=== PATIENT | male | born 1985 | race Caucasian/White ===

== ENCOUNTER → 2020-07-02 09:50 | Outpatient (REF) | payer OTHER, SELFPAY ==
--- NOTE | 2020-07-02 09:30 | CA_ITS ---
Acquisition Time: 2020-07-02 10:08:18 Total Exercise Time: 00:09:31 Test Indications: cp Medications: see chart Protocol: CECILIA Max HR: 181 BPM 98% of Pred: 184 BPM Max BP: 144/060 mmHG Max Work Load: 10.9 METS Exercise stress test using Cecilia protocol total of 9 min 31 sec, METs 10.9. Pt tolerated well, denies any anginal sx. EKG without any arrhythmias, no ischemic changes in peak exercise and in recovery. . Normotensive response to exercise. Test reviewed with Dr. Duran. Referred By: Zafar Georges Overread By: Teo Thorne
[2020-07-02 11:34] LABS: MANUAL DIFF FLAG NO
[2020-07-02 11:53] LABS: Basophils Percent Auto 0.3 % (0-2); Eosinophils Absolute Auto 0.1 X10*3/uL (0.0-0.4); Eosinophils Percent Auto 1.3 % (0-4); Hematocrit 43.5 % (42-52); Hemoglobin 14.7 g/dl (14.0-18.0); Imm Gran Abs Auto 0.13 X10*3/uL (0.00-0.03); Imm Gran Pct Auto 1.3 % (0.0-0.4); Lymphocytes Absolute Auto 2.3 X10*3/uL (1.2-4.9); Lymphocytes Percent Auto 22.7 % (20-40); Mean Corpuscular HGB Conc 33.8 g/dl (31.0-36.0); Mean Corpuscular Hemoglobin 28.6 pg (27.0-33.0); Mean Corpuscular Volume 84.6 fL (80-98); Mean Platelet Volume 10.5 fL (9.4-12.4); Monocytes Absolute Auto 0.7 X10*3/uL (0.1-1.2); Monocytes Percent Auto 6.7 % (2-11); Neutrophils Absolute Auto 6.8 X10*3/uL (2.0-8.3); Neutrophils Percent Auto 67.7 % (45-73); Platelet Count 274 X10*3/uL (160-400); Red Blood Count 5.14 X10*6/uL (4.60-5.80); Red Cell Distribution Width 12.5 % (11.0-16.0); White Blood Count 10.1 X10*3/uL (4.8-10.8)
[2020-07-02 12:11] LABS: Alanine Aminotransferase 27 U/L (0-40); Albumin Level 4.7 g/dL (3.5-5.0); Alkaline Phosphatase 90 U/L (39-117); Amylase 59 U/L (28-100); Anion Gap 13 (12-20); Aspartate Amino Transferase 12 U/L (5-37); Bilirubin Total 0.6 mg/dL (0.0-1.0); Blood Urea Nitrogen 18 mg/dL (9-16); Calcium 9.2 mg/dL (8.4-10.2); Carbon Dioxide 27 mmol/L (22-29); Chloride 104 mmol/L (96-108); Cholesterol 176 mg/dL; Estimated Glomerular Filt Rate > 60; Glucose Fasting 204 mg/dL (60-99); HDL Cholesterol 41 mg/dL; LDL Cholesterol Calculated 115 mg/dl; Lipase 11 U/L (8-78); Potassium 4.6 mmol/l (3.3-5.1); Sodium 139 mmol/L (135-145); Total Protein 7.2 g/dL (6.5-8.0); Triglycerides 103 mg/dL
[2020-07-02 12:14] LABS: Thyroid Stimulating Hormone 1.64 mIU/mL (0.32-4.0)
[2020-07-02 12:29] LABS: Creatinine Urine 277.79 mg/dL; Microalbum/Creatinine Ratio Ur 18.7 ug/mg cr
[2020-07-02 14:00] LABS: Vitamin B12 658 pg/mL (200-900)
[2020-07-02 14:05] LABS: T4 Thyroxine 7.1 ug/dL (4.5-12.0)
== END ==
LOC: HO.CARD 09:50
PROVIDERS: PCP Internal Medicine; Visit Provider Internal Medicine
DX: R07.9 Chest pain, unspecified (principal); E11.65 Type 2 diabetes mellitus with hyperglycemia; I10 Essential (primary) hypertension; E78.5 Hyperlipidemia, unspecified; E66.9 Obesity, unspecified; E78.00 Pure hypercholesterolemia, unspecified; K85.90 Acute pancreatitis without necrosis or infection, unspecified
CPT/HCPCS: 36415; 80053; 80061; 82043; 82150; 82607; 82746; 83690; 84436; 84443; 85025; 93017

== ENCOUNTER → 2020-08-07 10:20 | Outpatient (BNVA) | payer OTHER, SELFPAY | PROVIDERS: PCP Internal Medicine; Referring Provider Internal Medicine; Visit Provider Nurse Practitioner Gerontology | DX: Z76.89 Persons encountering health services in other specified circumstances (principal) ==

== ENCOUNTER 2020-10-09 15:00 | Outpatient (RCR) | payer OTHER, SELFPAY ==
--- NOTE | 2020-08-21 16:28 | MHC.PT.EP ---
[facility] [place] Office [place] Office [place] Office [address] Robert Lawson [address] [phone] F: [phone] F: [phone] F: [phone] F: [phone] Physical Therapy Plan of Care Date of Evaluation: 08/21/20 Date of Surgery: NA Diagnosis: dorsalgia Assessment: 35 y/o male referred to PT with dorsalgia. 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 He often stands with his 15# camera in thoracic extension leaning backwards. Reports pain and difficulty with prolonged standing, prolonged sitting, 1/2 kneeling. Examination shows significantly decreased lumbar AROM, significantly decreased HS length, increased tenderness to palpate mid thoracic and low back paraspinals, SI dysfunction and impaired postural awarenesss. Recommend PT 2x/week for 4 weeks (he can only come 1x/week) to address impairments, implement HEP, and optimize functional mobility. Frequency and Duration: The patient will be seen 1x/week for 5 weeks Short Term Goals: 3 weeks: 1 I with HEP 2. I with use of lumbar roll while sitting 3. Improve lumbar AROM flexion to 75% [employer] Goals: 5 weeks: 1. I with HEP and self management of sx 2. Pt will be able to sit >2 hours with pain < 3/10 and use oflumbar roll 3. Pt will be able to perform photo shoot for 3 hours with pain < 3/10 Treatment Plan: Modalities to reduce pain, spasms and effusion. Manual therapy to restore motion and function. Therapeutic exercise to improve strength and flexibility. Neuromuscular re-education for posture and balance. Therapeutic activities to return to functional activities of daily living. Please sign and return to therapist. Thank you for your referral.
--- NOTE | 2020-11-08 11:10 | MHC.PT.DC ---
[facility] [place] Office [place] Office [place] Office [address] Robert Lawson [address] [phone] F: [phone] F: [phone] F: [phone] F: [phone] Physical Therapy Discharge Report Diagnosis: dorsalgia Date of Surgery: NA Date of Evaluation: 08/21/20 Date of Discharge: 11/08/20 Treatments to Date: 5 Cancellations to Date: 0 No Shows to Date: 0 Discharge Status: Independent with HEP Discharge Summary: Pt did not f/u with further visits at this time. At time of last attended session, he was I with HEP and demonstrating improved posture. Electronically signed by: Wilma Gaffney PT Please sign and return to therapist. Thank you for your referral.
== END 2020-11-08 11:11 | disposition other institution (70) ==
LOC: HO.PT 15:00
PROVIDERS: Visit Provider Internal Medicine
DX: M54.9 Dorsalgia, unspecified (principal)
CPT/HCPCS: 97110; 97161

== ENCOUNTER 2020-10-29 12:53 | Outpatient (REF) | payer OTHER, SELFPAY ==
--- NOTE | ~2020-10-29 | XR_ITS ---
EXAMINATION: XR CERVICAL SPINE CLINICAL INFORMATION: Neck pain. COMPARISON: None TECHNIQUE: 3 views of the cervical spine were obtained. FINDINGS: There is normal cervical lordosis. The vertebral heights, alignment and disc heights are normal. There is mild ventral spondylosis at C4-C5, C5-C6 and C6-C7 disc levels. No visible acute fracture, dislocation or lytic process seen. The prevertebral soft tissues are normal. XR/XR cervical spine 2V IMPRESSION: Mild ventral spondylosis C4-C5 to C6-C7 disc levels. No visible acute fracture, dislocation or lytic process seen.
[2020-10-29 14:11] LABS: MANUAL DIFF FLAG NO
[2020-10-29 14:14] LABS: Basophils Percent Auto 0.2 % (0-2); Eosinophils Absolute Auto 0.2 X10*3/uL (0.0-0.4); Eosinophils Percent Auto 1.5 % (0-4); Hematocrit 40.6 % (42-52); Hemoglobin 14.1 g/dl (14.0-18.0); Imm Gran Abs Auto 0.11 X10*3/uL (0.00-0.03); Imm Gran Pct Auto 1.1 % (0.0-0.4); Lymphocytes Absolute Auto 2.1 X10*3/uL (1.2-4.9); Lymphocytes Percent Auto 20.7 % (20-40); Mean Corpuscular HGB Conc 34.7 g/dl (31.0-36.0); Mean Corpuscular Hemoglobin 29.3 pg (27.0-33.0); Mean Corpuscular Volume 84.4 fL (80-98); Mean Platelet Volume 10.7 fL (9.4-12.4); Monocytes Absolute Auto 0.6 X10*3/uL (0.1-1.2); Monocytes Percent Auto 5.6 % (2-11); Neutrophils Absolute Auto 7.1 X10*3/uL (2.0-8.3); Neutrophils Percent Auto 70.9 % (45-73); Platelet Count 235 X10*3/uL (160-400); Red Blood Count 4.81 X10*6/uL (4.60-5.80); Red Cell Distribution Width 12.5 % (11.0-16.0)
[2020-10-29 14:27] LABS: Estimated Average Glucose 137 mg/dL; Hemoglobin A1c % 6.4 %
[2020-10-29 14:42] LABS: Alanine Aminotransferase 20 U/L (0-40); Albumin Level 4.3 g/dL (3.5-5.0); Alkaline Phosphatase 82 U/L (39-117); Anion Gap 12 (12-20); Aspartate Amino Transferase 15 U/L (5-37); Bilirubin Total 0.6 mg/dL (0.0-1.0); Blood Urea Nitrogen 13 mg/dL (9-16); Carbon Dioxide 28 mmol/L (22-29); Chloride 104 mmol/L (96-108); Estimated Glomerular Filt Rate > 60; Glucose Random 127 mg/dL (60-115); Sodium 140 mmol/L (135-145); Total Protein 6.8 g/dL (6.5-8.0)
[2020-10-29 15:02] LABS: Thyroid Stimulating Hormone 1.28 uIU/mL (0.32-4.0)
== END 2020-10-29 12:54 | disposition home or self-care (01) ==
LOC: HO.LAB 12:53
PROVIDERS: PCP Internal Medicine; Visit Provider Internal Medicine
DX: M54.2 Cervicalgia (principal); R42 Dizziness and giddiness; E11.65 Type 2 diabetes mellitus with hyperglycemia
CPT/HCPCS: 36415; 72040; 80053; 83036; 84443; 85025

== ENCOUNTER 2020-12-25 16:00 | Outpatient (RCR) | payer OTHER, SELFPAY ==
[2020-11-13 14:10] VITALS: BP 130/73; PULSE 104
--- NOTE | 2020-11-13 14:58 | MHC.PT.EP ---
[facility] [place] Office [place] Office [place] Office [address] Robert Lawson [address] [phone] F: [phone] F: [phone] F: [phone] F: [phone] Physical Therapy Plan of Care Date of Evaluation: 11/13/20 Date of Surgery: NA Diagnosis: Dizziness and giddiness Assessment: 35 year old male referred for dizziness and giddiness . Pt reports of having sudden onset of dizziness and neck pain about 3 weeks back. Denies any trauma or fall. Pt presented with intact smooth pursuit, saccades, visual tracking, static and dynamic balance and VOR. He was negative for nystagmus and vertigo in B mak pikes and B roll test. He only experiences dizziness everytime he moved from supine to sit and does sudden neck movements. 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 Pt's symptoms suggestive of cervicogenic dizziness. He does not appear to have symptoms of vestibular hypofunction. Pt would benefit from return to therapy to cervical assessment Frequency and Duration: The patient will be seen 1/ week for 1 week Short Term Goals: 1. Pt will return to therapy for detailed cervical assessment in 1 week. Detention Goals: Treatment Plan: Modalities to reduce pain, spasms and effusion. Manual therapy to restore motion and function. Therapeutic exercise to improve strength and flexibility. Neuromuscular re-education for posture and balance. Therapeutic activities to return to functional activities of daily living. Electronically signed by: Emily Rader DPT Please sign and return to therapist. Thank you for your referral.
--- NOTE | 2020-11-20 16:55 | MHC.PT.RE ---
[facility] [place] Office [place] Office [place] Office [address] Robert Lawson [address] [phone] F: [phone] F: [phone] F: [phone] F: [phone] Physical Therapy Re-evaluation Diagnosis: Cervicalgia Date of Surgery: NA Date of Evaluation: 11/20/20 Treatments to Date: 2 Cancellations to Date: 0 No Shows to Date: 0 Subjective: Refer to evaluation Pain Score: 3 Pain Location: Sub-occipital release Objective Measures: Cervical ROM: Flexion: 45 degrees, 4- RSB: 30 degrees, 4- LSB:30 degrees, 4- RROT: 45 degrees, 4- LROT: 55 degrees, 4- Extension:40 degrees, 4- (Pain in SO Muscles) C1-C2 Rotation: Moderate Restriction B Shoulder ROM WNL Shoulder MMT: Flexion: 4+ B Abduction: 4+ B Extension: 5- B IR: 4+ B ER: 4 B Assessment: Jean-Pierre is a 35-year-old male presenting to physical therapy after experiencing dizziness, headaches, and pain in the back of his neck and head. He displays deficits in global cervical ROM, cervical muscle strength, B shoulder strength, impaired posture and tightness in his sub-occipital musculature and cervical extensors. 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 Jean-Pierre was introduced to cervical ROM and postural strengthening exercises today. He tolerated all exercises without any aggravation of his pain. Pt was educated on the importance of maintaining proper posture when working from home and provided with home exercises to reduce his pain and improve his posture. He also displayed tightness and muscle guarding in his suboccipital musculature, which is where he experiences the majority of his pain. Future therapy sessions should continue to focus on improving pt posture and reducing tightness in his suboccipital musculature. 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 2.) Pt will independently check and assess seated posture every 30 minutes while working within 3 weeks. Half-Way Goals: 1.) Pt will demonstrate active cervical rotation WNL within 6 weeks to allow him to safely check blind spots while driving within 6 weeks. 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 Frequency and Duration: The patient will be seen 2 visits per week for 6 weeks. Treatment Plan: Therapeutic Exercise Dynamic Therapeutic Activities Neuromuscular Re-ed Manual Therapies Joint Mobilization Taping Home Exercise Program Patient Education Hot or Cold Pack Evaluate cervical spine Reviewed/ Agreed with Student Documentation: Yes Therapist: Emily Rader PT DPKori Electronically signed by: Emily Rader PT, DPT Please sign and return to therapist. Thank you for your referral.
--- NOTE | 2021-01-01 11:33 | MHC.PT.DC ---
[facility] [place] Office [place] Office [place] Office [address] Robert Lawson [address] [phone] F: [phone] F: [phone] F: [phone] F: [phone] Physical Therapy Discharge Report Diagnosis: Cervicalgia Date of Surgery: NA Date of Evaluation: 11/20/20 Date of Discharge: 01/01/21 Treatments to Date: 6 Cancellations to Date: 0 No Shows to Date: 0 Discharge Status: Improved Function Independent with HEP Discharge Summary: Jean-Pierre has completed 6 visits of outpatient physical therapy. During this time he has made improvements in cervical ROM and posture. He continues to demonstrate compensatory patterns when performing scapular strengthening exercises and reaching overhead as well as tightness in his BL upper trap. Jean-Pierre continues to report pain in his neck and in the back of his head which has been persistent and has not been resolving. Jean-Pierre requested that today be his last day of therapy due to lack of progress and his ability to perform his HEP independently. He was educated on proper performance of his HEP as well as STM techniques he can utilize at home to loosen his upper trap musculature. He has met 50% of his physical therapy is now being discharged from physical therapy per his request. Jean-Pierre reports he has a follow-up appointment with him physician at the end of this month to address his neck pain and intermittent episodes of dizziness. Electronically signed by: Emily Rader, PT, DPT Please sign and return to therapist. Thank you for your referral.
== END 2021-01-13 09:41 | disposition other institution (70) ==
LOC: HO.PT 16:00
PROVIDERS: PCP Internal Medicine; Visit Provider Internal Medicine
DX: R42 Dizziness and giddiness (principal)
CPT/HCPCS: 95992; 97012; 97110; 97112; 97140; 97161; 97164

== ENCOUNTER → 2021-01-20 13:25 | Outpatient (BNVA) | payer OTHER, SELFPAY | PROVIDERS: PCP Internal Medicine; Visit Provider Nurse Practitioner Gerontology | DX: E11.9 Type 2 diabetes mellitus without complications (principal); E55.9 Vitamin D deficiency, unspecified; E66.01 Morbid (severe) obesity due to excess calories; Z68.36 Body mass index [BMI] 36.0-36.9, adult; Z79.84 Long term (current) use of oral hypoglycemic drugs; Z71.3 Dietary counseling and surveillance | CPT/HCPCS: 82947; 99212 ==

== ENCOUNTER → 2021-02-03 14:05 | Outpatient (REF) | payer OTHER, SELFPAY | LOC: HO.SL 14:05 | PROVIDERS: PCP Internal Medicine; Visit Provider Internal Medicine | DX: Z13.89 Encounter for screening for other disorder (principal) ==

== ENCOUNTER 2021-03-10 11:50 | Emergency (ER) | payer OTHER, SELFPAY ==
--- NOTE | 2021-03-10 | ECG_ITS ---
Test Reason : CHEST PAIN Blood Pressure : / mmHG Vent. Rate : 083 BPM Atrial Rate : 083 BPM P-R Int : 132 ms QRS Dur : 086 ms QT Int : 338 ms P-R-T Axes : 013 000 -05 degrees QTc Int : 397 ms Normal sinus rhythm Minimal voltage criteria for LVH, may be normal variant Nonspecific T wave abnormality Abnormal ECG When compared with ECG of 08-JUN-2020 04:51, No significant change was found Referred By: Generic ED Physician Electronically Signed By:Jayjay Valdez
--- NOTE | ~2021-03-10 | XR_ITS ---
EXAMINATION: XR CHEST CLINICAL INFORMATION: Cough and chest pain. COMPARISON: None TECHNIQUE: 2 views of the chest were obtained. FINDINGS: The lungs are well-expanded and clear of acute process. The heart size and pulmonary vascularity is normal. No gross bony abnormality seen. XR/XR chest 2V IMPRESSION: Unremarkable chest exam.
[2021-03-10 12:02] VITALS: BP 136/70; PULSE 89; RESP 16; TEMP 36.6; O2SAT 98; BMI 36.3
--- NOTE | 2021-03-10 12:30 | ED_ITS ---
HPI - Chest Pain General Chief Complaint: Chest Pain Stated Complaint: elevated heart rate Time Seen by Provider: 03/10/21 12:19 Source: patient Mode of arrival: ambulatory Limitations: no limitations History of Present Illness HPI narrative: Patient presents to the ED elevated heart rate ( 140s) and intermittent chest pain for 1 year. Patient has been evaluated by his PCP for this. Patient had a normal stress test last year. Patient states his thyroid level were normal. Patient states blood count was normal. Patient denies any family history of anyone having a heart attack less than 40 of 50. Patient den ies any drug use. Patient denies any alcohol abuse. Patient denies taking any new any G drinks or caffeine abuse. Patient denies any coughing, fever, chills, swelling of lower extremity, chest pain or shortness of breath on exertion, calf pain, recent surgery, or recent trauma. Patient states having similar episodes yesterday goint into today so came to the ED for evaluation. Patient's PCP aw are if he has being having this problem for 1 year. Patient presently not in any distress Related Data Home Medications Medication Instructions Recorded Confirmed Bacillus coagulans 250 million cell PO 07/09/20 01/20/21 cell chewable tablet aspirin 81 mg tablet,delayed 81 mg PO DAILY 07/09/20 01/20/21 release milk thistle 150 mg capsule 150 mg PO BID 07/09/20 01/20/21 melatonin 5 mg capsule 5 mg PO cap 08/07/20 01/20/21 turmeric 400 mg capsule 400 mg PO cap 08/07/20 01/20/21 apple cider vinegar 600 mg capsule 600 mg PO cap 01/20/21 01/20/21 Previous Rx's Medication Instructions Recorded flash glucose scanning reader #1 ea 07/02/20 ibuprofen 800 mg tablet 800 mg PO Q8H PRN 15 Days #30 tab 08/22/20 simvastatin 5 mg tablet 5 mg PO BEDTIME #30 tab 10/28/20 flash glucose sensor 1 ea TOPICAL DIRECTED #2 kit 12/26/20 doxycycline hyclate 100 mg tablet 100 mg PO BID 14 Days #28 tab 01/10/21 empagliflozin 10 mg tablet 10 mg PO DAILY #30 tab 01/16/21 lisinopril 2.5 mg tablet 2.5 mg PO DAILY 90 Days #90 tab 01/27/21 metformin 500 mg/5 mL oral solution 1,000 mg PO BID 30 Days #600 ml 03/03/21 metformin 500 mg tablet 1,000 mg PO BID 90 Days #360 tab 03/06/21 Allergies Allergy/AdvReac Type Severity Reaction Status Date / Time apple [APPLE] Allergy Severe THROAT Verified 01/20/21 13:59 CLOSING AND HIVES animal dander [ANIMAL DANDER] Allergy Intermediate PUFFY EYES Unverified 01/20/21 13:59 SNEEZING COUGHING bees Allergy Unknown Unknown Uncoded 01/20/21 13:59 Review of Systems Review of Systems: Yes all other systems are reviewed and are negative Constitutional: Constitutional: Reports as per HPI and Reports no additional constitutional complaints Eyes: Eyes: Reports as per HPI and Reports no additional eye complaints ENT: Reports system reviewed and no additional complaints, except as documented and Reports as per HPI Cardiovascular: Cardiovascular: Reports as per HPI, Reports no additional ca rdiovascular complaints and Reports chest pain (For 1 year) Comments: Elevated heart rate for 1 year Respiratory: Respiratory: Reports as per HPI and Reports no additional respiratory complaints Gastrointestinal: Gastrointestinal: Reports as per HPI and Reports no additional gastrointestinal complaints Musculoskeletal: Musculoskeletal: Reports no additional musculoskeletal complaints and Reports as per HPI Neurologic: Reports system reviewed and no additional complaints, except as documented and Reports as per HPI Psychiatric: Psychiatric: Reports no additional psychiatric complaints and Reports as per HPI [facility] Past Medical History Medical History (Updated 03/10/21 @ 15:13 by RADHA Younger) Bilateral hand pain Diabetes mellitus type 2, controlled, without complications Fatty liver Hypercholesterolemia Obesity Obesity due to excess calories Pancreatitis Type 2 diabetes mellitus with hyperglycemia Vitamin D deficiency Surgical History No pertinent past surgical history Family History Family History Father Alive and well Mother Alive and well Maternal Grandfather Diabetes Maternal Grandmother Diabetes Social History Social History Household Members: Significant Other Household Members Other:: roomates Alcohol intake: never Advance Directives: Yes Advance Directives Information Provided: No Advance Directives on File: No Physical Exam Vital Signs: Vital Signs: Last Vital Signs Temp 97.9 F 03/10/21 12:02 Pulse 80 03/10/21 18:04 Resp 16 03/10/21 18:04 BP 119/65 03/10/21 18:04 Pulse Ox 97 03/10/21 18:04 Body Mass Index 36.3 Const: General: cooperative, healthy appearing, comfortable, no acute distress, well developed, alert, awake and Physically active Orientation/consciousness: patient oriented x3 HENMT: Head: Yes normal to inspection, Yes No palpable skull fracture present, Yes normocephalic and Yes atraumatic Eyes: General: appearance normal, both eyes and all related structures Neck: Neck: Yes normal visual inspection, Yes full ROM, Yes no lymphadenopathy, Yes no meningeal signs, Yes trachea midline, Yes supple and No tender Chest: Chest palpation & inspection: normal inspection of the chest and normal palpation of entire chest wall Resp: Effort & Inspection: normal respiratory effort and able to speak in complete sentences Auscultation: clear to auscultation bilaterally Cardio: Jugular venous distension: no JVD Heart sounds: S1 normal heart sound present and S2 normal heart sound present GI: Inspection: Yes normal to inspection and No abdominal wall ecchymosis Palpation (GI): Soft to palpation, not firm, nontender, no guarding and not rigid : General: No CVA tenderness and Yes no CVA tenderness Back/Spine/Pelvis: Back: no CVA tenderness, No CVA tenderness and No back tenderness Skin: General skin exam: no rashes or lesions noted and elasticity normal Neuro: General: patient oriented x3, no meningeal signs and CN's II-XI intact bilaterally Cranial nerves: Yes CN's II-XII intact bilaterally Extrem: Other: Lower extremities negative for swelling, pitting edema, or calf tenderness Psych: Appearance: grossly normal, well kempt and not disheveled Course Course Course Narrative: I reviewed patient's lab results on this patient 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 Will evaluate patient make sure there is no cardiac e vent in the ED. symptoms may be due to anxiety, but with medical workup Reevaluation(s) Reevaluation #1: patient not in any distress. Patient's EKG negative for STEMI and negative for any new changes. Patient's troponins after having atypical chest pain since yesterday came back negative. Patient's D-dimer is negative. Patient's PERC score is 0. Chest x-ray normal. COVID swab negative. Patient presently comfortable in bed not in any distress. Ab not suspect [place] or PE or any pulmonary / cardiology indication. symptoms most likely due to anxiety due to patient having the symptoms 1 year and has had multiple normal workup by Cardiology and PCP. thryoid levels are normal. Patient informed to follow-up with PCP. Patient asymptomatic and did not have any chest pain at discharge. patient was in self to comfortably watching movies Time: 15:08 MDM - Chest Pain MDM Narrative Medical decision making narrative: atypical chest pain. Anxiety Lab Data Result diagrams: 03/10/21 13:04 03/10/21 13:04 Labs: Lab Results 03/10/21 03/10/21 03/10/21 Range/Units 13:04 13:04 13:04 WBC 11.1 H (4.8-10.8) X10*3/uL RBC 5.18 (4.60-5.80) X10*6/uL Hgb 14.9 (14.0-18.0) g/dl Hct 43.4 (42-52) % MCV 83.8 (80-98) fL MCH 28.8 (27.0-33.0) pg MCHC 34.3 (31.0-36.0) g/dl RDW 12.9 (11.0-16.0) % Plt Count 260 (160-400) X10*3/uL MPV 10.2 (9.4-12.4) fL Immature Gran % (Auto) 1.3 H (0.0-0.4) % Neut % (Auto) 73.8 H (45-73) % Lymph % (Auto) 17.9 L (20-40) % [place] % (Auto) 5.8 (2-11) % Eos % (Auto) 0.8 (0-4) % Baso % (Auto) 0.4 (0-2) % Lymph # (Auto) 2.0 (1.2-4.9) X10*3/uL [place] # (Auto) 0.7 (0.1-1.2) X10*3/uL Eos # (Auto) 0.1 (0.0-0.4) X10*3/uL Baso # (Auto) 0.0 (0.0-0.2) X10*3/uL Abs Immat Gran (auto) 0.15 H (0.00-0.03) X10*3/uL Absolute Neuts (auto) 8.2 (2.0-8.3) X10*3/uL Absolute Nucleated RBC 0.000 (0.0-0.012) X10*3/uL Nucleated RBC % (auto) 0.0 (0.0-0.2) /100WBC PT 12.5 (10.8-13.0) SEC INR 1.1 (0.9-1.1) APTT 32.1 (24.1-38.0) SEC D-Dimer < 200 NG/ML Sodium 140 (135-145) mmol/L Potassium 4.3 (3.3-5.1) mmol/L Chloride 107 (96-108) mmol/L Carbon Dioxide 23 (22-29) mmol/L Anion Gap 14 (12-20) BUN 15 (9-16) mg/dL Creatinine 0.87 (0.5-1.4) mg/dL Estim Creat Clear Calc 130.0 Estimated GFR > 60 Random Glucose 186 H D (60-115) mg/dL Calcium 9.4 (8.4-10.2) mg/dL Total Bilirubin 0.6 (0.0-1.0) mg/dL AST 14 (5-37) U/L ALT 26 (0-40) U/L Alkaline Phosphatase 79 (39-117) U/L Troponin I High Sens (<3.5-35.0) ng/L Total Protein 6.7 (6.5-8.0) g/dL Albumin 4.3 (3.5-5.0) g/dL TSH 0.68 (0.32-4.0) uIU/mL COVID-19 (JUANY) (Negative) COVID-19 Clin Com 03/10/21 03/10/21 03/10/21 Range/Units 13:04 13:04 16:53 WBC (4.8-10.8) X10*3/uL RBC (4.60-5.80) X10*6/uL Hgb (14.0-18.0) g/dl Hct (42-52) % MCV (80-98) fL MCH (27.0-33.0) pg MCHC (31.0-36.0) g/dl RDW (11.0-16.0) % Plt Count (160-400) X10*3/uL MPV (9.4-12.4) fL Immature Gran % (Auto) (0.0-0.4) % Neut % (Auto) (45-73) % Lymph % (Auto) (20-40) % [place] % (Auto) (2-11) % Eos % (Auto) (0-4) % Baso % (Auto) (0-2) % Lymph # (Auto) (1.2-4.9) X10*3/uL [place] # (Auto) (0.1-1.2) X10*3/uL Eos # (Auto) (0.0-0.4) X10*3/uL Baso # (Auto) (0.0-0.2) X10*3/uL Abs Immat Gran (auto) (0.00-0.03) X10*3/uL Absolute Neuts (auto) (2.0-8.3) X10*3/uL Absolute Nucleated RBC (0.0-0.012) X10*3/uL Nucleated RBC % (auto) (0.0-0.2) /100WBC PT (10.8-13.0) SEC INR (0.9-1.1) APTT (24.1-38.0) SEC D-Dimer NG/ML Sodium (135-145) mmol/L Potassium (3.3-5.1) mmol/L Chloride (96-108) mmol/L Carbon Dioxide (22-29) mmol/L Anion Gap (12-20) BUN (9-16) mg/dL Creatinine (0.5-1.4) mg/dL Estim Creat Clear Calc Estimated GFR Random Glucose (60-115) mg/dL Calcium (8.4-10.2) mg/dL Total Bilirubin (0.0-1.0) mg/dL AST (5-37) U/L ALT (0-40) U/L Alkaline Phosphatase (39-117) U/L Troponin I High Sens < 3.5 < 3.5 (<3.5-35.0) ng/L Total Protein (6.5-8.0) g/dL Albumin (3.5-5.0) g/dL TSH (0.32-4.0) uIU/mL COVID-19 (JUANY) Negative (Negative) COVID-19 Clin Com See Note Discharge Plan Discharge Clinical Impression: Atypical chest pain Patient Disposition: Home, Self-Care Instructions: Chest Pain (ED) Additional Instructions: return to the ED for worsening chest pain, shortness of breath, swelling of lower extremity, calf pain, coughing up blood, fever, chills, dizziness, or any other concerning symptoms. 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 Prescriptions: No Action (DME) FreeStyle Kobi 14 Day Guffey Misc See Rx Instructions .ROUTE .MEDSUPPLY Qty: 1 RF: 0 simvastatin 5 mg tablet 5 mg PO BEDTIME Qty: 30 RF: 5 flash glucose sensor [FreeStyle Kobi 14 Day Sensor] Kit 1 ea topical DIRECTED Qty: 2 RF: 5 lisinopril 2.5 mg tablet 2.5 mg PO DAILY 90 Days Qty: 90 RF: 3 metformin 500 mg/5 mL solution 1,000 mg PO BID 30 Days Qty: 600 RF: 5 metformin 500 mg tablet 1,000 mg PO BID 90 Days Qty: 360 RF: 3 doxycycline hyclate 100 mg tablet 100 mg PO BID 14 Days Qty: 28 RF: 0 aspirin [Adult Aspirin Regimen] 81 mg tablet,delayed release (DR/EC) 81 mg PO DAILY RF: 0 Digestive Advantage Prob Gummy 250 million cell tablet,chewable PO RF: 0 milk thistle 150 mg capsule 150 mg PO BID RF: 0 melatonin 5 mg capsule 5 mg PO RF: 0 turmeric 400 mg capsule 400 mg PO RF: 0 apple cider vinegar 600 mg capsule 600 mg PO RF: 0 ibuprofen 800 mg tablet 800 mg PO Q8H PRN (Reason: pain) 15 Days Qty: 30 RF: 0 Jardiance 10 mg tablet 10 mg PO DAILY Qty: 30 RF: 4 Referrals: Po,Zafar Sinha MD [Primary Care Provider] - 2 days ( atypical chest pain for 1 year. D-dimer negative. Troponins negative. EKG negative for STEMI. COVID swab negative. Chest x-ray normal. Thyroid levels) Interventions: ED Discharge Assessment Last Done: 03/10/21 18:14 Discharge Date/Time: 03/10/21 18:16 Print Language: Anguill[place]
[2021-03-10 13:10] LABS: MANUAL DIFF FLAG NO
[2021-03-10 13:12] LABS: Basophils Percent Auto 0.4 % (0-2); Eosinophils Absolute Auto 0.1 X10*3/uL (0.0-0.4); Eosinophils Percent Auto 0.8 % (0-4); Hematocrit 43.4 % (42-52); Hemoglobin 14.9 g/dl (14.0-18.0); Imm Gran Abs Auto 0.15 X10*3/uL (0.00-0.03); Imm Gran Pct Auto 1.3 % (0.0-0.4); Lymphocytes Percent Auto 17.9 % (20-40); Mean Corpuscular HGB Conc 34.3 g/dl (31.0-36.0); Mean Corpuscular Hemoglobin 28.8 pg (27.0-33.0); Mean Corpuscular Volume 83.8 fL (80-98); Mean Platelet Volume 10.2 fL (9.4-12.4); Monocytes Absolute Auto 0.7 X10*3/uL (0.1-1.2); Monocytes Percent Auto 5.8 % (2-11); Neutrophils Absolute Auto 8.2 X10*3/uL (2.0-8.3); Neutrophils Percent Auto 73.8 % (45-73); Platelet Count 260 X10*3/uL (160-400); Red Blood Count 5.18 X10*6/uL (4.60-5.80); Red Cell Distribution Width 12.9 % (11.0-16.0); White Blood Count 11.1 X10*3/uL (4.8-10.8)
[2021-03-10 13:18] LABS: INTERNATIONAL NORM RATIO 1.1 (0.9-1.1); Prothrombin Time 12.5 SEC (10.8-13.0)
[2021-03-10 13:21] LABS: D Dimer < 200 NG/ML; Partial Thromboplastin Time 32.1 SEC (24.1-38.0)
[2021-03-10 13:26] LABS: COVID-19 Test Negative (Negative)
[2021-03-10 13:42] LABS: Alanine Aminotransferase 26 U/L (0-40); Albumin Level 4.3 g/dL (3.5-5.0); Alkaline Phosphatase 79 U/L (39-117); Anion Gap 14 (12-20); Aspartate Amino Transferase 14 U/L (5-37); Bilirubin Total 0.6 mg/dL (0.0-1.0); Blood Urea Nitrogen 15 mg/dL (9-16); Calcium 9.4 mg/dL (8.4-10.2); Carbon Dioxide 23 mmol/L (22-29); Chloride 107 mmol/L (96-108); Estimated Glomerular Filt Rate > 60; Glucose Random 186 mg/dL (60-115); Potassium 4.3 mmol/L (3.3-5.1); Sodium 140 mmol/L (135-145); Total Protein 6.7 g/dL (6.5-8.0)
[2021-03-10 13:48] LABS: Troponin-I High Sensitivity < 3.5 ng/L (<3.5-35.0)
[2021-03-10 14:02] LABS: TSH reflex Free T4 0.68 uIU/mL (0.32-4.0)
[2021-03-10 16:35] VITALS: BP 114/62; PULSE 80; RESP 16; O2SAT 98
[2021-03-10 17:40] LABS: Troponin-I High Sensitivity < 3.5 ng/L (<3.5-35.0)
[2021-03-10 18:04] VITALS: BP 119/65; PULSE 80; RESP 16; O2SAT 97
== END 2021-03-10 18:16 | disposition home or self-care (01) ==
PROVIDERS: Physician Assistant; Emergency Provider Emergency Medicine; PCP Internal Medicine
DX: R07.89 Other chest pain (principal); E11.9 Type 2 diabetes mellitus without complications; Z79.84 Long term (current) use of oral hypoglycemic drugs; Z20.822 Contact with and (suspected) exposure to COVID-19
CPT/HCPCS: 36415; 71046; 80053; 84443; 84484; 85025; 85379; 85610; 85730; 87635; 93005; 99283; 99285

== ENCOUNTER → 2021-06-23 14:42 | Outpatient (BNVA) | payer OTHER, SELFPAY | PROVIDERS: PCP Internal Medicine; Referring Provider Internal Medicine; Visit Provider Internal Medicine Cardiovascular Disease | DX: R07.89 Other chest pain (principal); R00.2 Palpitations | CPT/HCPCS: 93005; 99202 ==

== ENCOUNTER → 2021-07-28 13:33 | Outpatient (BNVA) | payer OTHER, SELFPAY | PROVIDERS: PCP Internal Medicine; Visit Provider Nurse Practitioner Gerontology | DX: E55.9 Vitamin D deficiency, unspecified (principal); E11.9 Type 2 diabetes mellitus without complications; L60.0 Ingrowing nail | CPT/HCPCS: 82947; 83036; 99212 ==

== ENCOUNTER 2021-08-13 11:44 | Outpatient (REF) | payer OTHER, SELFPAY ==
[2021-08-13 12:04] LABS: MANUAL DIFF FLAG NO
[2021-08-13 12:27] LABS: Basophils Absolute Auto 0.1 X10*3/uL (0.0-0.2); Basophils Percent Auto 0.6 % (0-2); Eosinophils Absolute Auto 0.5 X10*3/uL (0.0-0.4); Eosinophils Percent Auto 4.8 % (0-4); Hematocrit 45.8 % (42.0-52.0); Hemoglobin 15.8 g/dl (14.0-18.0); Imm Gran Abs Auto 0.12 X10*3/uL (0.00-0.03); Imm Gran Pct Auto 1.3 % (0.0-0.4); Lymphocytes Absolute Auto 2.1 X10*3/uL (1.2-4.9); Mean Corpuscular HGB Conc 34.5 g/dl (31.0-36.0); Mean Corpuscular Hemoglobin 29.1 pg (27.0-33.0); Mean Corpuscular Volume 84.3 fL (80.0-98.0); Mean Platelet Volume 10.4 fL (9.4-12.4); Monocytes Absolute Auto 0.7 X10*3/uL (0.1-1.2); Monocytes Percent Auto 6.8 % (2-11); Neutrophils Absolute Auto 6.2 x10*3/uL (2.0-8.3); Neutrophils Percent Auto 64.5 % (45-73); Platelet Count 236 X10*3/uL (160-400); Red Blood Count 5.43 X10*6/uL (4.60-5.80); Red Cell Distribution Width 12.6 % (11.0-16.0); White Blood Count 9.6 X10*3/uL (4.8-10.8)
[2021-08-13 12:41] LABS: Alanine Aminotransferase 37 U/L (0-40); Albumin Level 4.5 g/dL (3.5-5.0); Alkaline Phosphatase 81 U/L (39-117); Anion Gap 11 (12-20); Aspartate Amino Transferase 18 U/L (5-37); Bilirubin Total 0.5 mg/dL (0.0-1.0); Blood Urea Nitrogen 19 mg/dL (9-16); Calcium 9.3 mg/dL (8.4-10.2); Carbon Dioxide 24 mmol/L (22-29); Chloride 109 mmol/L (96-108); Cholesterol 165 mg/dL; Estimated Glomerular Filt Rate > 60; Glucose Fasting 152 mg/dL (60-99); HDL Cholesterol 45 mg/dL; LDL Cholesterol Calculated 100 mg/dl; Potassium 4.4 mmol/L (3.3-5.1); Sodium 140 mmol/L (135-145); Total Protein 7.1 g/dL (6.5-8.0); Triglycerides 101 mg/dL
[2021-08-13 12:58] LABS: Creatinine Urine 75.17 mg/dL; Microalbumin Urine < 5.0 mg/L
[2021-08-13 13:03] LABS: Vitamin D 25-OH Total 41.5 ng/mL (>30)
[2021-08-13 13:06] LABS: Thyroid Stimulating Hormone 1.72 uIU/mL (0.32-4.0); Vitamin D 25-OH Total 38.5 ng/mL (>30)
[2021-08-13 13:15] LABS: Folate 16.1 ng/mL (> or = 4.0); Vitamin B12 445 pg/mL (200-900)
[2021-08-15 16:05] LABS: LDL Cholesterol Direct 109 mg/dL (<100)
== END 2021-08-13 11:45 | disposition home or self-care (01) ==
LOC: HO.LAB 11:44
PROVIDERS: Internal Medicine Cardiovascular Disease; Absent Provider Internal Medicine; PCP Internal Medicine; Visit Provider Nurse Practitioner Gerontology
DX: E11.9 Type 2 diabetes mellitus without complications (principal); E78.00 Pure hypercholesterolemia, unspecified; E55.9 Vitamin D deficiency, unspecified
CPT/HCPCS: 36415; 80053; 80061; 82043; 82306; 82607; 82746; 83721; 84439; 84443; 85025

== ENCOUNTER → 2021-08-21 13:56 | Outpatient (REF) | payer OTHER, SELFPAY ==
--- NOTE | 2021-08-21 14:03 | CA_ITS ---
Transthoracic Echocardiogram Patient (Last, First, Middle): Jean-Pierre Hong, Gender: Male Date of : 1985 Age: 36 Procedure Date: 08/21/2021 Procedure Type: Transthoracic Echocardiogram Location: OP Height: 167.64 cm Weight: 97.07 kg BSA: 2.06 m2 Heart Rate: bpm BP: 124 / 74 mmHg Orchid Worker: EMELINA Bernard MD: Jayjay Valdez MD Symptoms: R00.2 - Palpitations Study Quality: Fair/Contrast Conclusions: - Normal left ventricular size, thickness, systolic function, and wall motion. The visually estimated ejection fraction is between 60-65%. - Normal right ventricular cavity size and systolic function. Findings Procedure Information Contrast agent, definity, is being given per protocol without apparent complications. Left Ventricle Normal left ventricular size, thickness, systolic function, and wall motion. The visually estimated ejection fraction is between 60-65%. Diastolic function is normal for age. Right Ventricle Normal right ventricular cavity size and systolic function. Atria Both atria are normal in size. Aortic Valve Normal aortic valve structure and function. There is no aortic valve stenosis. There is no aortic valve regurgitation. Mitral Valve Normal mitral valve structure and function. There is mild mitral annular calcification. There is no mitral valve regurgitation. There is no mitral valve stenosis. Pulmonic Valve Normal pulmonic valve structure and function. There is trace pulmonic valve regurgitation. Tricuspid Valve Normal tricuspid valve structure and function. There is no tricuspid valve regurgitation. Tricuspid regurgitation envelope is inadequate for calculation of right ventricular systolic pressure. Normal right atrial pressure. Great Vessels All visible segments of the aorta are normal in size. The visualized portions of the pulmonary artery and branches are normal. Venous The inferior vena cava is normal in size and collapses greater than 50% with inspiration. Pericardium/Pleural There is no evidence of pericardial effusion. Prior Study Comparison No prior study available for comparison. Measurements 2D Linear Measurements IVSd: 0.78 0.6-0.9/0.6-1.0 cm LVIDd: 4.95 3.9-5.3/4.2-5.9 cm LVIDd Index: 2.40 2.4-3.2/2.2-3.1 cm/m2 LVIDs: 3.17 2.0-3.6 cm LVPWd: 0.80 0.7-1.1 cm Ao Root: 3.00 2.1-3.5 cm LA Diam: 3.50 2.7-3.8/3.0-4.0 cm LAIDs Index: 1.70 1.5-2.3 cm/m2 LV Mass: 164.24 67-162/88-224 g LV Mass Index: 79.73 43-95/49-115 g/m2 LVOT Diam: 2.00 3.0+(-)1.3 cm 2D Systolic Function EF 4C: 65.20 >55% EF 2C: 68.80 >55% EF BiP: 65.90 >55% Mitral Valve MV Pk E: 1.06 MV PK A: 0.65 MV Decel Time: 232.00 E/A: 1.60 E'Lateral: 16.80 E'Medial: 9.68 E/E' Med: 11.00 E/E' Lat: 6.30 PHT: 68.00 MVA PHT: 3.24 Decel Benson: 4.56 Aortic Valve AoV Pk Dorian: 1.42 AoV Mn Dorian: 0.94 AoV VTI: 0.27 AoV Pk Grad: 8.00 Aov Mn Grad: 4.00 WAYNE Cont.VTI: 2.49 LVOT LVOT Pk Dorian: 1.18 LVOT Mn Dorian: 0.78 LVOT VTI: 0.21 LVOT Pk Grad: 6.00 LVOT Mn Grad: 3.00 LVOT Diam: 2.00 LVOT Area: 3.14 Diastolic Function MV Pk E: 1.06 MV Pk A: 0.65 E/A: 1.60 E'Medial: 9.68 E/E' Med: 11.00 E' Laterial: 16.80 E/E' Lat: 6.30 Right Ventricle TAPSE (mm): 2.14 TVS' Dorian: 13.70 Tricuspid Valve RA Press: 8.00 Great Vessels Aorta Ao Root-2D: 3.00 2.0-3.7 cm Ao Asc: 3.00 2.1-3.4 cm Pulmonary Valve PV Pk Dorian: 1.41 Peak PV Grad: 8.00 Updated in Other Vendor System with Status of Final Jayjay Valdez MD electronically signed on 08/22/2021 8:27:25 PM with status of Final
--- NOTE | 2021-08-21 15:26 | HM_ITS ---
TEST PERFORMED: Cardiac event monitoring. ENROLLMENT PERIOD: 08/21/2021, to 09/20/2021; 30 days. REQUESTING PHYSICIAN: Jayjay Valdez M.D. INDICATION: Palpitations. FINDINGS: In the above monitoring period, the underlying rhythm is sinus with rates from 75 to 142 beats per minute. A single premature atrial contraction and 1 ventricular couplet were recorded. There were numerous symptoms documented throughout the recording. Including racing, fluttering, palpitations, chest pain, dizziness at different times and essentially correlate with either sinus rhythm or sinus tachycardia. During the isolated occurrence of PAC and ventricular couplet, he had mentioned dizziness and palpitations. CONCLUSION: Study shows underlying sinus rhythm with isolated premature atrial contraction and ventricular couplet. Varying symptoms throughout the monitoring period correlating with sinus rhythm and sinus tachycardia. Luís Duran MD HS/JUSTINE / [id number] MTDD
== END ==
LOC: HO.CARD 13:56
PROVIDERS: PCP Internal Medicine; Visit Provider Internal Medicine Cardiovascular Disease
DX: R00.2 Palpitations (principal)
CPT/HCPCS: 93270; 93306; Q9957

== ENCOUNTER 2021-09-11 13:58 | Outpatient (REF) | payer OTHER, SELFPAY ==
[2021-09-11 14:57] LABS: Influenza A PCR NEGATIVE (Negative); Influenza B PCR NEGATIVE (Negative); Resp Syncy Virus RNA Qual PCR NEGATIVE (Negative); SARS COV2 PCR INHOUSE POSITIVE (Negative)
== END 2021-09-11 13:59 | disposition home or self-care (01) ==
LOC: HO.LNP 13:58
PROVIDERS: Visit Provider Physician Assistant Medical
DX: Z20.822 Contact with and (suspected) exposure to COVID-19 (principal); J06.9 Acute upper respiratory infection, unspecified
CPT/HCPCS: 0241U

== ENCOUNTER → 2021-10-06 15:00 | Outpatient (BNVA) | payer OTHER, SELFPAY | PROVIDERS: PCP Internal Medicine; Referring Provider Internal Medicine; Visit Provider Nurse Practitioner Family | DX: K21.9 Gastro-esophageal reflux disease without esophagitis (principal); K59.01 Slow transit constipation; R10.13 Epigastric pain | CPT/HCPCS: 99202 ==

== ENCOUNTER 2021-10-06 16:04 | Outpatient (REF) | payer OTHER, SELFPAY ==
[2021-10-06 17:33] LABS: Alanine Aminotransferase 25 U/L (0-40); Albumin Level 4.5 g/dL (3.5-5.0); Alkaline Phosphatase 75 U/L (39-117); Anion Gap 13 (12-20); Aspartate Amino Transferase 16 U/L (5-37); Bilirubin Total 0.6 mg/dL (0.0-1.0); Blood Urea Nitrogen 13 mg/dL (9-16); Calcium 9.8 mg/dL (8.4-10.2); Carbon Dioxide 25 mmol/L (22-29); Chloride 109 mmol/L (96-108); Estimated Glomerular Filt Rate > 60; Glucose Random 133 mg/dL (60-115); Lipase 15 U/L (8-78); Potassium 4.4 mmol/L (3.3-5.1); Sodium 143 mmol/L (135-145); Total Protein 7.2 g/dL (6.5-8.0)
[2021-10-06 17:54] LABS: Vitamin D 25-OH Total 45.9 ng/mL (>30)
[2021-10-11 13:11] LABS: Transglutaminase Ab IgG <1.0 U/mL; Transglutaminase IgA <1.0 U/mL
== END 2021-10-06 16:05 | disposition home or self-care (01) ==
LOC: HO.LAB 16:04
PROVIDERS: Internal Medicine Cardiovascular Disease; Nurse Practitioner Gerontology; PCP Internal Medicine; Visit Provider Nurse Practitioner Family
DX: R10.11 Right upper quadrant pain (principal); R14.0 Abdominal distension (gaseous); R19.7 Diarrhea, unspecified; E11.9 Type 2 diabetes mellitus without complications; E55.9 Vitamin D deficiency, unspecified
CPT/HCPCS: 36415; 80053; 82306; 83690; 86364

== ENCOUNTER 2021-12-01 14:36 | Outpatient (REF) | payer OTHER, SELFPAY ==
[2021-12-01 15:42] LABS: Anion Gap 14 (12-20); Blood Urea Nitrogen 13 mg/dL (9-16); Calcium 9.6 mg/dL (8.4-10.2); Carbon Dioxide 26 mmol/L (22-29); Chloride 107 mmol/L (96-108); Estimated Glomerular Filt Rate > 60; Glucose Random 145 mg/dL (60-115); Potassium 4.6 mmol/L (3.3-5.1); Sodium 142 mmol/L (135-145)
== END 2021-12-01 14:37 | disposition home or self-care (01) ==
LOC: HO.LAB 14:36
PROVIDERS: PCP Internal Medicine; Visit Provider Internal Medicine Cardiovascular Disease
DX: R07.9 Chest pain, unspecified (principal)
CPT/HCPCS: 36415; 80048

== ENCOUNTER 2021-12-16 10:49 | Day surgery (SDC) | payer OTHER, SELFPAY ==
[2021-11-20 11:48] VITALS: BMI 33.9
--- NOTE | 2021-12-15 12:23 | P.CONAN_ITS ---
Documented by User: Leisa Blair NP 12/15/21 12:26 HPI - Anesthesia Eval Consult details Narrative: 36yo M for Upper Endoscopy Cardiac cleared [facility] Active Problems Active Problems: All Active Problems (Updated 12/11/21 @ 11:00 by Zoila Noble RN) Deviated septum (Acute) Back pain (Acute) Neck pain (Acute) Tinea corporis (Acute) Tick bite of abdominal wall (Acute) Hypersomnia (Acute) Atypical chest pain (Acute) Asthma (Acute) Ingrown nail (Acute) Annual physical exam (Acute) Chest pain (Acute) GERD (gastroesophageal reflux disease) (Acute) Hypersomnia (Acute) Viral upper respiratory illness (Acute) Obesity due to excess calories (Acute) Diabetes mellitus type 2, controlled, without complications (Acute) Bilateral hand pain (Acute) Obesity (Acute) Hypercholesterolemia (Acute) Type 2 diabetes mellitus with hyperglycemia (Acute) Past Medical History Medical History Bilateral hand pain Diabetes mellitus type 2, controlled, without complications Dizziness Fatty liver H/O acute pancreatitis Heart palpitations Hypercholesterolemia Obesity Obesity due to excess calories On beta kassie at home Pancreatitis Type 2 diabetes mellitus with hyperglycemia Vitamin D deficiency Family History Family History Father Alive and well Mother Alive and well Maternal Grandfather Diabetes Maternal Grandmother Diabetes Surgical History Surgical History H/O wisdom tooth extraction Social History Social History Household Members: Significant Other Household Members Other:: roomates Housing: House Alcohol intake: never Patient Tobacco Use Status: Never used Tobacco e-Cigarette/Vaping Use: Never Used Second Hand Smoke Exposure: No Advance Directives: No Advance Directives Information Provided: Yes 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) Cognitive needs: No Hearing needs: No Vision needs: No Meds Allergies Allergy/AdvReac Type Severity Reaction Status Date / Time apple [APPLE] Allergy Severe THROAT Verified 12/15/21 13:32 CLOSING AND HIVES animal dander [ANIMAL DANDER] Allergy Intermediate PUFFY EYES Verified 12/15/21 13:32 SNEEZING COUGHING bees Allergy Unknown Unknown Uncoded 12/15/21 13:32 Home Medications Medication Instructions Recorded Confirmed Last Taken Type Bacillus coagulans 250 million cell PO 07/09/20 12/15/21 Unknown History cell chewable tablet (Digestive Advantage Probiotic Gummy) aspirin 81 mg tablet,delayed 81 mg PO DAILY 07/09/20 12/16/21 12/15/21 History release (Adult Aspirin Regimen) melatonin 5 mg capsule 5 mg PO .nightly cap 06/23/21 12/15/21 Unknown History milk thistle 150 mg capsule 300 mg PO DAILY 06/23/21 12/15/21 Unknown History ibuprofen 800 mg tablet 800 mg PO BID PRN tab 08/06/21 12/15/21 Unknown History Exam Exam Date and Time: December 15, 2021 1223 Height,Weight and Vital Signs: Height 5 ft 6 in Weight 95.254 kg Pertinent Lab Results Pertinent Lab Results: Laboratory Tests 08/13/21 12/01/21 12:01 14:57 WBC 9.6 Hgb 15.8 Hct 45.8 Plt Count 236 Sodium 142 Potassium 4.6 Chloride 107 Carbon Dioxide 26 BUN 13 Creatinine 1.04 Narrative Narrative: Coronary CTA 12/02/21 No hemodynamically singificant CAD ECHO 08/2021 Conclusions: - Normal left ventricular size, thickness, systolic function, and wall motion. The visually estimated ejection fraction is between 60-65%.? - Normal right ventricular cavity size and systolic function.? ? EKG 06/2021 NSR 92/min, nonspecific T wave changes inferior and lateral leads, QTc 430 msec. Assessment and Plan Assessment Anesthesia Assessment: Chart Reviewed Documented by User: Kimberly Khan MD 12/16/21 11:15 [facility] Past Medical History Medical History Bilateral hand pain Diabetes mellitus type 2, controlled, without complications Dizziness Fatty liver H/O acute pancreatitis Heart palpitations Hypercholesterolemia Obesity Obesity due to excess calories On beta kassie at home Pancreatitis Type 2 diabetes mellitus with hyperglycemia Vitamin D deficiency Family History Family History Father Alive and well Mother Alive and well Maternal Grandfather Diabetes Maternal Grandmother Diabetes Surgical History Surgical History H/O wisdom tooth extraction History of Problems with Anesthesia: No Social History Social History Household Members: Significant Other Household Members Other:: roomates Housing: House Alcohol intake: never Patient Tobacco Use Status: Never used Tobacco e-Cigarette/Vaping Use: Never Used Second Hand Smoke Exposure: No Advance Directives: No Advance Directives Information Provided: Yes 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) Cognitive needs: No Hearing needs: No Vision needs: No Meds Allergies Allergy/AdvReac Type Severity Reaction Status Date / Time apple [APPLE] Allergy Severe THROAT Verified 12/15/21 13:32 CLOSING AND HIVES animal dander [ANIMAL DANDER] Allergy Intermediate PUFFY EYES Verified 12/15/21 13:32 SNEEZING COUGHING bees Allergy Unknown Unknown Uncoded 12/15/21 13:32 Home Medications Medication Instructions Recorded Confirmed Last Taken Type Bacillus coagulans 250 million cell PO 07/09/20 12/15/21 Unknown History cell chewable tablet (Digestive Advantage Probiotic Gummy) aspirin 81 mg tablet,delayed 81 mg PO DAILY 07/09/20 12/16/21 12/15/21 History release (Adult Aspirin Regimen) melatonin 5 mg capsule 5 mg PO .nightly cap 06/23/21 12/15/21 Unknown History milk thistle 150 mg capsule 300 mg PO DAILY 06/23/21 12/15/21 Unknown History ibuprofen 800 mg tablet 800 mg PO BID PRN tab 08/06/21 12/15/21 Unknown History Exam Airway Mallampati Class: III (Full matt, poor mouth opening) TM Dist: >3cm Neck ROM: Full Loose/Missing/Broken Teeth: No Heart: RRR Lungs: CTA Assessment and Plan Assessment Anesthesia Assessment: Anesthesia Plan Discussed Final Anesthetic Review History of Problems with Anesthesia: No NPO: Yes ASA Class: II Final Preanesthetic Review: Meds/Allgs Chart Reviewed, Consent Obtained/Reviewed and Anes Risks/Benef Reviewed Patient Risk: Low Procedure Risk: Intermediate Anesthetic Plan Anesthetic Plan: MAC: Disposition: Standard PACU
--- NOTE | 2021-12-16 10:56 | P.HPSUR_ITS ---
Pre-Procedural Eval Section A Date of Service: 12/16/21 Section B Chief Complaint: GERD Details of Present Illness: FH of hemochromatosis Relevant Family History (Specify if Yes): Yes Relevant Social History: None Present Medications: see Short Stay Collaborative assessment Medical History: Significant History (Bilateral hand pain Diabetes mellitus type 2, controlled, without complications Dizziness Fatty liver H/O acute pancreatitis Heart palpitations Hypercholesterolemia Obesity Obesity due to excess calories On beta kassie at home Pancreatitis Type 2 diabetes mellitus wi th hyperglycemia Vitamin D defic) History of Previous Operations: Relevant previous surgery/procedure and date(s) (wisdom teeth) Allergies: Allergies Allergy/AdvReac Type Severity Reaction Status Date / Time apple [APPLE] Allergy Severe THROAT Verified 12/15/21 13:32 CLOSING AND HIVES animal dander [ANIMAL DANDER] Allergy Intermediate PUFFY EYES Verified 12/15/21 13:32 SNEEZING COUGHING bees Allergy Unknown Unknown Uncoded 12/15/21 13:32 Review of Systems Sugical H&P ROS: Negative: Constitution, Cardiovascular, Respiratory, Neurological, Psychiatric, Hem-Onc, Allergic/Immunologic, Gastrointestinal, Genitourinary, Musculoskeletal, Integumentary, Endocrine and Eyes/Ears/Nose/Throat Exam Surgical H&P Exam: Normal: HEENT, Normal: Heart, Normal: Lungs, Normal: Extremities, Normal: Abdomen, Normal: Skin and Normal: Neurological Plan Diagnosis/Plan: Unchanged I have reviewed the history and physical and performed a pertinent physical examination on my patient. No changes have occurred unless specified.
[2021-12-16 11:20] VITALS: BP 113/65; PULSE 64; RESP 16; TEMP 36.1; O2SAT 99; BMI 34.5
[2021-12-16] MEDS: Lactated Ringers 1,000 ML 100 ML IVCONT (11:25)
[2021-12-16 11:30] LABS: Glucose, Whole Blood 138 mg/dL (60-115)
--- NOTE | 2021-12-16 11:43 | PM.OP ---
Brief Operative Note Date of Service: 12/16/21 Pre-op diagnosis: non cardiac chest pain Post-op diagnosis: same Procedure: see op note Surgeon: Lexus Espinosa MD Anesthesia: MAC Was an Store Clerk Checker used for this Procedure?: No Estimated blood loss (mL): 0 Condition: stable Disposition: PACU
--- NOTE | 2021-12-16 11:44 | W.PM.OPN ---
Operative Note Operative Note Date of Service: 12/16/21 Narrative: Procedure Description: EGD FLEXIBLE TRANSORAL UPPER GASTROINTESTINAL ENDOSCOPY UPPER ENDOSCOPY Consent: Indications for the procedure and potential complications of bleeding, perforation, reaction to medications and missed diagnosis were discussed with the patient and informed consent was obtained. Instrument: Olympus GIF H 190 J mid size upper endoscope Monitoring: Vital signs and clinical assessment, continuous EKG monitoring, Pulse oximetry, Carbon Dioxide monitoring and blood pressure monitoring were done throughout the procedure. Procedure: The patient was placed in the left lateral decubitis position and pre-procedure medications were administered and a bite block was placed. The endoscope was inserted into the mouth and advanced under direct vision to the third part of duodenum. A careful inspection was made as the upper endoscope was withdrawn including a retroflexed examination of the proximal stomach; Findings and interventions are described below. Findings: Larynx:normal Esophagus: GE junction at 37 cm, diaphragm hiatus at 37 cm, no varices or esophagitis. Bx taken from GEJ, distal and proximal esophagus in separate jars Stomach: Patchy gastric erythema in antrum. Biopsies were obtained. Grade 3 flap valve on retroflexed examination of the cardia. Duodenum: Normal bulb and descending duodenum, bx taken There appeared to be markedly reduced esophageal and gastric motility Intervention: Biopsies as noted above Impression/Findings: patulous LES mild gastritis possible GI dysmotility PLAN: recommend high dose PPI for at least 3 months if sx persist and bx neg then can try TCA ,may need further studies with esophgeal manometry, pH probe or gastric emptying study marcia given DM history
[2021-12-16 11:48] VITALS: BP 112/60; PULSE 73; RESP 20; TEMP 36.4; O2SAT 100
[2021-12-16 12:03] VITALS: BP 111/52; PULSE 76; RESP 16; O2SAT 96
[2021-12-16 12:18] VITALS: BP 108/62; PULSE 72; RESP 16; TEMP 36.4; O2SAT 97
[2021-12-16 12:33] VITALS: BP 113/71; PULSE 68; RESP 14; O2SAT 99
== END 2021-12-16 13:08 ==
LOC: HO.SSS 10:50
PROVIDERS: PCP Internal Medicine; Visit Provider Internal Medicine Gastroenterology
PROC: 0DJ08ZZ Inspection of Upper Intestinal Tract, Via Natural or Artificial Opening Endoscopic (ICD-10-PCS; CPT 43235; principal; 2021-12-16 11:50)
DX: K21.9 Gastro-esophageal reflux disease without esophagitis (principal); K22.4 Dyskinesia of esophagus; K59.9 Functional intestinal disorder, unspecified; K20.80 Other esophagitis without bleeding; K29.60 Other gastritis without bleeding; K76.0 Fatty (change of) liver, not elsewhere classified; K44.9 Diaphragmatic hernia without obstruction or gangrene; K85.90 Acute pancreatitis without necrosis or infection, unspecified; K59.01 Slow transit constipation; E66.09 Other obesity due to excess calories; Z68.33 Body mass index [BMI] 33.0-33.9, adult; E78.00 Pure hypercholesterolemia, unspecified; E55.9 Vitamin D deficiency, unspecified; J45.909 Unspecified asthma, uncomplicated; E11.65 Type 2 diabetes mellitus with hyperglycemia; Z79.84 Long term (current) use of oral hypoglycemic drugs; Z79.899 Other long term (current) drug therapy
CPT/HCPCS: 43239; 82947; 88305; 88342

== ENCOUNTER → 2021-12-29 15:19 | Outpatient (BNVA) | payer OTHER, SELFPAY | PROVIDERS: PCP Internal Medicine; Referring Provider Internal Medicine; Visit Provider Nurse Practitioner Family | DX: K21.00 Gastro-esophageal reflux disease with esophagitis, without bleeding (principal); K58.9 Irritable bowel syndrome, unspecified | CPT/HCPCS: 99212 ==

== ENCOUNTER → 2022-02-05 08:03 | Outpatient (REF) | payer OTHER, SELFPAY ==
--- NOTE | ~2022-02-05 | NM_ITS ---
EXAMINATION: RADIONUCLIDE SOLID FOOD GASTRIC EMPTYING 4-HOUR STUDY CLINICAL INFORMATION: Gastritis, unspecified, without bleeding. COMPARISON: No previous gastric emptying study is available for comparison. TECHNIQUE: A standard meal consisting of 4 oz of Egg Beaters brand equivalent tagged with 1.0 mCi Tc-99m Sulfur Colloid, 8 oz water and 2 slices of toast with jelly was administered orally to the patient. Images were obtained using a dual head gamma camera in the anterior and posterior projections over of the stomach immediately post ingestion and at hourly intervals up to 4 hours post ingestion. The anterior and posterior counts at each time interval were averaged using the geometric mean and expressed as percentage of the immediate post ingestion counts. FINDINGS: There is good visualization of activity in the stomach immediately post ingestion. As the study progresses, there is good clearance of activity from the stomach and visualization of progressively increasing small bowel activity. By the end of the study, there is almost no retention noted in the stomach. Retention in the stomach at each time interval was: 1 hour 62% (normal 37%-90%) 2 hours 22% (normal 30%-60%) 3 hours 10% 4 hours 1% (normal 0%-10%) NM/NM gastric emptying study IMPRESSION: Normal 4-hour solid food gastric emptying study.
== END ==
LOC: HO.NUCMED 08:03
PROVIDERS: PCP Internal Medicine; Visit Provider Nurse Practitioner Family
DX: K29.70 Gastritis, unspecified, without bleeding (principal)
CPT/HCPCS: 78264; A9541

== ENCOUNTER → 2022-06-24 13:39 | Outpatient (BNVA) | payer OTHER, SELFPAY | PROVIDERS: PCP Internal Medicine; Visit Provider Nurse Practitioner Family | DX: K58.9 Irritable bowel syndrome, unspecified (principal); K21.9 Gastro-esophageal reflux disease without esophagitis; R10.13 Epigastric pain; R10.9 Unspecified abdominal pain; R19.7 Diarrhea, unspecified; K21.00 Gastro-esophageal reflux disease with esophagitis, without bleeding | CPT/HCPCS: 99212 ==

== ENCOUNTER → 2022-07-27 10:59 | Outpatient (BNVA) | payer OTHER, SELFPAY | PROVIDERS: PCP Internal Medicine; Visit Provider Nurse Practitioner Family | DX: G47.10 Hypersomnia, unspecified (principal); E66.01 Morbid (severe) obesity due to excess calories; E11.9 Type 2 diabetes mellitus without complications; Z68.34 Body mass index [BMI] 34.0-34.9, adult | CPT/HCPCS: 99202 ==

== ENCOUNTER → 2022-08-26 13:24 | Outpatient (BNVA) | payer OTHER, SELFPAY | PROVIDERS: PCP Internal Medicine; Visit Provider Nurse Practitioner Family | DX: K21.00 Gastro-esophageal reflux disease with esophagitis, without bleeding (principal); K58.9 Irritable bowel syndrome, unspecified | CPT/HCPCS: 99212 ==

== ENCOUNTER 2022-09-17 15:57 | Outpatient (REF) | payer OTHER, SELFPAY ==
--- NOTE | 2022-09-17 17:50 | PFT_ITS ---
Forced vital capacity 71%, FEV1 78%, FEV1/FVC ratio is 88. FEF 25-75 is 104% and MVV 63%. Post bronchodilator therapy, there is no significant change. Total lung capacity 72%, residual volume 66%. MVV 88%. CONCLUSION: Mild degree of restrictive pulmonary disorder is noted. No obstructive airway disorder. Clinical correlation recommended. MD REBECCA Lopez/MODL / [id number]
== END 2022-09-17 15:58 | disposition home or self-care (01) ==
LOC: HO.RESP 15:57
PROVIDERS: PCP Internal Medicine; Visit Provider Internal Medicine
DX: J45.909 Unspecified asthma, uncomplicated (principal)
CPT/HCPCS: 94060; 94727; 94729

== ENCOUNTER 2022-12-25 14:25 | Outpatient (REF) | payer OTHER, SELFPAY ==
[2022-12-25 17:43] LABS: Appearance Urine Clear; Color Urine Yellow; Glucose Urine UA >=1000 mg/dL (Negative); Leukocyte Esterase Urine Negative (Negative); Nitrite Urine Negative (Negative); PH 5.5 (5.0-9.0); Specific Gravity - Urine >= 1.030 (1.005-1.025); UMIC TRIGGER UACC YES; Urine Blood Negative (Negative); Urine Ketones Negative (Negative); Urine Protein Negative (Neg-Trace)
[2022-12-25 18:06] LABS: Bacteria Urine None Seen (None Seen); Hyaline Casts Urine 0-2 /LPF (0-2); RBC Urine 0-2 /HPF (0-2); Squamous Epithelial Cell Urine 0-2 /HPF (0-2); WBC Urine 0-5 /HPF (0-5)
== END 2022-12-25 14:26 | disposition home or self-care (01) ==
LOC: HO.LAB 14:25
PROVIDERS: PCP Internal Medicine; Visit Provider Nurse Practitioner Family
DX: R30.9 Painful micturition, unspecified (principal)
CPT/HCPCS: 81001; 99212

== ENCOUNTER 2023-01-14 11:25 | Outpatient (REF) | payer OTHER, SELFPAY ==
--- NOTE | ~2023-01-14 | XR_ITS ---
EXAMINATION: XR CHEST CLINICAL INFORMATION: Cough COMPARISON: 03/10/2021 TECHNIQUE: 2 views of the chest were obtained. FINDINGS: No significant abnormality is noted involving the heart, lungs, mediastinum, bony thorax or soft tissues. XR/XR chest 2V IMPRESSION: Unremarkable examination.
== END 2023-01-14 11:26 | disposition home or self-care (01) ==
LOC: HO.XRAY 11:25
PROVIDERS: PCP Internal Medicine; Visit Provider Physician Assistant
DX: R05.2 Subacute cough (principal)
CPT/HCPCS: 71046

== ENCOUNTER 2023-02-25 16:52 | Emergency (ER) | payer OTHER, SELFPAY ==
--- NOTE | ~2023-02-25 | CT_ITS ---
EXAMINATION: CT SOFT TISSUE NECK WITH CONTRAST CLINICAL INFORMATION: Left-sided anterior neck mass. COMPARISON: None available. TECHNIQUE: Multidetector helical imaging was performed in the axial plane following the administration of 60 mL of Omnipaque 350 intravenous contrast. Multiple axial reformats and coronal/sagittal reconstructions were created the technologist workstation for review. This CT examination was performed using dose optimization techniques as appropriate, variously including the following: *Automated exposure control. *Adjustment of mA and/or kV according to patient size (this includes techniques or standardized protocols for targeted exams where dose is matched to indication/reason for exam; i.e. extremities or head). *Use of iterative reconstruction technique. DLP: 906 mGy-cm FINDINGS: A metallic BB is noted along the cutaneous surface along the anterior neck at the level of the thyroid gland. Potential subcentimeter hypoattenuating nodule in the lower pole the left thyroid lobe. No additional demonstrated space-occupying lesion in this location. No significant cutaneous thickening or subcutaneous inflammation. No discrete fluid collection within the deep tissues of the neck. The premaxillary, retromaxillary, pterygopalatine fossa, orbital apical, parapharyngeal, and prelaryngeal adipose tissue is maintained. Normal appearance of the parotid and submandibular glands. No additional abnormalities of the thyroid gland. Scattered subcentimeter lymph nodes bilaterally, none of which are pathologically enlarged or abnormally enhancing. No focal lesion or abnormal enhancement within the intrinsic tissues of the tongue or floor of mouth. Normal mucosal contours of the pharynx and larynx without abnormal enhancement. Normal appearance of the hyoid bone, thyroid cartilage, or cartilaginous trachea. The airways remains widely patent. No radiopaque foreign bodies. The atlantooccipital and atlantoaxial articulations remain well aligned. There is anatomic alignment of the vertebral bodies and posterior elements. No evidence of acute fracture or subluxation of the cervical spine. The vertebral body heights are maintained. Moderate degenerative disc disease from C4-C7. No evidence of epidural collection. There is no prevertebral soft tissue swelling. Normal opacification of the cervical arterial and venous structures. The visualized portion of the skull base is without significant abnormalities. The visualized paranasal sinuses are clear. The mastoid air cells and middle ear cavities are clear. Enamel erosion of the maxillary right 3rd molar with mild periapical lucencies. CT Upper Chest: The visualized lung apices and upper mediastinum are within normal limits. CT/CT soft tissue neck w IV con IMPRESSION: 1. Potential subcentimeter hypoattenuating nodule in the lower pole the left thyroid lobe. Although this lesion would not require follow-up by size criteria, if the patient is experiencing symptoms, this could be further characterized with thyroid ultrasound. 2. No additional focal lesion, collection, pathologically enlarged lymphadenopathy, or abnormal enhancement within the soft tissues of the neck. 3. Moderate odontogenic disease of the maxillary right 3rd molar.
[2023-02-25 17:10] VITALS: BP 148/76; PULSE 102; RESP 16; TEMP 36.6; O2SAT 94; BMI 35.5
--- NOTE | 2023-02-25 17:13 | ED.GENADULT ---
HPI - General Adult General Chief complaint: General Medical Stated complaint: Lump in throat sent By Time Seen by Provider: 02/25/23 20:17 Source: patient Mode of arrival: ambulatory Limitations: no limitations History of Present Illness HPI narrative: Patient been having the feeling of lump in his throat for last 1 month has taken 2 courses of steroids and antibiotics workup is negative so far has seen the doctors in urgent care who told him to go to the hospital if pain get worse patient feels that has some muffled voice feels very anxious has ENT appointment next week but came to the ER for further evaluation as he cannot sleep pain increases on eating any food no fever no chills Related Data Home Medications Medication Instructions Recorded Confirmed Bacillus coagulans 250 million 1 cell PO DAILY 07/09/20 01/21/23 cell chewable tablet (Digestive Advantage Probiotic Gummy) milk thistle 150 mg capsule 300 mg PO DAILY 06/23/21 01/21/23 chlorhexidine gluconate 0.12 % 15 ml PO BID 07/27/22 01/21/23 mouthwash melatonin 5 mg capsule 20 mg PO .nightly 07/27/22 01/21/23 Previous Rx's Medication Instructions Recorded cholecalciferol (vitamin D3) 250 250 mcg PO QWEEK #30 caps 10/07/21 mcg (10,000 unit) capsule empagliflozin 10 mg tablet 10 mg PO DAILY #90 tabs 06/21/22 (Jardiance) pantoprazole 40 mg tablet,delayed 40 mg PO DAILY #90 tabs 07/01/22 release simvastatin 10 mg tablet 10 mg PO BEDTIME #90 tabs 08/25/22 albuterol sulfate 90 mcg/actuation 2 puff inhalation QID PRN 01/14/23 aerosol inhaler shortness of breath or wheezing #8.5 grams benzonatate 100 mg capsule 100 mg PO TID PRN cough #30 caps 01/21/23 cetirizine 10 mg tablet (Zyrtec) 10 mg PO DAILY #14 tabs 01/21/23 fluticasone propionate 50 2 spray intranasal DAILY 14 days 01/21/23 mcg/actuation nasal #100 mL spray,suspension (Flonase Allergy Relief) prednisone 10 mg tablet 10 mg PO DAILY #12 tabs 01/21/23 lisinopril 2.5 mg tablet 2.5 mg PO DAILY 90 days #90 tabs 02/08/23 metformin 500 mg tablet 1,000 mg PO BID 90 days #360 tabs 02/08/23 sucralfate 1 gram tablet 1 g PO BEDTIME 90 days #90 tabs 02/17/23 Allergies Allergy/AdvReac Type Severity Reaction Status Date / Time apple [APPLE] Allergy Severe THROAT Verified 02/25/23 17:09 CLOSING AND HIVES animal dander [ANIMAL DANDER] Allergy Intermediate PUFFY EYES Verified 02/25/23 17:09 SNEEZING COUGHING bees Allergy Unknown Unknown Uncoded 01/21/23 16:55 Review of Systems Review of Systems: Yes all other systems are reviewed and are negative [facility] Past Medical History Medical History Bilateral hand pain Diabetes mellitus type 2, controlled, without complications Dizziness Fatty liver H/O acute pancreatitis Heart palpitations Hypercholesterolemia Obesity Obesity due to excess calories On beta kassie at home Pancreatitis Type 2 diabetes mellitus with hyperglycemia Vitamin D deficiency Surgical History H/O wisdom tooth extraction Family History Family History Father Alive and well Mother Alive and well Maternal Grandfather Diabetes Maternal Grandmother Diabetes Social History Social History Household Members: Significant Other Household Members Other:: roomates Housing: House Are you a primary manager home healthcare to a significant other at home: No Alcohol intake: never Patient Tobacco Use Status: Never used Tobacco e-Cigarette/Vaping Use: Never Used Second Hand Smoke Exposure: No Advance Directives: No Advance Directives Information Provided: No 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 Oriented X3. No acute distress. And she Eyes: PERRLA, No Nystagmus ENT: Pharynx normal. Oral Mucosa moist tonsils not enlarged Neck: Normal inspection. Neck supple. Non pathological cervical lymph nodes+ salivary glands normal thyroid not enlarged CVS: Normal heart rate and rhythm. Pulses normal. Respiratory: No respiratory distress. Equal air entry bilateral, no wheezing/rales/rhonchi Abdomen: Soft and nontender. Bowel sounds are present, no mass palpable, no CVA tenderness Skin: Skin warm and dry. Normal skin color. Normal skin turgor. Extremities: No lower extremity edema. No calf tenderness Neuro: Oriented X 3. No motor deficit. Course Course Course Narrative: 27-year-old male with past medical history significant for diabetes, fatty liver presents for evaluation of left neck swelling. Patient reports that his symptoms started about 1 month ago. He has completed 2 courses of antibiotics and steroids without any improvement. He never tested positive for any infectious process and had a negative strep test as recently as 2 days ago. On exam his retropharynx and airway appears widely patent. He does have positive lymphadenopathy in the left anterior cervical chain. Plan for labs and CT soft tissue of the neck. Medications Administered Discontinued Medications Generic Name Dose Route Start Last Admin Trade Name Freq PRN Reason Stop Dose Admin Iohexol 100 ml 02/25/23 20:32 02/25/23 20:32 Iohexol 350 Mg/Ml 100 Ml Infus..Btl IV 02/25/23 20:33 65 ml ONCE ONE Administration Medical Decision Making Lab Data [facility] Lab Attestation statement: I reviewed the patient's lab results. 02/25/23 17:27 02/25/23 17:27 Labs: Lab Results 02/25/23 02/25/23 02/25/23 Range/Units 17:27 17:27 17:27 WBC 12.2 H (4.8-10.8) X10*3/uL RBC 5.66 (4.60-5.80) X10*6/uL Hgb 16.4 (14.0-18.0) g/dl Hct 46.7 (42.0-52.0) % MCV 82.5 (80.0-98.0) fL MCH 29.0 (27.0-33.0) pg MCHC 35.1 (31.0-36.0) g/dl RDW 12.6 (11.0-16.0) % Plt Count 263 (160-400) X10*3/uL MPV 9.8 (9.4-12.4) fL Immature Gran % (Auto) 1.2 H (0.0-0.4) % Neut % (Auto) 89.2 H (45-73) % Lymph % (Auto) 8.6 L (20-40) % [place] % (Auto) 0.8 L (2-11) % Eos % (Auto) 0.0 (0-4) % Baso % (Auto) 0.2 (0-2) % Lymph # (Auto) 1.1 L (1.2-4.9) X10*3/uL [place] # (Auto) 0.1 (0.1-1.2) X10*3/uL Eos # (Auto) 0.0 (0.0-0.4) X10*3/uL Baso # (Auto) 0.0 (0.0-0.2) X10*3/uL Abs Immat Gran (auto) 0.14 H (0.00-0.03) X10*3/uL Absolute Neuts (auto) 10.8 H (2.0-8.3) x10*3/uL Absolute Nucleated RBC 0.000 (0.0-0.012) X10*3/uL Nucleated RBC % (auto) 0.0 (0.0-0.2) /100WBC Sodium 139 (135-145) mmol/L Potassium 4.4 (3.3-5.1) mmol/L Chloride 106 (96-108) mmol/L Carbon Dioxide 22 (22-29) mmol/L Anion Gap 15 (12-20) BUN 17 H (9-16) mg/dL Creatinine 1.01 (0.5-1.4) mg/dL Estim Creat Clear Calc 108.5 Estimated GFR > 60 Random Glucose 218 H (60-115) mg/dL Calcium 10.1 (8.4-10.2) mg/dL Total Bilirubin 0.8 (0.0-1.0) mg/dL AST 20 (5-37) U/L ALT 36 (0-40) U/L Alkaline Phosphatase 91 (39-117) U/L Total Protein 7.4 (6.5-8.0) g/dL Albumin 4.8 (3.5-5.0) g/dL Lipase 14 (8-78) U/L TSH 0.71 0.70 (0.32-4.0) uIU/mL Radiology Impression Discussion of test interpretation with radiology: I have reviewed the radiologist's reading. Radiologist Impression: CT/CT soft tissue neck w IV con IMPRESSION: 1.? Potential subcentimeter hypoattenuating nodule in the lower pole the left thyroid lobe. Although this lesion would not require follow-up by size criteria, if the patient is experiencing symptoms, this could be further characterized with thyroid ultrasound. 2.? No additional focal lesion, collection, pathologically enlarged lymphadenopathy, or abnormal enhancement within the soft tissues of the neck. 3.? Moderate odontogenic disease of the maxillary right 3rd mol Discharge Plan Discharge Clinical Impression: Thyroid nodule Patient Disposition: Home, Self-Care Instructions: Thyroid Nodules (ED) Additional Instructions: You have a small thyroid nodule on the left side which is likely benign Follow-up with the PCP/ENT for further evaluation Prescriptions: No Action cholecalciferol (vitamin D3) 250 mcg (10,000 unit) capsule 250 mcg PO QWEEK Qty: 30 0RF Jardiance 10 mg tablet 10 mg PO DAILY Qty: 90 3RF pantoprazole 40 mg tablet,delayed release (DR/EC) 40 mg PO DAILY Qty: 90 2RF Rx Instructions: take one tablet half an hour before breakfast simvastatin 10 mg tablet 10 mg PO BEDTIME Qty: 90 2RF albuterol sulfate 90 mcg/actuation HFA aerosol inhaler 2 puff inhalation QID PRN (Reason: shortness of breath or wheezing) Qty: 8.5 3RF lisinopril 2.5 mg tablet 2.5 mg PO DAILY 90 Days Qty: 90 3RF metformin 500 mg tablet 1,000 mg PO BID 90 Days Qty: 360 3RF sucralfate 1 gram tablet 1 g PO BEDTIME 90 Days Qty: 90 3RF Digestive Advantage Prob Gummy 250 million cell tablet,chewable 1 cell PO DAILY melatonin 5 mg capsule 20 mg PO .nightly fluticasone propionate [Flonase Allergy Relief] 50 mcg/actuation spray,suspension 2 spray intranasal DAILY 14 Days Qty: 100 0RF Rx Instructions: administer into each nostril benzonatate 100 mg capsule 100 mg PO TID PRN (Reason: cough) Qty: 30 0RF cetirizine [Zyrtec] 10 mg tablet 10 mg PO DAILY Qty: 14 0RF prednisone 10 mg tablet 10 mg PO DAILY Qty: 12 0RF Rx Instructions: Take 3 tablets for 2 days then, Take 2 tablets 2 days then, Take 1 tablet 2 days and stop milk thistle 150 mg capsule 300 mg PO DAILY Rx Instructions: give with meal/snack chlorhexidine gluconate 0.12 % mouthwash 15 ml PO BID
[2023-02-25 17:31] LABS: MANUAL DIFF FLAG NO
[2023-02-25 17:33] LABS: Basophils Percent Auto 0.2 % (0-2); Hematocrit 46.7 % (42.0-52.0); Hemoglobin 16.4 g/dl (14.0-18.0); Imm Gran Abs Auto 0.14 X10*3/uL (0.00-0.03); Imm Gran Pct Auto 1.2 % (0.0-0.4); Lymphocytes Absolute Auto 1.1 X10*3/uL (1.2-4.9); Lymphocytes Percent Auto 8.6 % (20-40); Mean Corpuscular HGB Conc 35.1 g/dl (31.0-36.0); Mean Corpuscular Volume 82.5 fL (80.0-98.0); Mean Platelet Volume 9.8 fL (9.4-12.4); Monocytes Absolute Auto 0.1 X10*3/uL (0.1-1.2); Monocytes Percent Auto 0.8 % (2-11); Neutrophils Absolute Auto 10.8 x10*3/uL (2.0-8.3); Neutrophils Percent Auto 89.2 % (45-73); Platelet Count 263 X10*3/uL (160-400); Red Blood Count 5.66 X10*6/uL (4.60-5.80); Red Cell Distribution Width 12.6 % (11.0-16.0); White Blood Count 12.2 X10*3/uL (4.8-10.8)
[2023-02-25 18:02] LABS: Alanine Aminotransferase 36 U/L (0-40); Albumin Level 4.8 g/dL (3.5-5.0); Alkaline Phosphatase 91 U/L (39-117); Anion Gap 15 (12-20); Aspartate Amino Transferase 20 U/L (5-37); Bilirubin Total 0.8 mg/dL (0.0-1.0); Blood Urea Nitrogen 17 mg/dL (9-16); Calcium 10.1 mg/dL (8.4-10.2); Carbon Dioxide 22 mmol/L (22-29); Chloride 106 mmol/L (96-108); Creatinine Clr Calc Pharmacy 108.5; Estimated Glomerular Filt Rate > 60; Glucose Random 218 mg/dL (60-115); Lipase 14 U/L (8-78); Potassium 4.4 mmol/L (3.3-5.1); Sodium 139 mmol/L (135-145); Total Protein 7.4 g/dL (6.5-8.0)
[2023-02-25 18:17] LABS: Thyroid Stimulating Hormone 0.71 uIU/mL (0.32-4.0)
[2023-02-25 20:17] VITALS: BP 149/63; PULSE 109; RESP 18; TEMP 36.8; O2SAT 99
[2023-02-25] MEDS: iohexoL 350 MG/ML 100 ML INFUS..BTL IV (20:32)
== END 2023-02-25 22:18 | disposition home or self-care (01) ==
PROVIDERS: Physician Assistant; Emergency Provider Internal Medicine; PCP Internal Medicine
DX: E04.1 Nontoxic single thyroid nodule (principal); R07.0 Pain in throat; Z79.899 Other long term (current) drug therapy
CPT/HCPCS: 36415; 70491; 80053; 83690; 84443; 85025; 99282; 99284; Q9967

== ENCOUNTER 2023-04-26 12:23 | Outpatient (AMB) | payer OTHER, SELFPAY ==
--- NOTE | 2023-04-26 12:30 | MHC.OFFVIS ---
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 Patient reports that he has had pain in the right shoulder for about a month now. He woke up with significantly diminished ROM and pain with movements. He cannot do above the head or behind that back motions. Denies numbness and tingling. Allergies apple [APPLE] Allergy (Severe, Verified 03/12/23 12:38) THROAT CLOSING AND HIVES animal dander [ANIMAL DANDER] Allergy (Intermediate, Verified 03/12/23 12:38) PUFFY EYES SNEEZING COUGHING bees Allergy (Unknown, Uncoded 03/12/23 12:38) Unknown HPI [employer]UFFER-Bicipital tendinitis, left shoulder HPI Details Jean-Pierre is a 37 year old Diabetic man who presents with complaints of left shoulder pain. He has pain with daily activity, worse with overhead or behind back activity. He says he has severely limited ROM of his shoulder. He says he woke up with pain and restricted ROM ~1 month ago, and his symptoms have not improved. [facility] Medical History (Updated 04/26/23 @ 12:43 by Ace Aguirre) Asthma Bilateral hand pain Diabetes mellitus type 2, controlled, without complications Dizziness Fatty liver H/O acute pancreatitis Heart palpitations Hypercholesterolemia Obesity Obesity due to excess calories On beta kassie at home Pancreatitis Type 2 diabetes mellitus with hyperglycemia Vitamin D deficiency Surgical History H/O wisdom tooth extraction Family History Father Alive and well Mother Alive and well Maternal Grandfather Diabetes Maternal Grandmother Diabetes Social History Household Members: Significant Other Household Members Other:: roomates Housing: House Are you a primary health care specialist to a significant other at home: No Alcohol intake: never Patient Tobacco Use Status: Never used Tobacco e-Cigarette/Vaping Use: Never Used Second Hand Smoke Exposure: No 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) Cognitive needs: No Hearing needs: No Vision needs: No Review of Systems Const All systems reviewed & are unremarkable except as noted in HPI and below Physical Exam Vital Signs: BMI result Body Mass Index 36.5 Const General: no acute distress, alert and awake Orientation/consciousness: patient oriented x3 HEENT Head: Yes normocephalic and Yes atraumatic Eyes EOM: EOMs intact bilaterally Resp Effort & Inspection: normal respiratory effort and able to speak in complete sentences Cardio Jugular venous distension: no JVD Skin General skin exam: turgor normal Rashes: no rashes Neuro General: patient oriented x3 Extrem Other: Left Shoulder: 30 degrees ER with pain, compared to 60 degrees without pain on the contralateral side Overhead motion similarly limited Psych Appearance: grossly normal Affect: normal affect Attitude: cooperative Assessment & Plan Assessment & Plan (1) Adhesive capsulitis of left shoulder: Code(s): M75.02 - Adhesive capsulitis of left shoulder Plan: This is a 37 year old man with left shoulder adhesive capsulitis and ~1 month of pain. He has pain and restricted ROM, unable to reach above head or behind back. He has restricted ER and is unable to use his shoulder for some activities. His pain has not changed in the last month and occurs mostly with specific motions. Overasll the pain and ROM restrictions are mild. I recommend he work on gentle ROM & alexandre-scapular strengthening exercises at home, being mindful not to push through pain. I demonstrated some exercises in clinic, and he says he is aware of several PT exercises he can perform. He can follow up prn, if his symptoms persist or worsen we can discuss formal PT or injections. 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
[2023-04-26 12:31] VITALS: BMI 36.5
== END 2023-04-26 12:47 | disposition home or self-care (01) ==
PROVIDERS: PCP Internal Medicine; Visit Provider Orthopaedic Surgery
DX: M75.02 Adhesive capsulitis of left shoulder (principal); M75.22 Bicipital tendinitis, left shoulder
CPT/HCPCS: 99203

== ENCOUNTER → 2023-04-26 12:58 | Outpatient (REF) | payer OTHER, SELFPAY | LOC: HO.SL 12:58 | PROVIDERS: PCP Internal Medicine; Visit Provider Internal Medicine | DX: M75.02 Adhesive capsulitis of left shoulder (principal); G47.10 Hypersomnia, unspecified; G47.33 Obstructive sleep apnea (adult) (pediatric); E11.9 Type 2 diabetes mellitus without complications | CPT/HCPCS: 95806; 99202 ==

== ENCOUNTER → 2023-04-26 13:07 | Outpatient (BNV) | payer OTHER, SELFPAY | PROVIDERS: PCP Internal Medicine; Visit Provider Internal Medicine | DX: G47.33 Obstructive sleep apnea (adult) (pediatric) (principal) | CPT/HCPCS: 95806 ==

== ENCOUNTER 2023-06-24 15:11 | Outpatient (AMB) | payer OTHER, SELFPAY ==
[2023-06-24 15:14] VITALS: BP 132/84; PULSE 72; O2SAT 99; BMI 34.7
--- NOTE | 2023-06-24 15:14 | MHC.PC.OV ---
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: Not Required per policy Accompanied by: Self / Same As Patient Allergies apple [APPLE] Allergy (Severe, Verified 06/24/23 15:14) THROAT CLOSING AND HIVES animal dander [ANIMAL DANDER] Allergy (Intermediate, Verified 06/24/23 15:14) PUFFY EYES SNEEZING COUGHING bees Allergy (Unknown, Uncoded 06/24/23 15:14) Unknown Medication List - Last Reconciled 06/24/23 by Zafar Geroges MD albuterol sulfate 90 mcg/actuation 2 puffs inhalation QID PRN Bacillus coagulans (Digestive Advantage Probiotic Gummy) 1 cell PO DAILY blood-glucose meter,continuous (Dexcom G6 Optical Instrument Assembly Supervisor) As directed check BS TID blood-glucose sensor (Dexcom G6 Sensor device) As directed check the BS TID blood-glucose transmitter (Dexcom G6 Transmitter device) As directed check the BS TID chlorhexidine gluconate 0.12% 15 mL PO BID cholecalciferol (vitamin D3) 250 mcg PO QWEEK empagliflozin 25 mg PO DAILY lisinopril 2.5 mg PO DAILY 90 days melatonin 20 mg PO .nightly metformin 1,000 mg (2 x 500 mg) PO BID 90 days pantoprazole 40 mg PO DAILY simvastatin 10 mg PO BEDTIME sucralfate 1 g PO BEDTIME 90 days Tobacco use date assessed: 01/14/23 Dental Screening Dental Screen Date: 06/24/23 Did you have a dental visit in the last 12 months?: Yes Did you have a dental problem in the last 6 months where you did not have access to dental care?: No Was dental information given to patient?: Patient has dentist HPI 3 Month F/Up HPI Details 37-year-old obese male with uncontrolled diabetes mellitus hypercholesterolemia hypersomnia GERD generalized anxiety disorder and the last time seen in February having left shoulder pain.. Patient is here for follow-up. Patient had a sleep study done in 04/27/2023 showing a very mild obstructive sleep apnea and conservative measures advised with weight reduction position therapy. Patient was seen by the Ortho for the left shoulder and also mentioned about the problem on the right shoulder advised therapy patient is here for follow-up through Telehealth patient complains of the left shoulder pain still was advised by the physical therapist to get an x-ray of the shoulder. Surprised that the Ortho did not even recommend that. Discussed with the patient the treatment does not change much. Has been recommended also to have Voltaren gel which is safe. As for the diabetes A1c still elevated did lose some weight which is great advised increase in Jardiance. Cholesterol test requested not done yet reminded about the blood work discussed about vaccination [facility] Medical History (Updated 06/24/23 @ 16:06 by Zafar Georges MD) Hypersomnia On beta kassie at home Asthma H/O acute pancreatitis Heart palpitations Obesity due to excess calories Diabetes mellitus type 2, controlled, without complications Dizziness Bilateral hand pain Fatty liver Vitamin D deficiency Obesity Pancreatitis Hypercholesterolemia Type 2 diabetes mellitus with hyperglycemia Surgical History H/O wisdom tooth extraction Family History Father Alive and well Mother Alive and well Maternal Grandfather Diabetes Maternal Grandmother Diabetes Social History Household Members: Significant Other Household Members Other:: roomates Housing: House Are you a primary health care consultant to a significant other at home: No Alcohol intake: never Patient Tobacco Use Status: Never used Tobacco e-Cigarette/Vaping Use: Never Used Second Hand Smoke Exposure: No 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 1. Little interest or pleasure in doing things: not at all 2. Feeling down, depressed, or hopeless: not at all 3. Trouble falling or staying asleep, or sleeping too much: not at all 4. Feeling tired or having little energy: not at all 5. Poor appetite or overeating: not at all 6. Feeling bad about yourself - or that you are a failure or have let yourself or your family down: not at all 7. Trouble concentrating on things, such as reading the newspaper or watching television: not at all 8. Moving or speaking so slowly that other people could have noticed. Or the opposite - being so fidgety or restless that you have been moving around a lot more than usual: not at all 9. Thoughts that you would be better off or of hurting yourself in some way: not at all Total score: 0 Depression Screening Interpretation: Negative Depression Screening Done: Yes Source: Developed by Drs. Travon Ward, Apollo Smith and colleagues, with an educational prerna from [employer]. Thrive Questionnaire Date Thrive assessed: 03/12/23 AUDIT C Alcohol Use Questionnaire (AUDIT-C) 1. How often do you have a drink containing alcohol?: Never 2. How many drinks containing alcohol do you have on a typical day when you are drinking?: 1 or 2 3. How often do you have six or more drinks on one occasion?: Never Total Score: 0 MARIO-7 AMB Questionnaire MARIO-7 Date MARIO - 7 assessed: 03/12/23 Source: Developed by Drs. Travon Ward, Apollo Smith and colleagues, with an educational prerna from [employer]. Physical exam (Primary Care) Vital Signs: Last Vital Signs Pulse 72 06/24/23 15:14 BP 132/84 06/24/23 15:14 Pulse Ox 99 06/24/23 15:14 Oxygen Delivery Method Room Air 06/24/23 15:14 BMI result Body Mass Index 34.7 Tobacco/Smoking Status: Tobacco use Status Tobacco use date assessed 01/14/23 06/24/23 15:23 Patient Tobacco Use Status Never used Tobacco 06/24/23 15:23 e-Cigarette/Vaping Use Never Used 06/24/23 15:23 PHQ-9: PHQ-9 Score PHQ-9: Total score 0 06/24/23 15:27 Depression Screening Interpretation: Negative Thrive Assessment: Date of Thrive Assessment Date Thrive assessed 03/12/23 06/24/23 15:23 Results AMB Hemoglobin A1c AMB Hemoglobin A1c 7.1 % Last Edit by KEARA Aguila on 06/24/23 15:29 Telehealth Telehealth Location of provider rendering services: practice address Location of patient: address on file Patient Identification confirmed using: Name, : Yes Telehealth method: video Patient verbally consented to treatment: Yes Patient verbally consented to billing insurance company: Yes Patient informed of any privacy concerns related to visit: Yes Minutes spent on Phone/Video with Pt.: 25 Results Reviewed Results Reviewed: Laboratory Last Values Hgb A1c (Clinic) 7.1 % (4.0-6.0) H 06/24/23 15:28 Assessment and Plan Assessment & Plan (1) Type 2 diabetes mellitus with hyperglycemia: Code(s): E11.65 - Type 2 diabetes mellitus with hyperglycemia Qualifiers: Diabetes mellitus regional intermodal truck driver insulin use: without regional intermodal truck driver use Qualified Code(s): E11.65 - Type 2 diabetes mellitus with hyperglycemia Plan: Decrease the amount of carbohydrate intake, pasta, bread, rice and potatoes are all sugar and that is aside from all the sweet stuff, remember that fruits are good but they are Sweet also. Hemoglobin A1c goal of less than 6.5 patient is presently on Jardiance 10 mg once a day metformin a 1000 mg twice a day (2) Adhesive capsulitis of left shoulder: Code(s): M75.02 - Adhesive capsulitis of left shoulder Plan: Patient has seen ortho and has been advised physical therapy/exercises (3) Mild obstructive sleep apnea: Comment: April 2023 conservative Code(s): G47.33 - Obstructive sleep apnea (adult) (pediatric) Plan: Sleep study done mild position therapy and weight loss (4) GERD (gastroesophageal reflux disease): Code(s): K21.9 - Gastro-esophageal reflux disease without esophagitis Qualifiers: Esophagitis presence: with esophagitis Esophagitis bleeding: without hemorrhage Qualified Code(s): K21.00 - Gastro-esophageal reflux disease with esophagitis, without bleeding Plan: Avoid the foods that causes that usually spicy foods, tomato products, juices, coffee, soda and foods that your sensitive to. After eating do not lie down, allow 3-4 hours before in lie down. And keep the head of bed above 30 degrees to avoid the acid from going up. (5) Obesity due to excess calories: Code(s): E66.09 - Other obesity due to excess calories Qualifiers: Obesity classification: adult class 2 (BMI 35 - 39.9) Serious obesity comorbidity presence: with serious comorbidity Body mass index: BMI 36.0-36.9 Qualified Code(s): E66.01 - Morbid (severe) obesity due to excess calories; Z68.36 - Body mass index [BMI] 36.0-36.9, adult Plan: Diet and exercise (6) Hypercholesterolemia: Code(s): E78.00 - Pure hypercholesterolemia, unspecified Plan: Avoid fried foods, chicken skin, eggs, butter margarine, pastries and meat. Be it pork or beef they have a lot of cholesterol LDL goal of less than 100 and triglyceride of less than 150. Reminded about the blood work requested Orders: Orders XR shoulder LT min 2V Today M75.02 - Adhesive capsulitis of left shoulder AMB Hemoglobin A1c Today E11.65 - Type 2 diabetes mellitus with hyperglycemia Medications: Changed From empagliflozin (Jardiance) 10 mg PO DAILY 90 tabs 3RF E11.65 - Type 2 diabetes mellitus with hyperglycemia, E78.00 - Pure hypercholesterolemia, unspecified To empagliflozin 25 mg PO DAILY 30 tabs 5RF E11.65 - Type 2 diabetes mellitus with hyperglycemia, E78.00 - Pure hypercholesterolemia, unspecified Coding Level of Care Code Tele Est Pt Level 4 (64223) Diagnoses Type 2 diabetes mellitus with hyperglycemia, without long-term current use of insulin E11.65 Diabetes mellitus intermediate insulin use: without regional intermodal truck driver use Adhesive capsulitis of left shoulder M75.02 Mild obstructive sleep apnea G47.33 Gastroesophageal reflux disease with esophagitis without hemorrhage K21.00 Esophagitis presence: with esophagitis Esophagitis bleeding: without hemorrhage Class 2 severe obesity due to excess calories with serious comorbidity and body mass index (BMI) of 36.0 to 36.9 in adult E66.01; Z68.36 Obesity classification: adult class 2 (BMI 35 - 39.9) Serious obesity comorbidity presence: with serious comorbidity Body mass index: BMI 36.0-36.9 Hypercholesterolemia E78.00
== END 2023-06-24 16:53 | disposition home or self-care (01) ==
PROVIDERS: PCP Internal Medicine; Visit Provider Internal Medicine
DX: E11.65 Type 2 diabetes mellitus with hyperglycemia (principal); K21.00 Gastro-esophageal reflux disease with esophagitis, without bleeding; E66.01 Morbid (severe) obesity due to excess calories; Z68.36 Body mass index [BMI] 36.0-36.9, adult; M75.02 Adhesive capsulitis of left shoulder; G47.33 Obstructive sleep apnea (adult) (pediatric); E78.00 Pure hypercholesterolemia, unspecified
CPT/HCPCS: 83036; 99214

== ENCOUNTER 2023-08-31 11:29 | Outpatient (REF) | payer OTHER, SELFPAY ==
[2023-08-31 11:42] LABS: MANUAL DIFF FLAG NO
[2023-08-31 12:43] LABS: Basophils Absolute Auto 0.1 X10*3/uL (0.0-0.2); Basophils Percent Auto 0.5 % (0-2); Eosinophils Absolute Auto 0.1 X10*3/uL (0.0-0.4); Eosinophils Percent Auto 1.3 % (0-4); Hematocrit 45.3 % (42.0-52.0); Hemoglobin 15.4 g/dl (14.0-18.0); Imm Gran Abs Auto 0.19 X10*3/uL (0.00-0.03); Lymphocytes Absolute Auto 2.2 X10*3/uL (1.2-4.9); Lymphocytes Percent Auto 22.6 % (20-40); Mean Corpuscular Hemoglobin 28.9 pg (27.0-33.0); Mean Corpuscular Volume 85.2 fL (80.0-98.0); Mean Platelet Volume 10.1 fL (9.4-12.4); Monocytes Absolute Auto 0.6 X10*3/uL (0.1-1.2); Monocytes Percent Auto 6.6 % (2-11); Neutrophils Absolute Auto 6.5 x10*3/uL (2.0-8.3); Platelet Count 229 X10*3/uL (160-400); Red Blood Count 5.32 X10*6/uL (4.60-5.80); Red Cell Distribution Width 12.7 % (11.0-16.0); White Blood Count 9.7 X10*3/uL (4.8-10.8)
[2023-08-31 12:50] LABS: Estimated Average Glucose 146 mg/dL; Hemoglobin A1c % 6.7 % (<6.0)
[2023-08-31 13:13] LABS: Alanine Aminotransferase 30 U/L (0-40); Albumin Level 4.5 g/dL (3.5-5.0); Alkaline Phosphatase 72 U/L (39-117); Anion Gap 11 (12-20); Aspartate Amino Transferase 15 U/L (5-37); Bilirubin Total 0.5 mg/dL (0.0-1.0); Blood Urea Nitrogen 18 mg/dL (9-16); Calcium 9.5 mg/dL (8.4-10.2); Carbon Dioxide 27 mmol/L (22-29); Chloride 106 mmol/L (96-108); Cholesterol 160 mg/dL (<200); Estimated Glomerular Filt Rate > 60; Glucose Random 163 mg/dL (60-115); HDL Cholesterol 43 mg/dL (>40); LDL Cholesterol Calculated 98 mg/dL (<100); Magnesium 2.2 mg/dL (1.6-2.6); Phosphorus 2.9 mg/dL (2.7-4.5); Potassium 4.3 mmol/L (3.3-5.1); Sodium 140 mmol/L (135-145); Total Protein 7.1 g/dL (6.5-8.0); Triglycerides 98 mg/dL (<150)
[2023-08-31 13:32] LABS: Free T4 (Free Thyroxine) 1.06 ng/dL (0.71-1.85); Thyroid Stimulating Hormone 1.89 uIU/mL (0.32-4.0)
[2023-08-31 13:39] LABS: Creatinine Urine 55.83 mg/dL; Microalbumin Urine < 5.0 mg/L
[2023-09-01 10:19] LABS: Follicle Stimulating Hormone 8.8 mIU/mL (1.4-12.8); Lutenizing Hormone 4.8 mIU/mL (1.5-9.3); Prolactin 6.7 ng/mL (2.0-18.0)
[2023-09-04 12:29] LABS: Testosterone, Total 258 ng/dL (250-1100)
== END 2023-08-31 11:30 | disposition home or self-care (01) ==
LOC: HO.LAB 11:29
PROVIDERS: PCP Internal Medicine; Visit Provider Internal Medicine
DX: E11.65 Type 2 diabetes mellitus with hyperglycemia (principal); E78.00 Pure hypercholesterolemia, unspecified; K21.00 Gastro-esophageal reflux disease with esophagitis, without bleeding
CPT/HCPCS: 36415; 80053; 80061; 82043; 82570; 83001; 83002; 83036; 83735; 84100; 84146; 84403; 84439; 84443; 85025

== ENCOUNTER 2023-08-31 12:23 | Outpatient (AMB) | payer OTHER, SELFPAY ==
--- NOTE | 2023-08-31 12:35 | A.OFFPC_ITS ---
Vital Signs 08/31/23 12:36 Height 5 ft 6 in Weight 222 lb 4 oz BMI 35.9 BP 120/70 Blood Pressure Location Lt brachial Position Sitting Pulse 69 Pulse Source Pulse Oximeter Pulse Oximetry (%) 98 Oxygen Delivery Method Room Air Intake Visit Reasons: PE Intake Note: Patient is here today for a physical. 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 Roof Truss Detailer: Present Accompanied by: Spouse Allergies apple [APPLE] Allergy (Severe, Verified 08/31/23 12:36) THROAT CLOSING AND HIVES animal dander [ANIMAL DANDER] Allergy (Intermediate, Verified 08/31/23 12:36) PUFFY EYES SNEEZING COUGHING bees Allergy (Unknown, Uncoded 08/31/23 12:36) Unknown Medication List - Last Reconciled 08/31/23 by Zafar Georges MD albuterol sulfate 90 mcg/actuation 2 puffs inhalation QID PRN Bacillus coagulans (Digestive Advantage Probiotic Gummy) 1 cell PO DAILY blood-glucose meter,continuous (Dexcom G6 Land Surveyor) As directed check BS TID blood-glucose sensor (Dexcom G6 Sensor device) As directed check the BS TID blood-glucose transmitter (Dexcom G6 Transmitter device) As directed check the BS TID chlorhexidine gluconate 0.12% 15 mL PO BID cholecalciferol (vitamin D3) 250 mcg PO QWEEK empagliflozin 25 mg PO DAILY lisinopril 2.5 mg PO DAILY 90 days melatonin 20 mg PO .nightly metformin 1,000 mg (2 x 500 mg) PO BID 90 days pantoprazole 40 mg PO DAILY simvastatin 10 mg PO BEDTIME sucralfate 1 g PO BEDTIME 90 days Tobacco use date assessed: 08/31/23 Dental Screening Dental Screen Date: 08/31/23 Did you have a dental visit in the last 12 months?: Yes Did you have a dental problem in the last 6 months where you did not have access to dental care?: No Was dental information given to patient?: Patient has dentist HPI PE HPI Details 38-year-old obese male with uncontrolled diabetes mellitus mild obstructive sleep apnea GERD hypercholesterolemia. Patient was last seen through Telehealth the June 2023. Review of the notes was seen by the Orthopedics for the left shoulder pain and was advised physical therapy. ENT problem ? was sent for [facility] rehab- will have barium swallow. states something on the neck that pops out and goes back in [facility] Medical History (Updated 10/05/23 @ 16:06 by Zafar Georges MD) Hypersomnia On beta kassie at home Asthma H/O acute pancreatitis Heart palpitations Obesity due to excess calories Diabetes mellitus type 2, controlled, without complications Dizziness Bilateral hand pain Fatty liver Vitamin D deficiency Obesity Pancreatitis Hypercholesterolemia Type 2 diabetes mellitus with hyperglycemia Surgical History H/O wisdom tooth extraction Family History (Updated 08/31/23 @ 12:35 by KEARA Diaz) Father Alive and well Mother Alive and well Maternal Grandfather Diabetes Maternal Grandmother Diabetes Social History Household Members: Significant Other Household Members Other:: roomates Housing: House Are you a primary home health care social worker to a significant other at home: No Alcohol intake: never Patient Tobacco Use Status: Never used Tobacco e-Cigarette/Vaping Use: Never Used Second Hand Smoke Exposure: No service: No 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 Traovn Ward, Nissa Saavedra, Apollo Perry and colleagues, with an educational prerna from [employer]. Review of Systems Const Denies poor appetite and Denies weakness Eyes Denies no additional complaints ENT Reports Normal hearing present, Denies dizziness, Denies nasal congestion, Denies tinnitus and Denies sore throat Card Denies chest pain, Denies syncope, Denies rapid heart rate and Denies dyspnea Resp Denies cough and Denies dyspnea GI Denies change in stool character, Reports constipation, Denies diarrhea, Denies nausea and Denies vomiting Denies dysuria and Denies urinary frequency Neuro Reports Normal hearing present, Denies confusion, Denies dizziness, Denies syncope and Denies weakness Psych Denies confusion Physical exam (Primary Care) Vital Signs: Last Vital Signs Pulse 69 08/31/23 12:36 BP 120/70 08/31/23 12:36 Pulse Ox 98 08/31/23 12:36 Oxygen Delivery Method Room Air 08/31/23 12:36 BMI result Body Mass Index 35.9 Tobacco/Smoking Status: Tobacco use Status Tobacco use date assessed 08/31/23 08/31/23 12:42 Patient Tobacco Use Status Never used Tobacco 08/31/23 12:42 e-Cigarette/Vaping Use Never Used 08/31/23 12:42 Thrive Assessment: Date of Thrive Assessment Date Thrive assessed 03/12/23 08/31/23 12:42 Const General: No confusion Orientation/consciousness: No confusion HENMT Head: Yes normocephalic Ears: external ears normal and TM's normal bilaterally Face and sinus: Yes normal facial exam Mouth: moist mucous membranes Throat: Yes tonsils normal Eyes Conjunctivae: conjunctivae normal Pupils: Equal, round and reactive pupils present and Pupil accommodation reflex normal Direct Ophthalmoscopy: normal light reflex Neck Neck: No lymphadenopathy Thyroid: Thyroid normal Chest Chest palpation & inspection: normal inspection of the chest Resp Effort & Inspection: normal respiratory effort and no audible wheezes Auscultation: clear to auscultation bilaterally, no crackles, no wheezes and lung sounds not diminished Cardio Rate: regular rate Rhythm: regular rhythm Peripheral pulses: radial pulses present and dorsalis pedis present GI Palpation (GI): no masses Auscultation: normal bowel sounds and normoactive bowel sounds Rectal Exam - Male: Yes deferred Skin General skin exam: no rashes or lesions noted Rashes: no rashes Neuro General: No confusion Cranial nerves: Yes Equal, round and reactive pupils present and Yes Normal hearing present Cognition (Neuro): normal cognition Gait exam (Neuro): Normal gait present Motor exam (neuro): 5/5 motor strength present throughout Deep tendon reflexes (DTR's): Right brachioradialis reflex intensity grade: 2+, Left brachioradialis reflex intensity grade: 2+, Right patellar reflex intensity grade: 2+ and Left patellar reflex intensity grade: 2+ Extrem General: No edema Assessment and Plan Assessment & Plan (1) Annual physical exam: Code(s): Z00.00 - Encounter for general adult medical examination without abnormal findings (2) Type 2 diabetes mellitus with hyperglycemia: Code(s): E11.65 - Type 2 diabetes mellitus with hyperglycemia Qualifiers: Diabetes mellitus correction insulin use: without correction use Qualified Code(s): E11.65 - Type 2 diabetes mellitus with hyperglycemia Plan: Decrease the amount of carbohydrate intake, pasta, bread, rice and potatoes are all sugar and that is aside from all the sweet stuff, remember that fruits are good but they are Sweet also. Hemoglobin A1c goal of less than 6.5 patient is on Jardiance 25 mg once a day metformin a 1000 mg twice a day (3) Hypercholesterolemia: Code(s): E78.00 - Pure hypercholesterolemia, unspecified Plan: Avoid fried foods, chicken skin, eggs, butter margarine, pastries and meat. Be it pork or beef they have a lot of cholesterol LDL goal of less than 100 and triglyceride of less than 150 patient is on simvastatin 10 mg (4) Obesity: Code(s): E66.9 - Obesity, unspecified Qualifiers: Obesity type: due to excess calories Obesity classification: adult class 2 (BMI 35 - 39.9) Serious obesity comorbidity presence: with serious comorbidity Body mass index: BMI 36.0-36.9 Qualified Code(s): E66.01 - Morbid (severe) obesity due to excess calories; Z68.36 - Body mass index [BMI] 36.0- 36.9, adult Plan: Diet and exercise (5) GERD (gastroesophageal reflux disease): Code(s): K21.9 - Gastro-esophageal reflux disease without esophagitis Qualifiers: Esophagitis presence: with esophagitis Esophagitis bleeding: without hemorrhage Qualified Code(s): K21.00 - Gastro-esophageal reflux disease with esophagitis, without bleeding Plan: Avoid the foods that causes that usually spicy foods, tomato products, juices, coffee, soda and foods that your sensitive to. After eating do not lie down, allow 3-4 hours before in lie down. And keep the head of bed above 30 degrees to avoid the acid from going up. Medications: Changed From pantoprazole take one tablet half an hour before breakfast 40 mg PO DAILY 90 tabs 3RF K21.9 - Gastro-esophageal reflux disease without esophagitis To pantoprazole 40 mg PO DAILY 90 tabs 3RF K21.9 - Gastro-esophageal reflux disease without esophagitis Coding Level of Care Code Est Pt Prev Care 40-64y(54731) Diagnoses Annual physical exam Z00.00 Type 2 diabetes mellitus with hyperglycemia, without long-term current use of insulin E11.65 Diabetes mellitus parts counterman insulin use: without parts counterman use Hypercholesterolemia E78.00 Class 2 severe obesity due to excess calories with serious comorbidity and body mass index (BMI) of 36.0 to 36.9 in adult E66.01; Z68.36 Obesity type: due to excess calories Obesity classification: adult class 2 (BMI 35 - 39.9) Serious obesity comorbidity presence: with serious comorbidity Body mass index: BMI 36.0-36.9 Gastroesophageal reflux disease with esophagitis without hemorrhage K21.00 Esophagitis presence: with esophagitis Esophagitis bleeding: without hemorrhage
[2023-08-31 12:36] VITALS: BP 120/70; PULSE 69; O2SAT 98; BMI 35.9
== END 2023-08-31 13:23 | disposition home or self-care (01) ==
PROVIDERS: Visit Provider Internal Medicine
DX: Z00.00 Encounter for general adult medical examination without abnormal findings (principal); E11.65 Type 2 diabetes mellitus with hyperglycemia; E66.01 Morbid (severe) obesity due to excess calories; Z68.36 Body mass index [BMI] 36.0-36.9, adult; E78.00 Pure hypercholesterolemia, unspecified; K21.00 Gastro-esophageal reflux disease with esophagitis, without bleeding
CPT/HCPCS: 99396

== ENCOUNTER 2023-12-14 13:25 | Outpatient (AMB) | payer OTHER, SELFPAY ==
[2023-12-14 13:26] VITALS: BP 126/68; PULSE 84; O2SAT 98; BMI 35.3
--- NOTE | 2023-12-14 13:26 | MHC.PC.OV ---
Vital Signs 12/14/23 13:26 Height 5 ft 6 in Weight 219 lb 0.4 oz BMI 35.3 BP 126/68 Blood Pressure Location Lt brachial Position Sitting Pulse 84 Pulse Source Pulse Oximeter Pulse Oximetry (%) 98 Oxygen Delivery Method Room Air Intake Visit Reasons: DM Intake Note: Patient is here to follow up on DM Academic Advisor Required: No Allergies apple [APPLE] Allergy (Severe, Verified 12/14/23 13:27) THROAT CLOSING AND HIVES animal dander [ANIMAL DANDER] Allergy (Intermediate, Verified 12/14/23 13:27) PUFFY EYES SNEEZING COUGHING bees Allergy (Unknown, Uncoded 12/14/23 13:27) Unknown Medication List - Last Reconciled 12/14/23 by Zafar Georges MD albuterol sulfate 90 mcg/actuation 2 puffs inhalation QID PRN Bacillus coagulans (Digestive Advantage Probiotic Gummy) 1 cell PO DAILY blood-glucose meter,continuous (Dexcom G6 Student Counselor) As directed check BS TID blood-glucose sensor (Dexcom G6 Sensor device) As directed check the BS TID blood-glucose transmitter (Dexcom G6 Transmitter device) As directed check the BS TID chlorhexidine gluconate 0.12% 15 mL PO BID cholecalciferol (vitamin D3) 250 mcg PO QWEEK empagliflozin 25 mg PO DAILY glipizide ER 2.5 mg PO DAILY lisinopril 2.5 mg PO DAILY 90 days melatonin 20 mg PO .nightly metformin 1,000 mg (2 x 500 mg) PO BID 90 days pantoprazole 40 mg PO DAILY simvastatin 10 mg PO BEDTIME sucralfate 1 g PO BEDTIME 90 days Tobacco use date assessed: 12/14/23 HPI DM HPI Details 38-year-old obese male with uncontrolled diabetes mellitus hypercholesterolemia GERD coming in for follow-up. Last seen in August 2023. [facility] Medical History (Updated 12/14/23 @ 13:57 by Zafar Georges MD) Bicipital tendinitis of left shoulder Adhesive capsulitis of left shoulder Cough Impaired concentration Upper back pain on left side Allergy Viral upper respiratory illness Chest pain Atypical chest pain Tick bite of abdominal wall Neck pain Bilateral hand pain Back pain Obesity Hypersomnia On beta kassie at home Asthma H/O acute pancreatitis Heart palpitations Obesity due to excess calories Dizziness Fatty liver Vitamin D deficiency Pancreatitis Hypercholesterolemia Type 2 diabetes mellitus with hyperglycemia Surgical History H/O wisdom tooth extraction Family History (Updated 08/31/23 @ 12:35 by KEARA Diaz) Father Alive and well Mother Alive and well Maternal Grandfather Diabetes Maternal Grandmother Diabetes Social History Household Members: Significant Other Household Members Other:: roomates Housing: House Are you a primary cattle care worker to a significant other at home: No Alcohol intake: never Patient Tobacco Use Status: Never used Tobacco e-Cigarette/Vaping Use: Never Used Second Hand Smoke Exposure: No service: No 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 1. Little interest or pleasure in doing things: not at all 2. Feeling down, depressed, or hopeless: not at all 3. Trouble falling or staying asleep, or sleeping too much: not at all 4. Feeling tired or having little energy: not at all 5. Poor appetite or overeating: not at all 6. Feeling bad about yourself - or that you are a failure or have let yourself or your family down: not at all 7. Trouble concentrating on things, such as reading the newspaper or watching television: not at all 8. Moving or speaking so slowly that other people could have noticed. Or the opposite - being so fidgety or restless that you have been moving around a lot more than usual: not at all 9. Thoughts that you would be better off or of hurting yourself in some way: not at all Total score: 0 Depression Screening Interpretation: Negative Depression Screening Done: Yes Source: Developed by Drs. Travon Ward, Nissa Saavedra, Apollo Perry and colleagues, with an educational prerna from [employer]. Thrive Questionnaire Date Thrive assessed: 12/14/23 I am a: Patient What is your living situation today?: I have a steady place to live Within the past 12 months, did the food you bought not last and you didn't have the money to get more?: Never true Within the past 12 months, did you worry whether your food would run out before you got money to buy more?: Never true Do you have trouble paying for medicines?: No Do you have trouble getting transportation to medical appointments?: No Do you have trouble paying your heating and electricity bill?: No Do you have trouble taking care of your child, family member or friend?: No Do you have trouble with day-to-day activities such as bathing, preparing meals, shopping, managing finances, etc.?: No Are you currently unemployed and looking for a job?: No Are you interested in more education?: No Please select the resources that you would like help with: None THRIVE Score: 0 AUDIT C Alcohol Use Questionnaire (AUDIT-C) 1. How often do you have a drink containing alcohol?: Never 2. How many drinks containing alcohol do you have on a typical day when you are drinking?: 1 or 2 3. How often do you have six or more drinks on one occasion?: Never Total Score: 0 MARIO-7 AMB Questionnaire MARIO-7 Date MARIO - 7 assessed: 12/14/23 Source: Developed by Drs. Travon Ward, Nissa Saavedra, Apollo Perry and colleagues, with an educational prerna from [employer]. Physical exam (Primary Care) Vital Signs: Last Vital Signs Pulse 84 12/14/23 13:26 BP 126/68 12/14/23 13:26 Pulse Ox 98 12/14/23 13:26 Oxygen Delivery Method Room Air 12/14/23 13:26 BMI result Body Mass Index 35.3 Tobacco/Smoking Status: Tobacco use Status Tobacco use date assessed 12/14/23 12/14/23 13:35 Patient Tobacco Use Status Never used Tobacco 12/14/23 13:35 e-Cigarette/Vaping Use Never Used 12/14/23 13:35 PHQ-9: PHQ-9 Score PHQ-9: Total score 0 12/14/23 13:35 Depression Screening Interpretation: Negative Thrive Assessment: Date of Thrive Assessment Date Thrive assessed 12/14/23 12/14/23 13:35 Const General: alert; No acute distress Eyes Conjunctivae: conjunctivae normal Resp Auscultation: clear to auscultation bilaterally Cardio Rate: regular rate Rhythm: regular rhythm GI Inspection: Yes normal to inspection Extrem General: Yes normal to inspection and No edema Results AMB Hemoglobin A1c AMB Hemoglobin A1c 7.5 % Last Edit by KEARA Dominguez on 12/14/23 13:38 Assessment and Plan Assessment & Plan (1) Type 2 diabetes mellitus with hyperglycemia: Comment: Eye and lasik Code(s): E11.65 - Type 2 diabetes mellitus with hyperglycemia Qualifiers: 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 Hemoglobin A1c goal of less than 6.5. Patient is on metformin 1000 mg twice a day Jardiance 25 mg once a day (2) Hypercholesterolemia: Code(s): E78.00 - Pure hypercholesterolemia, unspecified Plan: Avoid fried foods, chicken skin, eggs, butter margarine, pastries and meat. Be it pork or beef they have a lot of cholesterol LDL goal of less than 100 and triglyceride of less than 150 patient is on simvastatin 10 mg at bedtime (3) GERD (gastroesophageal reflux disease): Code(s): K21.9 - Gastro-esophageal reflux disease without esophagitis Qualifiers: Esophagitis presence: with esophagitis Esophagitis bleeding: without hemorrhage Qualified Code(s): K21.00 - Gastro-esophageal reflux disease with esophagitis, without bleeding Plan: Avoid the foods that causes that usually spicy foods, tomato products, juices, coffee, soda and foods that your sensitive to. After eating do not lie down, allow 3-4 hours before in lie down. And keep the head of bed above 30 degrees to avoid the acid from going up. On pantoprazole 40 mg once a day and Carafate (4) Generalized anxiety disorder: Code(s): F41.1 - Generalized anxiety disorder Plan: Stable (5) Obesity due to excess calories: Code(s): E66.09 - Other obesity due to excess calories Qualifiers: Obesity classification: adult class 2 (BMI 35 - 39.9) Serious obesity comorbidity presence: with serious comorbidity Body mass index: BMI 36.0-36.9 Qualified Code(s): E66.01 - Morbid (severe) obesity due to excess calories; Z68.36 - Body mass index [BMI] 36.0-36.9, adult Plan: Diet and exercise BMI of 35.3 (6) Hypogonadism in male: Code(s): E29.1 - Testicular hypofunction (7) Bicipital tendinitis of left shoulder: Code(s): M75.22 - Bicipital tendinitis, left shoulder Orders: Orders AMB Hemoglobin A1c Today E11.65 - Type 2 diabetes mellitus with hyperglycemia PT Evaluation and Treatment Today M75.22 - Bicipital tendinitis, left shoulder Referrals Ophthalmology Referral E11.9 - Type 2 diabetes mellitus without complications Urology Referral E29.1 - Testicular hypofunction Medications: New glipizide ER 2.5 mg PO DAILY 90 tabs 1RF E11.65 - Type 2 diabetes mellitus with hyperglycemia Refilled empagliflozin 25 mg PO DAILY 90 tabs 1RF E11.65 - Type 2 diabetes mellitus with hyperglycemia, E78.00 - Pure hypercholesterolemia, unspecified Coding Level of Care Code Est Pt Level 4 (23002) Diagnoses Type 2 diabetes mellitus with hyperglycemia, without long-term current use of insulin E11.65 Diabetes mellitus senior living insulin use: without equipment operator intermodal yard use Hypercholesterolemia E78.00 Gastroesophageal reflux disease with esophagitis without hemorrhage K21.00 Esophagitis presence: with esophagitis Esophagitis bleeding: without hemorrhage Generalized anxiety disorder F41.1 Class 2 severe obesity due to excess calories with serious comorbidity and body mass index (BMI) of 36.0 to 36.9 in adult E66.01; Z68.36 Obesity classification: adult class 2 (BMI 35 - 39.9) Serious obesity comorbidity presence: with serious comorbidity Body mass index: BMI 36.0-36.9 Hypogonadism in male E29.1 Bicipital tendinitis of left shoulder M75.22
== END 2023-12-14 14:02 | disposition home or self-care (01) ==
PROVIDERS: PCP Internal Medicine; Visit Provider Internal Medicine
DX: E11.65 Type 2 diabetes mellitus with hyperglycemia (principal); E66.01 Morbid (severe) obesity due to excess calories; Z68.36 Body mass index [BMI] 36.0-36.9, adult; E78.00 Pure hypercholesterolemia, unspecified; K21.00 Gastro-esophageal reflux disease with esophagitis, without bleeding; F41.1 Generalized anxiety disorder; E29.1 Testicular hypofunction; M75.22 Bicipital tendinitis, left shoulder
CPT/HCPCS: 83036; 99214

== ENCOUNTER 2024-02-24 13:42 | Outpatient (AMB) | payer OTHER, SELFPAY ==
--- NOTE | 2024-02-24 13:48 | A.OFFVIS_ITS ---
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 Required: No Accompanied by: Self / Same As Patient Allergies apple [APPLE] Allergy (Severe, Verified 02/24/24 14:08) THROAT CLOSING AND HIVES animal dander [ANIMAL DANDER] Allergy (Intermediate, Verified 02/24/24 14:08) PUFFY EYES SNEEZING COUGHING bees Allergy (Unknown, Uncoded 02/24/24 14:08) Unknown Medication List - Last Reconciled 02/26/24 by Fanta Blair MD albuterol sulfate 90 mcg/actuation 2 puffs inhalation QID PRN Bacillus coagulans (Digestive Advantage Probiotic Gummy) 1 cell PO DAILY blood-glucose meter,continuous (Dexcom G6 Grazing Examiner) As directed check BS TID blood-glucose sensor (Dexcom G6 Sensor device) As directed check the BS TID blood-glucose transmitter (Dexcom G6 Transmitter device) As directed check the BS TID chlorhexidine gluconate 0.12% 15 mL PO BID cholecalciferol (vitamin D3) 250 mcg PO QWEEK empagliflozin 25 mg PO DAILY glipizide ER 2.5 mg PO DAILY lisinopril 2.5 mg PO DAILY 90 days melatonin 20 mg PO .nightly metformin 1,000 mg (2 x 500 mg) PO BID 90 days pantoprazole 40 mg PO DAILY simvastatin 10 mg PO BEDTIME sucralfate 1 g PO BEDTIME 90 days HPI Comments Details: Jean-Pierre is here for evaluation for low testosterone. 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 Discussed repeat labs. Discussed increased physical activity, exercising can help with increasing testosterone levels. [facility] Medical History Bicipital tendinitis of left shoulder Adhesive capsulitis of left shoulder Cough Impaired concentration Upper back pain on left side Allergy Viral upper respiratory illness Chest pain Atypical chest pain Tick bite of abdominal wall Neck pain Bilateral hand pain Back pain Obesity Hypersomnia On beta kassie at home Asthma H/O acute pancreatitis Heart palpitations Obesity due to excess calories Dizziness Fatty liver Vitamin D deficiency Pancreatitis Hypercholesterolemia Type 2 diabetes mellitus with hyperglycemia Surgical History H/O wisdom tooth extraction Family History Father Alive and well Mother Alive and well Maternal Grandfather Diabetes Maternal Grandmother Diabetes Social History Household Members: Significant Other Household Members Other:: roomates Housing: House Are you a primary day care teacher to a significant other at home: No Alcohol intake: never Patient Tobacco Use Status: Never used Tobacco e-Cigarette/Vaping Use: Never Used Second Hand Smoke Exposure: No service: No 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) Cognitive needs: No Hearing needs: No Vision needs: No Review of Systems Const All systems reviewed & are unremarkable except as noted in HPI and below Reports no additional complaints Eyes Reports no additional complaints ENT Reports no additional complaints Card Reports no additional complaints Resp Reports no additional complaints GI Reports no additional complaints Reports as per HPI Musc Reports no additional complaints Skin/Breast Reports system reviewed and no additional complaints, except as documented Neuro Reports no additional complaints Psych Reports no additional complaints Endo Reports no additional complaints Dinesh/Lymph Reports no additional complaints Aller/Immun Reports no additional complaints Physical Exam Const General: healthy appearing, no acute distress and well developed Nutritional Appearance: overweight Orientation/consciousness: patient oriented x3 HEENT Head: Yes normocephalic and Yes atraumatic Eyes Conjunctivae: conjunctivae normal Neck Neck: Yes normal visual inspection Chest Chest palpation & inspection: normal inspection of the chest Resp Effort & Inspection: normal respiratory effort Cardio Rate: regular rate GI Inspection: Yes normal to inspection Skin General skin exam: no rashes or lesions noted Neuro General: patient oriented x3 Extrem General: No pedal edema Psych Appearance: grossly normal Affect: normal affect Results AMB Urinalysis, Automated UA Leukoctes 0 Michael/uL Last Edit by KEARA Ortiz on 02/24/24 14:04 UA Nitrite Negative Last Edit by KEARA Ortiz on 02/24/24 14:04 UA Urobilinogen 0.2 mg/dL Last Edit by Tevin Alegria Tommy on 02/24/24 14:0 4 UA Protein 0 mg/dL Last Edit by KEARA Ortiz on 02/24/24 14:04 UA pH 6.0 Last Edit by Tevin Alegria Tommy on 02/24/24 14:04 UA Blood 0 Seymour/uL Last Edit by KEARA Ortiz on 02/24/24 14:04 UA Specific [place] 1.015 Last Edit by KEARA Ortiz on 02/24/24 14: 04 UA Ketone Negative Last Edit by Tevin Alegria Tommy on 02/24/24 14:04 UA Bilirubin 0 mg/dL Last Edit by KEARA Ortiz on 02/24/24 14:04 UA Glucose 1000 mg/dL Last Edit by Tevin Alegria Tommy on 02/24/24 14:04 3+ Tevin Alegria 02/24/24 14:04 Results Reviewed Results Reviewed: Laboratory Last Values Urine pH (Auto) 6.0 02/24/24 14:03 Specific [place] (Auto) 1.015 02/24/24 14:03 Urine Protein (Auto) 0 mg/dL 02/24/24 14:03 Glucose (UA)(Auto) 1000 mg/dL 02/24/24 14:03 Urine Ketones (Auto) Negative 02/24/24 14:03 Urine Blood (Auto) 0 Seymour/uL 02/24/24 14:03 Urine Nitrite (Auto) Negative 02/24/24 14:03 Urine Bilirubin (Auto) 0 mg/dL 02/24/24 14:03 Urine Urobilinogen (Auto) 0.2 mg/dL 02/24/24 14:03 Leukocyte Esterase (Auto) 0 Michael/uL 02/24/24 14:03 Assessment & Plan Assessment & Plan (1) Low testosterone: Code(s): R79.89 - Other specified abnormal findings of blood chemistry Category: Medical (2) Testosterone deficiency in male: Code(s): E29.1 - Testicular hypofunction Category: Medical Plan Labs as noted below. Discussed increased physical activity, exercising can help with increasing testosterone levels. Orders: Orders AMB Urinalysis Automated 02/24/24 Z13.9 - Encounter for screening, unspecified Lutenizing Hormone Today R79.89 - Other specified abnormal findings of blood chemistry Follicle Stimulating Hormone Today R79.89 - Other specified abnormal findings of blood chemistry Testosterone, Free/Total Today E29.1 - Testicular hypofunction, R79.89 - Other specified abnormal findings of blood chemistry Prolactin Today R79.89 - Other specified abnormal findings of blood chemistry Estradiol Ultra Sensitive Today R79.89 - Other specified abnormal findings of blood chemistry Glucose Fasting Today R79.89 - Other specified abnormal findings of blood chemistry Patient Instructions: The patient had an opportunity to ask questions regarding treatment plan. The patient expressed understanding and agreement with the above treatment plan. The patient is aware they should contact our office by phone for worsening of their current condition or the appearance of new symptoms. Compliance is encouraged with any medications and followup testing that is ordered. It is a privilege to be allowed the opportunity to participate in the urologic care of your patient. If you have any questions or concerns regarding treatment for the above conditions please do not hesitate to contact me. The office telephone contact is [phone]. This note is constructed in part using voice recognition software. While every effort has been made to ensure accuracy product ambassador errors may have been included. Yours sincerely, Fanta Blair MD Coding Level of Care Code New Pt Level 4 (64236) Diagnoses Low testosterone R79.89 Testosterone deficiency in male E29.1
== END 2024-02-24 15:15 | disposition home or self-care (01) ==
PROVIDERS: PCP Internal Medicine; Visit Provider Urology
DX: R79.89 Other specified abnormal findings of blood chemistry (principal); E29.1 Testicular hypofunction
CPT/HCPCS: 99204

== ENCOUNTER → 2024-02-24 13:42 | Outpatient (BNVA) | payer OTHER, SELFPAY | PROVIDERS: PCP Internal Medicine; Visit Provider Urology | DX: E29.1 Testicular hypofunction (principal); R79.89 Other specified abnormal findings of blood chemistry | CPT/HCPCS: 81003; 99202 ==

== ENCOUNTER 2024-04-04 15:43 | Outpatient (AMB) | payer OTHER, SELFPAY ==
[2024-04-04 15:52] VITALS: BP 124/68; PULSE 80; BMI 36.2
--- NOTE | 2024-04-04 15:52 | MHC.PC.OV ---
Vital Signs 04/04/24 15:52 Height 5 ft 6 in Weight 224 lb BMI 36.2 BP 124/68 Blood Pressure Location Lt brachial Position Sitting Pulse 80 Pulse Source Pulse Oximeter Oxygen Delivery Method Room Air Intake Visit Reasons: 3mth f/u Allergies apple [APPLE] Allergy (Severe, Verified 04/04/24 15:55) THROAT CLOSING AND HIVES animal dander [ANIMAL DANDER] Allergy (Intermediate, Verified 04/04/24 15:55) PUFFY EYES SNEEZING COUGHING bees Allergy (Unknown, Uncoded 04/04/24 15:55) Unknown Medication List - Last Reconciled 04/04/24 by Zafar Georges MD albuterol sulfate 90 mcg/actuation 2 puffs inhalation QID PRN Bacillus coagulans (Digestive Advantage Probiotic Gummy) 1 cell PO DAILY blood-glucose meter,continuous (Dexcom G6 Inspector Air Carrier) As directed check BS TID blood-glucose sensor (Dexcom G6 Sensor device) As directed check the BS TID blood-glucose transmitter (Dexcom G6 Transmitter device) As directed check the BS TID chlorhexidine gluconate 0.12% 15 mL PO BID cholecalciferol (vitamin D3) 250 mcg PO QWEEK empagliflozin 25 mg PO DAILY glipizide ER 2.5 mg PO DAILY lisinopril 2.5 mg PO DAILY 90 days melatonin 20 mg PO .nightly metformin 1,000 mg (2 x 500 mg) PO BID 90 days pantoprazole 40 mg PO DAILY simvastatin 10 mg PO BEDTIME sucralfate 1 g PO BEDTIME 90 days tadalafil 5 mg PO DAILY 30 days Tobacco use date assessed: 12/14/23 Dental Screening Dental Screen Date: 08/31/23 HPI 3mth f/u HPI Details 38-year-old obese male with uncontrolled diabetes mellitus hypercholesterolemia GERD generalized anxiety disorder coming in for follow-up. Last seen in November 2023 . Has history of hypogonadism and bicipital tendonitis. Patient has followed up with eye exam March 30 2024. No evidence of diabetic retinopathy for macular edema. Patient has also seen urology for testicular hypofunction complaining of low energy erectile dysfunction patient has work schedule with irregular sleep habits. Have discussed with the patient regarding Cialis as well as testosterone replacement. [facility] Medical History (Updated 04/04/24 @ 15:55 by Zafar Georges MD) Low testosterone Bicipital tendinitis of left shoulder Adhesive capsulitis of left shoulder Cough Impaired concentration Upper back pain on left side Allergy Viral upper respiratory illness Chest pain Atypical chest pain Tick bite of abdominal wall Neck pain Bilateral hand pain Back pain Obesity Hypersomnia On beta kassie at home Asthma H/O acute pancreatitis Heart palpitations Obesity due to excess calories Dizziness Fatty liver Vitamin D deficiency Pancreatitis Hypercholesterolemia Type 2 diabetes mellitus with hyperglycemia Surgical History H/O wisdom tooth extraction Family History Father Alive and well Mother Alive and well Maternal Grandfather Diabetes Maternal Grandmother Diabetes Social History Household Members: Significant Other Household Members Other:: roomates Housing: House Are you a primary career guidance technician to a significant other at home: No Alcohol intake: never Patient Tobacco Use Status: Never used Tobacco e-Cigarette/Vaping Use: Never Used Second Hand Smoke Exposure: No service: No 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 How often do you have a drink containing alcohol?: Never 2. How many drinks containing alcohol do you have on a typical day when you are drinking?: 1 or 2 3. How often do you have six or more drinks on one occasion?: Never Total Score: 0 MARIO-7 AMB Questionnaire MARIO-7 Date MARIO - 7 assessed: 12/14/23 Source: Developed by Drs. Travon Ward, Nissa Saavedra, Apollo Perry and colleagues, with an educational prerna from [employer]. Physical exam (Primary Care) Vital Signs: Last Vital Signs Pulse 80 04/04/24 15:52 BP 124/68 04/04/24 15:52 Pulse Ox 80 L 04/04/24 15:52 Oxygen Delivery Method Room Air 04/04/24 15:52 BMI result Body Mass Index 36.2 Tobacco/Smoking Status: Tobacco use Status Tobacco use date assessed 12/14/23 04/04/24 15:56 Patient Tobacco Use Status Never used Tobacco 04/04/24 15:56 e-Cigarette/Vaping Use Never Used 04/04/24 15:56 Thrive Assessment: Date of Thrive Assessment Date Thrive assessed 12/14/23 04/04/24 15:56 Const General: alert; No acute distress Eyes Conjunctivae: conjunctivae normal Resp Auscultation: clear to auscultation bilaterally Cardio Rate: regular rate Rhythm: regular rhythm GI Inspection: Yes normal to inspection Extrem General: Yes normal to inspection and No edema Results AMB Hemoglobin A1c AMB Hemoglobin A1c 6.2 % Last Edit by KEARA Dominguez on 04/04/24 16:00 Results Reviewed Results Reviewed: Laboratory Last Values Hgb A1c (Clinic) 6.2 % (4.0-6.0) H 04/04/24 11:27 Assessment and Plan Assessment & Plan (1) Type 2 diabetes mellitus with hyperglycemia: Comment: Eye and lasik Code(s): E11.65 - Type 2 diabetes mellitus with hyperglycemia Qualifiers: Diabetes mellitus shelter insulin use: without shelter use Qualified Code(s): E11.65 - Type 2 diabetes mellitus with hyperglycemia Plan: Decrease the amount of carbohydrate intake, pasta, bread, rice and potatoes are all sugar and that is aside from all the sweet stuff, remember that fruits are good but they are Sweet also. Hemoglobin A1c goal of less than 6.5. Patient is on Jardiance 25 mg once a day glipizide 2.5 mg once a day and metformin a 1000 mg twice a day (2) Hypercholesterolemia: Code(s): E78.00 - Pure hypercholesterolemia, unspecified Plan: Avoid fried foods, chicken skin, eggs, butter margarine, pastries and meat. Be it pork or beef they have a lot of cholesterol on simvastatin 10 mg at bedtime LDL goal of less than 100 and triglyceride of less than 150. August last blood work. (3) GERD (gastroesophageal reflux disease): Code(s): K21.9 - Gastro-esophageal reflux disease without esophagitis Qualifiers: Esophagitis presence: with esophagitis Esophagitis bleeding: without hemorrhage Qualified Code(s): K21.00 - Gastro-esophageal reflux disease with esophagitis, without bleeding Plan: Avoid the foods that causes that usually spicy foods, tomato products, juices, coffee, soda and foods that your sensitive to. After eating do not lie down, allow 3-4 hours before in lie down. And keep the head of bed above 30 degrees to avoid the acid from going up. (4) Obesity due to excess calories: Code(s): E66.09 - Other obesity due to excess calories Qualifiers: Obesity classification: adult class 2 (BMI 35 - 39.9) Serious obesity comorbidity presence: with serious comorbidity Body mass index: BMI 36.0-36.9 Qualified Code(s): E66.01 - Morbid (severe) obesity due to excess calories; Z68.36 - Body mass index [BMI] 36.0-36.9, adult Plan: Diet and exercise (5) Generalized anxiety disorder: Code(s): F41.1 - Generalized anxiety disorder Plan: Stable (6) Testosterone deficiency in male: Code(s): E29.1 - Testicular hypofunction Plan: Patient has followed up with Urology and has offered Cialis/testosterone replacement. Diet and exercise can help testosterone Orders: Orders AMB Hemoglobin A1c Today E11.65 - Type 2 diabetes mellitus with hyperglycemia Medications: Refilled blood-glucose meter,continuous (Dexcom G6 Inspector Air Carrier) As directed check BS TID 1 ea 3RF E10.9 - Type 1 diabetes mellitus without complications, E11.65 - Type 2 diabetes mellitus with hyperglycemia blood-glucose sensor (Dexcom G6 Sensor device) As directed check the BS TID 3 ea 3RF E10.9 - Type 1 diabetes mellitus without complications, E11.65 - Type 2 diabetes mellitus with hyperglycemia blood-glucose transmitter (Dexcom G6 Transmitter device) As directed check the BS TID 1 ea 0RF E10.9 - Type 1 diabetes mellitus without complications, E11.65 - Type 2 diabetes mellitus with hyperglycemia Coding Level of Care Code Est Pt Level 4 (73622) Complex EM visit Add On G2211 Diagnoses Type 2 diabetes mellitus with hyperglycemia, without long-term current use of insulin E11.65 Diabetes mellitus intermediate project manager insulin use: without intermediate project manager use Hypercholesterolemia E78.00 Gastroesophageal reflux disease with esophagitis without hemorrhage K21.00 Esophagitis presence: with esophagitis Esophagitis bleeding: without hemorrhage Class 2 severe obesity due to excess calories with serious comorbidity and body mass index (BMI) of 36.0 to 36.9 in adult E66.01; Z68.36 Obesity classification: adult class 2 (BMI 35 - 39.9) Serious obesity comorbidity presence: with serious comorbidity Body mass index: BMI 36.0-36.9 Generalized anxiety disorder F41.1 Testosterone deficiency in male E29.1
== END 2024-04-04 16:16 | disposition home or self-care (01) ==
PROVIDERS: PCP Internal Medicine; Visit Provider Internal Medicine
DX: E11.65 Type 2 diabetes mellitus with hyperglycemia (principal); Z68.36 Body mass index [BMI] 36.0-36.9, adult; E66.01 Morbid (severe) obesity due to excess calories; E78.00 Pure hypercholesterolemia, unspecified; K21.00 Gastro-esophageal reflux disease with esophagitis, without bleeding; F41.1 Generalized anxiety disorder; E29.1 Testicular hypofunction
CPT/HCPCS: 83036; 99214; G2211

== ENCOUNTER 2024-09-07 12:29 | Outpatient (AMB) | payer OTHER, SELFPAY ==
--- OUTSIDE RECORDS SUMMARY | 2024-09-07 12:31 | XMS_ITS | Data Portability ---
Author Organization [place] - [facility], Allergy Address [address] [address] Assessment Encounter Date Assessment Date Assessment LastModified by Organization Details LastModified Time 05/19/2024 05/19/2024 38 year old male presents for reevaluation of the throat and choking. Previously fiberoptic laryngoscopy x [address] neck with contrast was benign. We discussed evaluation of swallowing and choking sensation with modified barium swallow. Patient is highly motivated to proceed with imaging. He will follow-up to discuss results. [email or web address] Not available 05/19/2024 15:03:20 Plan of Treatment Reminders Order Date Submit Date Provider Last Modified By Organization Details Last Modified Time Details Appointments None recorded. Lab None recorded. Referral None recorded. Procedures None recorded. Surgeries None recorded. Imaging [place], modified barium swallow study 2023 024 [facility], [address] [place] [address], [place], [address], 10:20:27 Medication Orders None recorded. Patient TargetsNo targets recorded. Patient InstructionsNo instructions recorded. Reason for Referral None Reported. Results Created Date Observation Date Name Description Value Unit Range Abnormal Flag Note LastModifiedBy Organization Detail LastModifiedTime 05/10/2002/25/2023 jaylai ng/di agnos tic resul t No observ ation record ed. [email or web address] Not Available 01:35:02 08/24/20 24 08/24/2024 fabian elizabeth No observ ation record ed. [email or web address] [address] [place], [address], 08/24/2024 12:54:54 08/24/20 24 08/24/2024 xr ruth chris ow with video and speec h See Note [facility] , a member of [employer] [facility] Aung godoy Name: VIVIANA DAMON Date of : 1984 Reason for Exam: dyspha emiliano Exam Date: 2023 [id number] EST Report Status : Final Orderi ng Provid er: ROXANNA METZGER IJEOMA PCP: [facility] HISTOR Y: Dyspha emiliano. STUDY: Modifi ed barium swallo w study COMPAR DARBY: None at this facili ty HISTOR Y: Aung godoy is a 39-yea r-old male report ing histor y of dyspha emiliano. Aung godoy report s feelin g that he has a left-s ided obstru ction with swallo wing, waxes and wanes. TECHNI QUE: Multip le sequen tial fluoro scopic images of the latera l neck were obtain ed for a swallo wing functi on study. Barium enhanc ed consis tencie s of puddin g, honey, nectar , thin liquid , semi-s olid, and a 13 mm barium tablet were utiliz ed for evalua tion. Examin ation was perfor med with the speech therap ist stephen godoy. FINDIN GS: There was no eviden ce for penetr ation or aspira tion of the variou s consis tencie s. Aung godoy was unable to initia te swallo w 13 mm barium tablet . DAP: 0.58 uGym^2 IMPRES TAHIR: Unable to initia te swallo w of 13 mm barium tablet , otherw ise normal swallo wing functi on. Please refer to the suly bateman speech pathol ogist report for furthe r detail s as clinic henrik bateman. ------ -- FINAL REPORT ------ -- Dictat ed By: Cait Ellis Dictat ed Date: 2023 10:49 ET Assign ed Physic jocy: Coughl in, Nabeel F Review ed and Electr onical ly Signed By: Nabeel Chilel Signed Date: 2023 13:06 ET [facility]st [id number] Transc ribed By: Self Edit Transc ribed Date: 2023 10:51 ET Reside nt/PA/ PRINTER MAINTAINER: Ellis Cait [email or web address] [address], [address], 08/24/2024 13:40:58 Result Notes None recorded. Problems Name Problem SNOMED Code Status Onset Date Resolution Date Notes Provider Name and Address Organization Details Recorded Time Gastroeso phageal reflux disease without esophagit is 981933537 Active 2022 Gastro-es ophageal reflux disease without esophagit is; Note: Date Diagnosed : 03/11/2023 10:29 AM (K21.9) Not Available [facility] 4 03:10:33 Deviated nasal septum 535868686 Active 2020 Deviated nasal septum; Note: Date Diagnosed : 1 9:27 AM (J34.2) Not Available [facility] 4 03:10:33 Chronic rhinitis 81872468 Active 2022 Chronic rhinitis; Note: Date Diagnosed : 03/11/2023 5:47 PM (J31.0) Not Available [facility] 4 03:10:33 Hypertrop hy of nasal turbinate s 23089442 Active 2020 Hypertrop hy of nasal turbinate s; Note: Date Diagnosed : 1 9:27 AM (J34.3) Not Available [facility] 4 03:10:34 Sensation of foreign body in throat 49770897069 9104 Active 2023 ROXANNA XAVIER PA-C [address] [facility],[place] [address], [place], [address] , [place] - [facility] 4 14:56:56 Dysphagia 63828329 Active 2023 ROXANNA XAVIER PA-C [address] [facility],[place] [address], [place], [phone] , [place] - [facility] 14:57:39 Problem Notes None recorded. Procedures Surgical History None recorded. Imaging Results Imaging Date Name Status LastModified by Organiz ation Details LastModified Time 02/25/2023 imaging/diagnos tic result completed [email or web address] Information not available 05/10/2024 01:35:02 08/24/2024 procedures completed [address], [address], 08/24/2024 12:54:54 08/24/2024 xr barium swallow with video and speech completed [address], [address], 08/24/2024 13:40:58 Procedure Notes None recorded. Medical Equipment None Reported. Allergies No known drug allergies Medications Name Sig Start Date Stop Date Status Note LastModified by Organization Details LastModified Time metformin 500 mg tablet TAKE 2 TABLETS BY MOUTH TWICE A DAY FOR 90 DAYS active Not Available Not Available No t Available sucralfat e 1 gram tablet TAKE 1 TABLET BY MOUTH AT BEDTIME FOR 90 DAYS active Not Available Not Available No t Available simvastat in 10 mg tablet TAKE 1 TABLET BY MOUTH DAILY AT BEDTIME active Not Available Not Available No t Available meclizine 25 mg tablet 05/19 completed Medicati on ID: [id number] B rand Name: meclizin e Send Method: E-Prescr ibed Sub s Allowed: subs OK Medic ationGen ericName : meclizin e Not Available Not Available Not Available simvastat in 5 mg tablet 05/19 completed Medicati on ID: [id number] B rand Name: simvasta tin Send Method: E-Prescr ibed Sub s Allowed: subs OK Medic ationGen ericName : simvasta tin Not Available Not Available Not Available glipizide ER 2.5 mg tablet, extended release 24 hr TAKE 1 TABLET BY MOUTH EVERY DAY active Not Available Not Available No t Available pantopraz ole 40 mg tablet,de layed release TAKE 1 TABLET BY MOUTH DAILY active Not Available Not Available No t Available mometason e 50 mcg/actua tion nasal spray [place] 2 spray into both nostrils once a day 2022 active Medicati on ID: [id number] D uration Value: 30 Brand Name: marlyn chacon Send Method: E-Prescr ibed Sub s Allowed: subs OK Medic ationGen ericName : umeshso ne Not Available Not Available Not Available lisinopri l 2.5 mg tablet TAKE 1 TABLET BY MOUTH EVERY DAY FOR 90 DAYS active Not Available Not Available No t Available tadalafil 5 mg tablet TAKE 1 TABLET BY MOUTH ONCE DAILY active Not Available Not Available No t Available Jardiance 10 mg tablet 05/19 completed Medicati on ID: [id number] B rand Name: Jardianc e Send Method: E-Prescr ibed Sub s Allowed: subs OK Medic ationGen ericName : Jardianc e Not Available Not Available Not Available Jardiance 25 mg tablet TAKE 1 TABLET BY MOUTH EVERY DAY active Not Available Not Available No t Available Dexcom G6 Sensor device CHECK BLOOD SUGAR 3 TIMES A DAY DIRECTED active Not Available Not Available No t Available Dexcom G6 Transmitt er device DIRECTED CHECK THE BLOOD SUGAR 3 TIMES A DAY active Not Available Not Available No t Available Vitals Date Recorded Body height Body mass index (BMI) Body weight Provider Name and Address Organization Details Last Updated DateTime 05/19/2024 167.64 cm 36.3 kg/m2 406254.28 g Arina Mosquera [place] - [facility] 05/19/2024 13:03:47 Social History None recorded. Functional Status None recorded. Mental Status None recorded. Family History Nothing Reported. Medical History No medical history recorded. Past Encounters Encounter ID Performer Location Encounter Start Date Encounter Closed Date Diagnosis/Indication Diagnosis SNOMED-CT Code Diagnosis ICD10 Code [id number] YEMI TANG MD [facility] [address] [facility] BORIS DINERO [phone] 05/19/2024 12:56:43 05/19/2024 13:21:52 Sensation of foreign body in throat 5369540809 07241 R09.A2 Health Concerns Section Related Observation LastModified by Organization Detai ls LastModified Time None Recorded Concern Status LastModified by Organization Details LastModified Time None Recorded Advance Directives Directive None Recorded Payers Encounter Date Sequence Insurance Name Policy Number Policy Patel Covered Member ID Patel Member ID Guarantor Name 05/19/2024 1 [facility] (MEDICAID REPLACEMENT - HMO) [id number] Viviana Damon [id number] Viviana Damon Notes Date Note Type Note Provider Name and Address Organization Details Recorded Time 05/19/2024 text/html 38 year old male presents for reevaluation of the throat. He continues to have something pop out of the left neck that he puts back into place for the past 1.5 years. He was evaluated by Dr. Ashford for this and FOL in February and April were benign. CT neck performed at [place] 02/2023 without abnormality. There was concern for potential left thyroid nodule and he followed up with his PCP for this. He is undergoing ultrasound of thyroid ordered by his PCP. He continues to have choking sensation and sometimes chokes on his saliva. Denies any choking with food or liquids. He went for voice therapy and barium swallow was recommended. Has been treated with antibiotics, steroids, antacid/PPI without improvement. Reports positive allergy testing but immunotherapy was not recommended. YEMI MARIE MD [address] [place] [address], [phone], [place] - [facility] 05/19/2024 16:01:17
--- NOTE | 2024-09-07 12:41 | A.OFFPC_ITS ---
Vital Signs 09/07/24 12:43 Height 5 ft 6 in Weight 223 lb BMI 36.0 BP 110/66 Blood Pressure Location Lt brachial Position Sitting Pulse 78 Pulse Source Pulse Oximeter Pulse Oximetry (%) 97 Oxygen Delivery Method Room Air Intake Visit Reasons: Annual Exam Intake Note: Patient is here today for a physical. Pt decline flu shot today. Plate Grainer Required: No Shoe Singer: Present Accompanied by: Spouse Allergies apple [APPLE] Allergy (Severe, Verified 09/07/24 12:43) THROAT CLOSING AND HIVES animal dander [ANIMAL DANDER] Allergy (Intermediate, Verified 09/07/24 12:43) PUFFY EYES SNEEZING COUGHING bees Allergy (Unknown, Uncoded 09/07/24 12:43) Unknown Medication List - Last Reconciled 09/07/24 by Zafar Georges MD albuterol sulfate 90 mcg/actuation 2 puffs inhalation QID PRN Bacillus coagulans (Digestive Advantage Probiotic Gummy) 1 cell PO DAILY blood-glucose meter,continuous (DexFuturetec G6 Trial Attorney) As directed check BS TID blood-glucose sensor (Dexcom G6 Sensor device) As directed check the BS TID blood-glucose transmitter (Dexcom G6 Transmitter device) As directed check the BS TID chlorhexidine gluconate 0.12% 15 mL PO BID cholecalciferol (vitamin D3) 50 mcg PO DAILY [cinammon PO] empagliflozin 25 mg PO DAILY glipizide ER 2.5 mg PO DAILY lisinopril 2.5 mg PO DAILY 90 days melatonin 20 mg PO .nightly metformin 1,000 mg (2 x 500 mg) PO BID 90 days pantoprazole 40 mg PO DAILY simvastatin 10 mg PO BEDTIME sucralfate 1 g PO BEDTIME 90 days tadalafil 5 mg PO DAILY 30 days Tobacco use date assessed: 09/07/24 Dental Screening Dental Screen Date: 09/07/24 Did you have a dental visit in the last 12 months?: Yes Did you have a dental problem in the last 6 months where you did not have access to dental care?: No Was dental information given to patient?: Patient has dentist HPI Annual Exam HPI Details The patient is a 39-year-old male presenting with multiple chronic conditions and concerns including musculoskeletal pain and swallowing difficulties. The patient has a history of Diabetes Mellitus Type 2 and is currently managed with Jardiance, glipizide, and metformin. Recent hemoglobin A1c was reported at 6.2%. He reports Thanksgiving dietary indiscretions as a factor in fluctuating blood glucose levels. Hypertension and hyperlipidemia are controlled with lisinopril and simvastatin respectively. He takes pantoprazole for gastroesophageal reflux, which he describes as effectively managed unless he consumes spicy foods late at night. Musculoskeletal pain is primarily reported in the groin area, exacerbated by physical activities involving sudden movements such as kneeling and standing abruptly, with associated episodes of back pain. Such pain originated in the spring after an awkward movement and has persisted since. He reports swelling or hernias absent during groin examinations. Sciatica symptoms are present with pain noted along the sciatic nerve path. Initial interventions have not been successful, leading to ongoing discomfort. Swallowing difficulties persist with a history of previous negative gas troenterological evaluation including barium swallow and thyroid CAT scan. A lump is intermittently palpable in the neck, attributed to possibly the thyroid bone by prior ENT evaluations. Symptoms include frequent choking on liquids, with testing revealing a subcentimeter thyroid nodule. Skin conditions are subacute, with noted seborrheic dermatitis requiring potential dermatological management. - Advised increased physical activity to balance dietary intake. - Dietary counseling for actions impacti ng blood glucose levels. - Discussed potential new regimen of vit nolan D, now at 250 IU daily. - Declination of flu vaccine noting prio r adverse reactions. - Encouraged consideration of pneumonia vaccination in the future. - Recommended proactive fluid intake to aid overall health and balance. - Regular blood work for monitoring of c hronic conditions is encouraged. - Dermatologic follow-up advised for kaz orrhea if persisting post-treatment. 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 - Substance Use: Denies alcohol, tobacco , and recreational drug use. - Nutrition: Reports occasional dietary indiscretions, particularly late-night spicy food. - Physical Activity: Notes physical rest rictions due to occupation and musculoskeletal discomfort. - Musculoskeletal: Reports episodes of g roin and back pain exacerbated by physical movement. - Neurological: Denies passing out or si gnificant dizziness. - Oropharyngeal: Reports chronic difficu lty swallowing, frequent choking especially with liquids. - Skin: Reports dryness and scaliness, p articularly under the matt. - Cardiovascular: Denies chest pain. - Respiratory: Denies shortness of breat h. - Imaging: Recent CAT scan and ultrasoun d of thyroid highlight a subcentimeter nodule. - Laboratories: Previous A1c at 6.2%, re cent blood work not discussed in detail during this visit. [facility] Medical History (Updated 09/07/24 @ 13:12 by Zafar Georges MD) Low testosterone Bicipital tendinitis of left shoulder Adhesive capsulitis of left shoulder Cough Impaired concentration Upper back pain on left side Allergy Viral upper respiratory illness Chest pain Atypical chest pain Tick bite of abdominal wall Neck pain Bilateral hand pain Back pain Obesity Hypersomnia On beta kassie at home Asthma H/O acute pancreatitis Heart palpitations Obesity due to excess calories Dizziness Fatty liver Vitamin D deficiency Pancreatitis Hypercholesterolemia Type 2 diabetes mellitus with hyperglycemia Surgical History H/O wisdom tooth extraction Family History Father Alive and well Mother Alive and well Maternal Grandfather Diabetes Maternal Grandmother Diabetes Social History Household Members: Significant Other Household Members Other:: roomates Housing: House Are you a primary childcare center administrator to a significant other at home: No Alcohol intake: never Patient Tobacco Use Status: Never used Tobacco e-Cigarette/Vaping Use: Never Used Second Hand Smoke Exposure: No service: No 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 1. Little interest or pleasure in doing things: not at all 2. Feeling down, depressed, or hopeless: not at all 3. Trouble falling or staying asleep, or sleeping too much: not at all 4. Feeling tired or having little energy: nearly every day 5. Poor appetite or overeating: not at all 6. Feeling bad about yourself - or that you are a failure or have let yourself or your family down: not at all 7. Trouble concentrating on things, such as reading the newspaper or watching television: several days 8. Moving or speaking so slowly that other people could have noticed. Or the opposite - being so fidgety or restless that you have been moving around a lot more than usual: not at all 9. Thoughts that you would be better off or of hurting yourself in some way: not at all Total score: 4 Depression Screening Interpretation: Positive Depression Screening Done: Yes Source: Developed by Drs. Travon Ward, Nissa Saavedra, Apollo Perry and colleagues, with an educational prerna from [employer]. Thrive Questionnaire Date Thrive assessed: 09/07/24 I am a: Patient What is your living situation today?: I have a steady place to live Within the past 12 months, did the food you bought not last and you didn't have the money to get more?: Never true Within the past 12 months, did you worry whether your food would run out before you got money to buy more?: Never true Do you have trouble paying for medicines?: No Do you have trouble getting transportation to medical appointments?: No Do you have trouble paying your heating and electricity bill?: No Do you have trouble taking care of your child, family member or friend?: No Do you have trouble with day-to-day activities such as bathing, preparing meals, shopping, managing finances, etc.?: No Are you currently unemployed and looking for a job?: No Are you interested in more education?: No Please select the resources that you would like help with: None Currently or been in a relationship where the following occur: No concerns reported THRIVE Score: 0 AUDIT C Alcohol Use Questionnaire (AUDIT-C) 1. How often do you have a drink containing alcohol?: Never Total Score: 0 MARIO-7 AMB Questionnaire MARIO-7 Date MARIO - 7 assessed: 09/07/24 Feeling nervous, anxious, or on edge: 0 = Not at all Not being able to stop or control worryin = Not at all Worrying too much about different things: 0 = Not at all Trouble relaxin = Several days Being so restless that it is hard to sit still: 0 = Not at all Becoming easily annoyed or irritable: 1 = Several days Feeling afraid as if something awful might happen: 0 = Not at all Total MARIO-7 score (0-4 normal; 5-9 mild; 10-14 moderate; 15-21 severe): 2 Source: Developed by Drs. Travon Ward, Nissa Saavedra, Apollo Perry and colleagues, with an educational prerna from [employer]. Review of Systems Const Denies poor appetite and Denies weakness Eyes Denies no additional complaints ENT Reports Normal hearing present, Denies dizziness, Denies nasal congestion, Denies tinnitus and Denies sore throat Card Denies chest pain, Denies syncope, Denies rapid heart rate and Denies dyspnea Resp Denies cough and Denies dyspnea GI Denies change in stool character, Reports constipation, Denies diarrhea, Denies nausea and Denies vomiting Denies dysuria and Denies urinary frequency Neuro Reports Normal hearing present, Denies confusion, Denies dizziness, Denies syncope and Denies weakness Psych Denies confusion Physical exam (Primary Care) Vital Signs: Last Vital Signs Pulse 78 09/07/24 12:43 BP 110/66 09/07/24 12:43 Pulse Ox 97 09/07/24 12:43 Oxygen Delivery Method Room Air 09/07/24 12:43 Care Plan Goal for BP management: scaly rash on hairline and eye brow BMI result Body Mass Index 36.0 Tobacco/Smoking Status: Tobacco use Status Tobacco use date assessed 09/07/24 09/07/24 12:46 Patient Tobacco Use Status Never used Tobacco 09/07/24 12:46 e-Cigarette/Vaping Use Never Used 09/07/24 12:46 PHQ-9: PHQ-9 Score PHQ-9: Total score 4 09/07/24 12:46 Depression Screening Interpretation: Positive Thrive Assessment: Date of Thrive Assessment Date Thrive assessed 09/07/24 09/07/24 12:46 Currently or been in a relationship where the following occur: No concerns reported Const General: alert and awake; No confusion Orientation/consciousness: No confusion HENMT Head: Yes normocephalic Ears: external ears normal and TM's normal bilaterally Face and sinus: Yes normal facial exam Mouth: moist mucous membranes Throat: Yes tonsils normal Eyes Conjunctivae: conjunctivae normal Pupils: Equal, round and reactive pupils present and Pupil accommodation reflex normal Direct Ophthalmoscopy: normal light reflex Neck Neck: No lymphadenopathy Thyroid: Thyroid normal Chest Chest palpation & inspection: normal inspection of the chest Resp Effort & Inspection: normal respiratory effort and no audible wheezes Auscultation: clear to auscultation bilaterally, no crackles, no wheezes and lung sounds not diminished Cardio Rate: regular rate Rhythm: regular rhythm Peripheral pulses: radial pulses present and dorsalis pedis present GI Palpation (GI): no masses Auscultation: normal bowel sounds and normoactive bowel sounds Rectal Exam - Male: Yes deferred Skin General skin exam: no rashes or lesions noted Rashes: no rashes Neuro General: deep tendon reflexes 2+ bilaterally and No confusion Cranial nerves: Yes Equal, round and reactive pupils present, Yes Midline tongue present, Yes Normal hearing present and Yes Ability to bilaterally elevate shoulders present Cognition (Neuro): normal cognition Gait exam (Neuro): Normal gait present Motor exam (neuro): 5/5 motor strength present throughout Deep tendon reflexes (DTR's): Right brachioradialis reflex intensity grade: 2+, Left brachioradialis reflex intensity grade: 2+, Right patellar reflex intensity grade: 2+ and Left patellar reflex intensity grade: 2+ Extrem General: No edema Results AMB Hemoglobin A1c AMB Hemoglobin A1c 6.6 % Last Edit by KEARA Diaz on 09/07/24 13:02 Results Reviewed Results Reviewed: Laboratory Last Values Hgb A1c (Clinic) 6.6 % (4.0-6.0) H 09/07/24 12:48 Coding Level of Care Code Est Pt Prev Care 40-64y(68580) Diagnoses Annual physical exam Z00.00 Type 2 diabetes mellitus with hyperglycemia, without long-term current use of insulin E11.65 Diabetes mellitus alf insulin use: without bed bug exterminator use Hypercholesterolemia E78.00 Gastroesophageal reflux disease with esophagitis without hemorrhage K21.00 Esophagitis bleeding: without hemorrhage Esophagitis presence: with esophagitis Class 2 severe obesity due to excess calories with serious comorbidity and body mass index (BMI) of 36.0 to 36.9 in adult E66.01; Z68.36 Body mass index: BMI 36.0-36.9 Obesity classification: adult class 2 (BMI 35 - 39.9) Serious obesity comorbidity presence: with serious comorbidity Generalized anxiety disorder F41.1 Seborrheic dermatitis L21.9 Low back pain M54.50 Thyroid nodule E04.1 Assessment & Plan Assessment & Plan (1) Annual physical exam: Code(s): Z00.00 - Encounter for general adult medical examination without abnormal findings Category: Medical Plan: Patient is advised to eat healthy, keep well hydrated, keep active and have adequate sleep. (2) Type 2 diabetes mellitus with hyperglycemia: Comment: Eye and lasik Code(s): E11.65 - Type 2 diabetes mellitus with hyperglycemia Category: Medical Qualifiers: Diabetes mellitus alf insulin use: without alf use Qu alified Code(s): E11.65 - Type 2 diabetes mellitus with hyperglycemia Plan: Decrease the amount of carbohydrate intake, pasta, bread, rice and potatoes are all sugar and that is aside from all the sweet stuff, remember that fruits are good but they are Sweet also. Hemoglobin A1c goal of less than 6.5. Patient is on Jardiance 25 mg once a day glipizide 2.5 mg once a day metformin a 1000 mg twice a day (3) Hypercholesterolemia: Code(s): E78.00 - Pure hypercholesterolemia, unspecified Category: Medical Plan: Avoid fried foods, chicken skin, eggs, butter margarine, pastries and meat. Be it pork or beef they have a lot of cholesterol LDL goal of less than 100 and triglyceride of less than 150 on simvastatin 10 mg once a day will need blood work. (4) GERD (gastroesophageal reflux disease): Code(s): K21.9 - Gastro-esophageal reflux disease without esophagitis Category: Medical Qualifiers: Esophagitis bleeding: without hemorrhage Esophagitis presence: with esophagitis Qualified Code(s): K21.00 - Gastro-esophageal reflux disease with esophagitis, without bleeding Plan: Avoid the foods that causes that usually spicy foods, tomato products, juices, coffee, soda and foods that your sensitive to. After eating do not lie down, allow 3-4 hours before in lie down. And keep the head of bed above 30 degrees to avoid the acid from going up. On pantoprazole 40 mg once a day and Carafate (5) Obesity due to excess calories: Code(s): E66.09 - Other obesity due to excess calories Category: Medical Qualifiers: Body mass index: BMI 36.0-36.9 Obesity classification: adult class 2 (BMI 35 - 39.9) Serious obesity comorbidity presence: with serious comorbidity Qualified Code(s): E66.01 - Morbid (severe) obesity due to excess calories; Z68.36 - Body mass index [BMI] 36.0-36.9, adult Plan: Diet and exercise (6) Generalized anxiety disorder: Code(s): F41.1 - Generalized anxiety disorder Category: Medical Plan: Stable (7) Seborrheic dermatitis: Code(s): L21.9 - Seborrheic dermatitis, unspecified Category: Medical (8) Low back pain: Code(s): M54.50 - Low back pain, unspecified Category: Medical (9) Thyroid nodule: Code(s): E04.1 - Nontoxic single thyroid nodule Category: Medical Plan - Continue current medications including Jardiance, glipizide, lisinopril, metformin, and other supportive therapy for chronic conditions with adherence to diabetic diet and lifestyle modifications. - Initial trial of prescription-strength shampoo for seborrheic dermatitis. - Recommendation for ultrasound evaluation of thyroid nodule present in neck. - Referral to dermatology for persistent scalp condition if unresponsive to treatment. - Reinforce avoidance of dietary triggers for reflux symptoms and consider long-term gastrointestinal monitoring. - Evaluation and physiotherapy referral for musculoskeletal pain management encompassing both groin and sciatic nerve involvement. - Continued observation and specialist follow-up for neck and swallowing concerns, with consideration for further ENT consultation as necessary. During the consultation, I discussed the importance of consistent medication adherence and lifestyle adjustments necessary for optimal management of diabetes and hypertension. We reviewed the recent A1c levels, acknowledging the potential impacts of recent holiday dietary choices. He was informed of the need for regular monitoring and punctuated by a discussion about the implications of his thyroid nodule, agreeing on an ultrasound to further evaluate its clinical significance. We reviewed identified barriers to physical activity related to occupational sedentary nature and back pain, agreeing on seeking physiotherapy support. The risks and benefits of flu and pneumonia vaccinations were discussed, with the patient opting to consider further information before deciding on pneumonia vaccination. We discussed the diagnostic accuracy challenges with the presented swallowing issue, and the patient was advised to continue vigilance regarding symptomatic changes. - Take all prescribed medications as directed, including daily adjustments to vitamin D, and report any side effects. - Email a complete list of all supplements to assess for any interactions. - Consider physiotherapy to address musculoskeletal concerns. - Use the prescribed seborrheic dermatitis shampoo according to instructions. - Monitor dietary choices to minimize blood sugar elevations and manage reflux. - Schedule and attend follow-up appointments for thyroid evaluation and skin care needs. - Research the pneumonia vaccine and discuss considerations at the next appointment. - Stay hydrated and maintain as much physical exertion as condition allows. Orders: Orders Complete Blood Count Auto Diff Today E11.65 - Type 2 diabetes mellitus with hyperglycemia Free T4 (Free Thyroxine) Today E11.65 - Type 2 diabetes mellitus with hyperglycemia Thyroid Stimulating Hormone Today E11.65 - Type 2 diabetes mellitus with hyperglycemia Lipid Panel Today E11.65 - Type 2 diabetes mellitus with hyperglycemia, E78.00 - Pure hypercholesterolemia, unspecified Microalbumin, Random (w Creat) Today E11.65 - Type 2 diabetes mellitus with hyperglycemia Creatinine Urine Today E11.65 - Type 2 diabetes mellitus with hyperglycemia Vitamin B12 and Folate Today E11.65 - Type 2 diabetes mellitus with hyperglycemia Vitamin D 25-OH Total Today E11.65 - Type 2 diabetes mellitus with hyperglycemia US thyroid Today E04.1 - Nontoxic single thyroid nodule XR lumbar spine 2-3V Today M54.50 - Low back pain, unspecified Comprehensive Met. Panel Today E11.65 - Type 2 diabetes mellitus with hyperglycemia AMB Hemoglobin A1c Today E11.65 - Type 2 diabetes mellitus with hyperglycemia Referrals Dermatology Referral L21.9 - Seborrheic dermatitis, unspecified Medications: New ketoconazole 2% 1 appl topical 2XW 120 mL 0RF L21.9 - Seborrheic dermatitis, unspecified
[2024-09-07 12:43] VITALS: BP 110/66; PULSE 78; O2SAT 97; BMI 36.0
== END 2024-09-07 13:24 | disposition home or self-care (01) ==
PROVIDERS: PCP Internal Medicine; Visit Provider Internal Medicine
DX: Z00.00 Encounter for general adult medical examination without abnormal findings (principal); E11.65 Type 2 diabetes mellitus with hyperglycemia; E66.01 Morbid (severe) obesity due to excess calories; Z68.36 Body mass index [BMI] 36.0-36.9, adult; E78.00 Pure hypercholesterolemia, unspecified; K21.00 Gastro-esophageal reflux disease with esophagitis, without bleeding; F41.1 Generalized anxiety disorder; L21.9 Seborrheic dermatitis, unspecified; M54.50 Low back pain, unspecified; E04.1 Nontoxic single thyroid nodule

== ENCOUNTER → 2024-09-07 12:29 | Outpatient (BNVA) | payer OTHER, SELFPAY | PROVIDERS: PCP Internal Medicine; Visit Provider Internal Medicine | DX: Z00.00 Encounter for general adult medical examination without abnormal findings (principal); E11.65 Type 2 diabetes mellitus with hyperglycemia; E78.00 Pure hypercholesterolemia, unspecified; K21.00 Gastro-esophageal reflux disease with esophagitis, without bleeding; E66.01 Morbid (severe) obesity due to excess calories; F41.1 Generalized anxiety disorder; L21.9 Seborrheic dermatitis, unspecified; M54.50 Low back pain, unspecified; E04.1 Nontoxic single thyroid nodule; Z68.36 Body mass index [BMI] 36.0-36.9, adult; Z79.899 Other long term (current) drug therapy | CPT/HCPCS: 83036; 96127; 99396 ==

== ENCOUNTER 2024-09-11 10:25 | Outpatient (REF) | payer OTHER, SELFPAY ==
--- OUTSIDE RECORDS SUMMARY | 2024-09-11 10:28 | XMS_ITS | Data Portability ---
Author Organization [place] - [facility], Allergy Address [address] [address] Assessment Encounter Date Assessment Date Assessment LastModified [...] imaging. He will follow-up to discuss results. Not available 05/19/2024 15:03:20 Plan of Treatment Reminders Order Date Submit Date Provider Last Modified By Organization Details Last Modified Time Details Appointments None recorded. Lab None recorded. Referral None recorded. Procedures None recorded. Surgeries None recorded. Imaging [place], modified barium swallow study 2023 024 [facility] Diagnosit Imaging Dept, [address] [place] [address], [place], [address], 10:20:27 Medication Orders None recorded. Patient TargetsNo targets recorded. Patient InstructionsNo instructions recorded. Reason for Referral None Reported. Results Created Date Observation Date Name Description Value Unit Range Abnormal Flag Note LastModifiedBy Organization Detail LastModifiedTime 05/10/2002/25/2023 jaylai ng/di agnos tic resul t No observ ation record ed. [email or web address] Not Available 01:35:02 08/24/20 24 08/24/2024 fabian elizabeth No observ ation record ed. [email or web address] [address] [place], [address], 08/24/2024 12:54:54 08/24/20 24 08/24/2024 xr ruth chris ow with video and speec h See Note [facility] , a member of [facility] Aung godoy Name: VIVIANA DAMON Date of : 1984 Reason for Exam: dyspha emiliano Exam Date: 2023 [id number] EST Report Status : Final Orderi ng [...] Date: 2023 13:06 ET [facility]st [id number] Transc ribed By: Self Edit Transc ribed Date: 2023 10:51 ET Reside nt/PA/ RESEARCH EPIDEMIOLOGIST: Ellis Cait [email or web address] [address], [address], 08/24/2024 13:40:58 Result Notes None recorded. Problems Name Problem SNOMED Code Status Onset Date Resolution Date Notes Provider Name and Address Organization Details Recorded Time Gastroeso phageal reflux disease without esophagit is 903944281 Active 2022 Gastro-es ophageal reflux disease without esophagit is; Note: Date Diagnosed : 03/11/2023 10:29 AM (K21.9) Not Available [facility] 4 03:10:33 Deviated nasal septum 395802326 Active 2020 Deviated nasal septum; Note: Date Diagnosed : 1 9:27 AM (J34.2) Not Available [facility] 4 03:10:33 Chronic rhinitis 64013729 Active 2022 Chronic rhinitis; Note: Date Diagnosed : 03/11/2023 5:47 PM (J31.0) Not Available [facility] 4 03:10:33 Hypertrop hy of nasal turbinate s 68566282 Active 2020 Hypertrop hy of nasal turbinate s; Note: Date Diagnosed : 1 9:27 AM (J34.3) Not Available [facility] 4 03:10:34 Sensation of foreign body in throat 83633284640 9104 Active 2023 ROXANNA XAVIER PA-C [address] [facility],[place] [address], [place], [address] , [place] - [facility] 4 14:56:56 Dysphagia 35269492 Active 2023 ROXANNA XAVIER PA-C [address] [facility],[place] [address], [place], [address] , [place] - [facility] 14:57:39 Problem Notes None recorded. Procedures Surgical History None recorded. Imaging Results Imaging Date Name Status LastModified by Organiz ation Details LastModified Time 02/25/2023 imaging/diagnos tic result completed [email or web address] Information not available 05/10/2024 01:35:02 08/24/2024 procedures completed [address], [address], 08/24/2024 12:54:54 08/24/2024 xr barium swallow with video and speech completed [address], [address], 08/24/2024 13:40:58 Procedure Notes None recorded. Medical [...] mg tablet 05/19 completed Medicati on ID: [id number] B rand Name: meclizin e Send Method: E-Prescr ibed Sub s Allowed: subs OK Medic ationGen ericName : meclizin e Not Available Not Available Not Available simvastat in 5 mg tablet 05/19 completed Medicati on ID: [id number] B rand Name: simvasta tin Send Method: [...] mometason e 50 mcg/actua tion nasal spray Mobile 2 spray into both nostrils once a day 2022 active Medicati on ID: [id number] D uration Value: 30 Brand Name: marlyn [...] mg tablet 05/19 completed Medicati on ID: [id number] B rand Name: Jardianc e Send Method: [...] Updated DateTime 05/19/2024 167.64 cm 36.3 kg/m2 026031.28 g Arina Mosquera [place] - [facility] 05/19/2024 13:03:47 Social History None recorded. Functional Status None recorded. Mental Status None recorded. Family History Nothing Reported. Medical History No medical history recorded. Past Encounters Encounter ID Performer Location Encounter Start Date Encounter Closed Date Diagnosis/Indication Diagnosis SNOMED-CT Code Diagnosis ICD10 Code [id number] YEMI TANG MD [facility] [address] [facility] [place] [address] 05/19/2024 12:56:43 05/19/2024 13:21:52 Sensation of foreign body in throat [id number] 24499 R09.A2 Health Concerns Section Related Observation LastModified by Organization Detai ls LastModified Time None Recorded Concern Status LastModified by Organization Details LastModified Time None Recorded Advance Directives Directive None Recorded Payers Encounter Date Sequence Insurance Name Policy Number Policy Patel Covered Member ID Patel Member ID Guarantor Name 05/19/2024 1 [facility] (MEDICAID REPLACEMENT - HMO) [id number] Viviana Damon [id number] Viviana Damon Notes Date Note Type [...] April were benign. CT neck performed at [place] 02/2023 without abnormality. There was concern for [...] immunotherapy was not recommended. YEMI MARIE MD [address] [place] [address], [phone], [place] - [facility] 05/19/2024 16:01:17
== END 2024-09-11 10:26 | disposition home or self-care (01) ==
LOC: HO.HMGCX 10:25
PROVIDERS: PCP Internal Medicine; Visit Provider Internal Medicine
DX: E04.1 Nontoxic single thyroid nodule (principal)
CPT/HCPCS: 76536

== ENCOUNTER 2024-09-29 10:07 | Outpatient (AMB) | payer OTHER, SELFPAY ==
[2024-09-29 10:23] VITALS: BP 116/84; PULSE 89; O2SAT 97; BMI 36.5
--- NOTE | 2024-09-29 10:23 | MHC.PC.OV ---
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 Required: No Accompanied by: Self / Same As Patient Allergies apple [APPLE] Allergy (Severe, Verified 09/29/24 10:23) THROAT CLOSING AND HIVES animal dander [ANIMAL DANDER] Allergy (Intermediate, Verified 09/29/24 10:23) PUFFY EYES SNEEZING COUGHING bees Allergy (Unknown, Uncoded 09/29/24 10:23) Unknown Tobacco use date assessed: 09/29/24 Dental Screening Dental Screen Date: 09/29/24 Did you have a dental visit in the last 12 months?: Yes Did you have a dental problem in the last 6 months where you did not have access to dental care?: No Was dental information given to patient?: Patient has dentist HPI Cyst HPI Details The patient is a 39-year-old male presenting with an infected penile cyst. The patient reports that the cyst has been present since his circumcision, and he describes it as a hard, movable mass. Over time, the cyst occasionally becomes infected. The current infection began early this week with increased pain, and when pressed, it exudes a white discharge. The patient also has a history of an asymptomatic cyst on his leg. This cyst has been present for a very long time and has not changed or caused any notable symptoms. The patient mentioned this during the visit but was primarily concerned about the infected cyst on his penis. [facility] Medical History (Updated 09/29/24 @ 10:41 by Zafar Georges MD) Low testosterone Bicipital tendinitis of left shoulder Adhesive capsulitis of left shoulder Cough Impaired concentration Upper back pain on left side Allergy Viral upper respiratory illness Chest pain Atypical chest pain Tick bite of abdominal wall Neck pain Bilateral hand pain Back pain Obesity Hypersomnia On beta kassie at home Asthma H/O acute pancreatitis Heart palpitations Obesity due to excess calories Dizziness Fatty liver Vitamin D deficiency Pancreatitis Hypercholesterolemia Type 2 diabetes mellitus with hyperglycemia Surgical History H/O wisdom tooth extraction Family History Father Alive and well Mother Alive and well Maternal Grandfather Diabetes Maternal Grandmother Diabetes Social History Household Members: Significant Other Household Members Other:: roomates Housing: House Are you a primary primary care provider to a significant other at home: No Alcohol intake: never Patient Tobacco Use Status: Never used Tobacco e-Cigarette/Vaping Use: Never Used Second Hand Smoke Exposure: No service: No 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 1. Little interest or pleasure in doing things: not at all 2. Feeling down, depressed, or hopeless: not at all 3. Trouble falling or staying asleep, or sleeping too much: not at all 4. Feeling tired or having little energy: nearly every day 5. Poor appetite or overeating: not at all 6. Feeling bad about yourself - or that you are a failure or have let yourself or your family down: not at all 7. Trouble concentrating on things, such as reading the newspaper or watching television: several days 8. Moving or speaking so slowly that other people could have noticed. Or the opposite - being so fidgety or restless that you have been moving around a lot more than usual: not at all 9. Thoughts that you would be better off or of hurting yourself in some way: not at all Total score: 4 Depression Screening Interpretation: Positive Depression Screening Done: Yes Source: Developed by Drs. Travon Ward, Nissa Saavedra, Apollo Perry and colleagues, with an educational prerna from [employer]. Thrive Questionnaire Date Thrive assessed: 09/29/24 I am a: Patient What is your living situation today?: I have a steady place to live Within the past 12 months, did the food you bought not last and you didn't have the money to get more?: Never true Within the past 12 months, did you worry whether your food would run out before you got money to buy more?: Never true Do you have trouble paying for medicines?: No Do you have trouble getting transportation to medical appointments?: No Do you have trouble paying your heating and electricity bill?: No Do you have trouble taking care of your child, family member or friend?: No Do you have trouble with day-to-day activities such as bathing, preparing meals, shopping, managing finances, etc.?: No Are you currently unemployed and looking for a job?: No Are you interested in more education?: No Please select the resources that you would like help with: None Currently or been in a relationship where the following occur: No concerns reported THRIVE Score: 0 AUDIT C Alcohol Use Questionnaire (AUDIT-C) 1. How often do you have a drink containing alcohol?: Never Total Score: 0 MARIO-7 AMB Questionnaire MARIO-7 Date MARIO - 7 assessed: 09/29/24 Feeling nervous, anxious, or on edge: 0 = Not at all Not being able to stop or control worryin = Not at all Worrying too much about different things: 0 = Not at all Trouble relaxin = Several days Being so restless that it is hard to sit still: 0 = Not at all Becoming easily annoyed or irritable: 1 = Several days Feeling afraid as if something awful might happen: 0 = Not at all Total MARIO-7 score (0-4 normal; 5-9 mild; 10-14 moderate; 15-21 severe): 2 Source: Developed by Drs. Travon Ward, Nissa Saavedra, Apollo Perry and colleagues, with an educational prerna from [employer]. Physical exam (Primary Care) Vital Signs: Last Vital Signs Pulse 89 09/29/24 10:23 BP 116/84 09/29/24 10:23 Pulse Ox 97 09/29/24 10:23 Oxygen Delivery Method Room Air 09/29/24 10:23 BMI result Body Mass Index 36.5 Tobacco/Smoking Status: Tobacco use Status Tobacco use date assessed 09/29/24 09/29/24 10:26 Patient Tobacco Use Status Never used Tobacco 09/29/24 10:24 e-Cigarette/Vaping Use Never Used 09/29/24 10:24 PHQ-9: PHQ-9 Score PHQ-9: Total score 4 09/29/24 10:26 Depression Screening Interpretation: Positive Thrive Assessment: Date of Thrive Assessment Date Thrive assessed 09/29/24 09/29/24 10:24 Currently or been in a relationship where the following occur: No concerns reported Male genitals images: 1. 1 cm yellowsih mass noted , mild tenderness on the dorsum of the penis Coding Level of Care Code Est Pt Level 3 (53753) Diagnoses Penile cyst N48.89 Assessment & Plan Assessment & Plan (1) Penile cyst: Code(s): N48.89 - Other specified disorders of penis Category: Medical Plan: antibiotic sent and referral to urology for possible excision Plan - Start the patient on a course of antibiotics, specifically Augmentin, to manage the current infection of the penile cyst. - Probiotics are recommended to counteract potential antibiotic-induced diarrhea. - Refer the patient urgently to a urologist for further evaluation and potential removal of the penile cyst, as it may have been related to the patient's circumcision. - The referral is expedited due to the patient?s upcoming travel plans to [place] by October 21, ensuring he receives care before leaving. - No immediate action is needed for the cyst on the leg unless it begins to cause symptoms. Orders: Referrals Urology Referral N48.89 - Other specified disorders of penis Medications: New amoxicillin-pot clavulanate 875-125 mg 1 tab PO BID 14 tabs 0RF
== END 2024-09-29 10:50 | disposition home or self-care (01) ==
PROVIDERS: PCP Internal Medicine; Visit Provider Internal Medicine
DX: N48.89 Other specified disorders of penis (principal)

== ENCOUNTER → 2024-09-29 10:07 | Outpatient (BNVA) | payer OTHER, SELFPAY | PROVIDERS: PCP Internal Medicine; Visit Provider Internal Medicine | DX: N48.89 Other specified disorders of penis (principal) | CPT/HCPCS: 99212 ==

== ENCOUNTER 2024-10-16 12:53 | Outpatient (AMB) | payer OTHER, SELFPAY ==
--- NOTE | 2024-10-16 12:55 | MHC.OFFVIS ---
Vital Signs 10/16/24 12:58 Height 5 ft 6 in Weight 229 lb 6 oz BMI 37.0 Intake Visit Reasons: Localized enlarged lymph nodes Intake Note: This patient presents for localized enlarged lymph nodes. Pt /o; no dysphagia, he reports for the last 2 years I have been trying to figure this out there is something that pops out of my neck . Imaging: US thyroid 09/11/24 Growth Media Mixer Mushroom Required: No Accompanied by: Other Relationship Allergies apple [APPLE] Allergy (Severe, Verified 10/16/24 13:06) THROAT CLOSING AND HIVES animal dander [ANIMAL DANDER] Allergy (Intermediate, Verified 10/16/24 13:06) PUFFY EYES SNEEZING COUGHING bees Allergy (Unknown, Uncoded 10/16/24 13:06) Unknown Medication List - Last Reconciled 10/16/24 by Brian Mack MD albuterol sulfate 90 mcg/actuation 2 puffs inhalation QID PRN amoxicillin-pot clavulanate 875-125 mg 1 tab PO BID Bacillus coagulans (Digestive Advantage Probiotic Gummy) 1 cell PO DAILY blood-glucose meter,continuous (Dexcom G6 Double End Tenoner Operator) As directed check BS TID blood-glucose sensor (DexSocial Median G6 Sensor device) As directed check the BS TID blood-glucose transmitter (Tabluscom G6 Transmitter device) As directed check the BS TID chlorhexidine gluconate 0.12% 15 mL PO BID cholecalciferol (vitamin D3) 50 mcg PO DAILY [cinammon PO] empagliflozin 25 mg PO DAILY glipizide ER 2.5 mg PO DAILY ketoconazole 2% 1 appl topical 2XW lisinopril 2.5 mg PO DAILY 90 days melatonin 20 mg PO .nightly metformin 1,000 mg (2 x 500 mg) PO BID 90 days pantoprazole 40 mg PO DAILY simvastatin 10 mg PO BEDTIME sucralfate 1 g PO BEDTIME 90 days tadalafil 5 mg PO DAILY 90 days HPI HPI Localized enlarged lymph nodes: Details: 39-year-old male referred for an enlarged lymph node. He actually had undergone an ultrasound of the thyroid because of complaints of some discomfort with swallowing. There was note of an incidental finding of 2 enlarged lymph nodes. He says that he has had this sense of feeling a node on the left side for about 2 years now. He did has not really noticed a significant increase in size. His ultrasound of the neck showed the following findings: On the left side was note of a 1.0 by 0.3 x 0.6 level 2 cervical lymph node. Another lymph node was also seen, 1.1 x 0.4 x 0.8 cm with note of a poorly visualized hilum He was therefore instructed to see me He also had a thyroid nodule but this is to be followed [facility] Medical History (Updated 10/16/24 @ 13:06 by Brian Mack MD) Cervical lymphadenopathy Low testosterone Bicipital tendinitis of left shoulder Adhesive capsulitis of left shoulder Cough Impaired concentration Upper back pain on left side Allergy Viral upper respiratory illness Chest pain Atypical chest pain Tick bite of abdominal wall Neck pain Bilateral hand pain Back pain Obesity Hypersomnia On beta kassie at home Asthma H/O acute pancreatitis Heart palpitations Obesity due to excess calories Dizziness Fatty liver Vitamin D deficiency Pancreatitis Hypercholesterolemia Type 2 diabetes mellitus with hyperglycemia Surgical History H/O wisdom tooth extraction Family History Father Alive and well Mother Alive and well Maternal Grandfather Diabetes Maternal Grandmother Diabetes Social History Household Members: Significant Other Household Members Other:: roomates Housing: House Are you a primary acute care certified nursing assistant to a significant other at home: No Alcohol intake: never Patient Tobacco Use Status: Never used Tobacco e-Cigarette/Vaping Use: Never Used Second Hand Smoke Exposure: No service: No 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) Cognitive needs: No Hearing needs: No Vision needs: No Review of Systems Const Denies chills and Denies fever(s) Card Denies chest pain, Denies dyspnea and Denies dyspnea on exertion Resp Denies cough, Denies dyspnea and Denies dyspnea on exertion GI Denies hematochezia and Denies change in bowel habits Denies hematuria and Denies difficulty urinating Musc Denies back pain and Denies limited range of motion Neuro Denies focal weakness and Denies convulsions Psych Denies depression and Denies mood swings Physical Exam Const General: comfortable and no acute distress Orientation/consciousness: patient oriented x3 HEENT Other: Note of a cavity on the right molar Neck Other: I am unable to palpate the enlarged lymph node Neck: Yes no lymphadenopathy Resp Auscultation: clear to auscultation bilaterally Cardio Rhythm: regular rhythm GI Palpation (GI): Soft to palpation, nontender and no guarding Neuro General: patient oriented x3 Assessment & Plan Assessment & Plan (1) Cervical lymphadenopathy: Code(s): R59.0 - Localized enlarged lymph nodes Category: Medical Plan: He was to mildly enlarged lymph nodes on the left side as described above seen on ultrasound. Physical exam does not really reveal this. He does have a bad tooth on the right. I will schedule him for a follow up ultrasound in the next 3 months. I told him that I will see him again in the office thereafter He already had been seen by ENT but he says that he was told that they had no significant findings at this time. Coding Level of Care Code New Pt Level 3 (17426) Diagnoses Cervical lymphadenopathy R59.0
[2024-10-16 12:58] VITALS: BMI 37.0
--- OUTSIDE RECORDS SUMMARY | 2024-10-16 17:34 | XMS_ITS | Clinical Summary ---
Author Organization [facility] Address [address] [place] [address] Care Team Providers Care Philosophy Faculty Name Role Phone Zafar Georges MD Primary Care Provider [phone] Encounters Date Type Department Care Team Description 08/24/2024 9:45 AM EST - 08/24/2024 11:59 PM EST Hospital Encounter [facility] [address] [place] [address] Dysphagia, unspecified type (Primary Dx); Dysphagia Discharge Disposition: Home or Self Care from Last 3 Months Social History Tobacco Use Types Packs/Day Years Used Date Smoking Tobacco: Never Assessed Sex and Gender Information Value Date Recorded Sex Assigned at Not on file Gender Identity Not on file Sexual Orientation Not on file Job Start Date Occupation Industry Not on file Not on file Not on file Plan of Treatment Health Maintenance Due Date Last Done Comments Hepatitis B Vaccines (1 of 3 - 19+ 3-dose series) 2002 COVID-19 Vaccine (2023-2 5 season) 2024 12/16/2020, 11/16/2020 Influenza Vaccine (#1) 2024 Cholesterol Screening (Lipid Panel) 07/08/2024 Depression Screening 07/08/2024 HIV Screening 07/08/2024 Hepatitis C Screening 07/08/2024 Social Influencers of Health Screening 07/08/2024 DTaP,Tdap,and Td Vaccines (2 - Td or Tdap) 04/28/2026 04/28/2016 HIB Vaccines Aged Out No longer eligi ble based on patient's age to complete this topic HPV Vaccines Aged Out No longer eligi ble based on patient's age to complete this topic Hepatitis A Vaccines Aged Out No long er eligible based on patient's age to complete this topic IPV Vaccines Aged Out No longer eligi ble based on patient's age to complete this topic MMR Vaccines Aged Out No longer eligi ble based on patient's age to complete this topic Meningococcal ACWY Vaccine Aged Out N o longer eligible based on patient's age to complete this topic Pneumococcal Vaccine: Pediatrics (0 to 5 Years) and At-Risk Patients (6 to 64 Years) Aged Out No longer eligible b ased on patient's age to complete this topic RSV Immunization Patients Under 20 months Aged Out No longer eligible b ased on patient's age to complete this topic Varicella Vaccines Aged Out No longer eligible based on patient's age to complete this topic Procedures Procedure Name Priority Date/Time Associated Diagnosis Comments XR BARIUM SWALLOW WITH VIDEO AND SPEECH Routine 08/24/2024 10:14 AM EST Dysphagia from Last 3 Months Results * XR Barium Swallow with Video and Speech (08/24/2024 10:14 AM EST) Anatomical Region Laterality Modality Head and Neck Radiographic Vicki ging 08/24/2024 10:4 9 AM EST Impressions 08/24/2024 1:06 PM EST Unable to initiate swallow of 13 mm barium tablet, otherwise normal swallowing function. Please refer to the dedicated speech pathologist report for further details as clinically indicated. -------- FINAL REPORT -------- Dictated By: Cait Ellis Dictated Date: 08/24/2024 10:49 ET Assigned Physician: Nabeel Moser Reviewed and Electronically Signed By: Nabeel Moser Signed Date: 08/24/2024 13:06 ET Workstation ID: [id number] Transcribed By: Self Edit Transcribed Date: 08/24/2024 10:51 ET Resident/PA/HAIR SPECIALIST: Cait Ellis Narrative 08/24/2024 1:06 PM EST CLINICAL HISTORY: Dysphagia. STUDY: Modified barium swallow study COMPARISON: None at this facility HISTORY: Patient is a 39-year-old male reporting history of dysphagia. Patient reports feeling that he has a left-sided obstruction with swallowing, waxes and wanes. TECHNIQUE: ??Multiple sequential fluoroscopic images of the lateral neck were obtained for a swallowing function study. ??Barium enhanced consistencies of pudding, honey, nectar, thin liquid, semi-solid, and a 13 mm barium tablet were utilized for evaluation. ??Examination was performed with the speech therapist present. ?? FINDINGS: There was no evidence for penetration or aspiration of the various consistencies. Patient was unable to initiate swallow 13 mm barium tablet. DAP: 0.58 uGym^2 Procedure Note Nabeel Moser MD - 08/24/2024 CLINICAL HISTORY: Dysphagia. STUDY: Modified barium swallow study COMPARISON: None at this facility HISTORY: Patient is a 39-year-old male reporting history of dysphagia.Patient reports feeling that he has a left-sided obstruction withswallowing, waxes and wanes. TECHNIQUE: Multiple sequential fluoroscopic images of the lateral neckwere obtained for a swallowing function study. Barium enhancedconsistencies of pudding, honey, nectar, thin liquid, semi-solid, and a 13mm barium tablet were utilized for evaluation. Examination was performedwith the speech therapist present. FINDINGS: There was no evidence for penetration or aspiration of the variousconsistencies. Patient was unable to initiate swallow 13 mm barium tablet. DAP: 0.58 uGym^2 IMPRESSION: Unable to initiate swallow of 13 mm barium tablet, otherwise normalswallowing function. Please refer to the dedicated speech pathologist report for furtherdetails as clinically indicated. -------- FINAL REPORT -------- Dictated By: Cait Ellis Dictated Date: 08/24/2024 10:49 ET Assigned Physician: Nabeel Moser Reviewed and Electronically Signed By: Nabeel Moser Signed Date: 08/24/2024 13:06 ET Workstation ID: [id number] Transcribed By: Self Edit Transcribed Date: 08/24/2024 10:51 ET Resident/PA/HAIR SPECIALIST: Cait Ellis Rosario GARCIA IMG FLUOROSCOPY [facility] OCEDURES from Last 3 Months Care Teams Philosophy Faculty Relationship Specialty Start Date End Date Zafar Georges MD [address] [place] [id number] PCP - General Internal Medicine 08/24/24
--- OUTSIDE RECORDS SUMMARY | 2024-10-16 17:34 | XMS_ITS | Data Portability ---
Author Organization [place] - [facility], Allergy Address [address] [address] Assessment Encounter Date Assessment Date Assessment LastModified [...] imaging. He will follow-up to discuss results. [email or web address] Not available 05/19/2024 15:03:20 Plan of Treatment Reminders Order Date Submit Date Provider Last Modified By Organization Details Last Modified Time Details Appointments None recorded. Lab None recorded. Referral None recorded. Procedures None recorded. Surgeries None recorded. Imaging [place], modified barium swallow study [address] [facility] Diagnosit Imaging Dept, [address] [place] [address], [place], [address], 10:20:27 Medication Orders None recorded. Patient TargetsNo targets recorded. Patient InstructionsNo instructions recorded. Reason for Referral None Reported. Results Created Date Observation Date Name Description Value Unit Range Abnormal Flag Note LastModifiedBy Organization Detail LastModifiedTime 05/10/2002/25/2023 jaylai ng/di agnos tic resul t No observ ation record ed. [email or web address] Not Available 01:35:02 08/24/20 24 08/24/2024 fabian elizabeth No observ ation record ed. [email or web address] [address] [place], [address], 08/24/2024 12:54:54 08/24/20 24 08/24/2024 xr ruth chris ow with video and speec h See Note [facility] , a member of [facility] Aung godoy Name: VIVIANA DAMON Date of : 1984 Reason for Exam: dyspha emiliano Exam Date: 2023 [id number] EST Report Status : Final Orderi ng [...] Date: 2023 13:06 ET [facility]st at[facility] Transc ribed By: Self Edit Transc ribed Date: 2023 10:51 ET Reside nt/PA/ DEVICE ENGINEER: Ellis Cait [email or web address] [address], [address], 08/24/2024 13:40:58 Result Notes None recorded. Problems Name Problem SNOMED Code Status Onset Date Resolution Date Notes Provider Name and Address Organization Details Recorded Time Gastroeso phageal reflux disease without esophagit is 921372759 Active 2022 Gastro-es ophageal reflux disease without esophagit is; Note: Date Diagnosed : 03/11/2023 10:29 AM (K21.9) Not Available [facility] 4 03:10:33 Deviated nasal septum 543114229 Active 2020 Deviated nasal septum; Note: Date Diagnosed : 1 9:27 AM (J34.2) Not Available [facility] 4 03:10:33 Chronic rhinitis 98649202 Active 2022 Chronic rhinitis; Note: Date Diagnosed : 03/11/2023 5:47 PM (J31.0) Not Available [facility] 4 03:10:33 Hypertrop hy of nasal turbinate s 49627069 Active 2020 Hypertrop hy of nasal turbinate s; Note: Date Diagnosed : 1 9:27 AM (J34.3) Not Available [facility] 4 03:10:34 Sensation of foreign body in throat 30216538921 9104 Active 2023 ROXANNA XAVIER PA-C [address] [facility],[place] [address], [place], [address] , [place] - [facility] 4 14:56:56 Dysphagia 21822440 Active 2023 ROXANNA XAVIER PA-C [address] [facility],[place] [address], [place], [address] , [place] - [facility] 14:57:39 Problem Notes None recorded. Procedures Surgical History None recorded. Imaging Results Imaging Date Name Status LastModified by Organiz ation Details LastModified Time 02/25/2023 imaging/diagnos tic result completed [email or web address] Information not available 05/10/2024 01:35:02 08/24/2024 procedures completed [address], [address], 08/24/2024 12:54:54 08/24/2024 xr barium swallow with video and speech completed [address], [address], 08/24/2024 13:40:58 Procedure Notes None recorded. Medical [...] mg tablet 05/19 completed Medicati on ID: [id number] B rand Name: meclizin e Send Method: E-Prescr ibed Sub s Allowed: subs OK Medic ationGen ericName : meclizin e Not Available Not Available Not Available simvastat in 5 mg tablet 05/19 completed Medicati on ID: [id number] B rand Name: simvasta tin Send Method: [...] mometason e 50 mcg/actua tion nasal spray [place] 2 spray into both nostrils once a day 2022 active Medicati on ID: [id number] D uration Value: 30 Brand Name: marlyn [...] mg tablet 05/19 completed Medicati on ID: [id number] B rand Name: Jardianc e Send Method: [...] Updated DateTime 05/19/2024 167.64 cm 36.3 kg/m2 242784.28 g Arina Mosquera [place] - [facility] 05/19/2024 13:03:47 Social History None recorded. Functional Status None recorded. Mental Status None recorded. Family History Nothing Reported. Medical History No medical history recorded. Past Encounters Encounter ID Performer Location Encounter Start Date Encounter Closed Date Diagnosis/Indication Diagnosis SNOMED-CT Code Diagnosis ICD10 Code Diagnosis Note [id number] YEMI TANG MD [facility] [address] [place] [address] 05/19/2024 12:56:43 05/19/2024 13:21:52 Sensation of foreign body in throat 9439493182 86231 R09.A2 Health Concerns Section Related Observation LastModified by Organization Detai ls LastModified Time None Recorded Concern Status LastModified by Organization Details LastModified Time None Recorded Advance Directives Directive None Recorded Payers Encounter Date Sequence Insurance Name Policy Number Policy Patel Covered Member ID Patel Member ID Guarantor Name 05/19/2024 1 [facility] (MEDICAID REPLACEMENT - HMO) [id number] Viviana Damon [id number] Viviana Damon Notes Date Note Type [...] April were benign. CT neck performed at [place] 02/2023 without abnormality. There was concern for [...] was not recommended. YEMI MARIE MD [address] [place] [address], [phone], [facility] - [facility] 05/19/2024 16:01:17
== END 2024-10-16 13:28 | disposition home or self-care (01) ==
PROVIDERS: PCP Internal Medicine; Visit Provider Surgery
DX: R59.0 Localized enlarged lymph nodes (principal)
CPT/HCPCS: 99203

== ENCOUNTER → 2024-10-16 12:53 | Outpatient (BNVA) | payer OTHER, SELFPAY | PROVIDERS: PCP Internal Medicine; Visit Provider Surgery | DX: R59.0 Localized enlarged lymph nodes (principal) | CPT/HCPCS: 99202 ==

== ENCOUNTER 2024-11-24 15:34 | Outpatient (AMB) | payer OTHER, SELFPAY ==
--- NOTE | 2024-11-24 15:34 | A.OFFVIS_ITS ---
Intake Visit Reasons: labs/discuss penile cyst Intake Note: Patient presents today via telehealth video call for 3 month labs/discuss penile cyst Meds- Tadalafil Allergies to Antibiotic- No Known Allergies Blood Thinner- None Content Assistant Required: No Accompanied by: Self / Same As Patient Allergies apple [APPLE] Allergy (Severe, Verified 11/24/24 15:38) THROAT CLOSING AND HIVES animal dander [ANIMAL DANDER] Allergy (Intermediate, Verified 11/24/24 15:38) PUFFY EYES SNEEZING COUGHING bees Allergy (Unknown, Uncoded 10/16/24 13:06) Unknown HPI Comments Details: 11/24/24-- 39-year-old male presenting with hypogonadism and erectile dysfunction. He was identified with low testosterone levels several months prior and initiated on a daily low-dose tadalafil regimen; His medical history includes type 2 diabetes mellitus and obesity, both contributing factors to low testosterone. He has noted minimal improvement. The patient maintains the ability to engage sexually, albeit with diminished erectile firmness. Additionally, he reports a long-standing nodule or cyst at the circumcision line, which occasionally becomes inflamed. Intent on its removal, the patient is considering surgical options. Urinary Symptoms Review - No specific urinary symptoms discussed. Results - Labs: Low testosterone levels; slightly elevated estradiol level, but not of clinical concern. 02/24/24--Jean-Pierre is here for evaluation for low testosterone. 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 Discussed repeat labs. Discussed increased physical activity, exercising can help with increasing testosterone levels. [facility] Medical History Cervical lymphadenopathy Low testosterone Bicipital tendinitis of left shoulder Adhesive capsulitis of left shoulder Cough Impaired concentration Upper back pain on left side Allergy Viral upper respiratory illness Chest pain Atypical chest pain Tick bite of abdominal wall Neck pain Bilateral hand pain Back pain Obesity Hypersomnia On beta kassie at home Asthma H/O acute pancreatitis Heart palpitations Obesity due to excess calories Dizziness Fatty liver Vitamin D deficiency Pancreatitis Hypercholesterolemia Type 2 diabetes mellitus with hyperglycemia Surgical History H/O wisdom tooth extraction Family History Father Alive and well Mother Alive and well Maternal Grandfather Diabetes Maternal Grandmother Diabetes Social History Household Members: Significant Other Household Members Other:: roomates Housing: House Are you a primary childcare teacher to a significant other at home: No Alcohol intake: never Patient Tobacco Use Status: Never used Tobacco e-Cigarette/Vaping Use: Never Used Second Hand Smoke Exposure: No service: No 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) Cognitive needs: No Hearing needs: No Vision needs: No Telehealth Telehealth Telehealth Platform: [facility] Location of provider rendering services: practice address Location of patient: address on file Patient Identification confirmed using: Name, : Yes Telehealth method: video Patient verbally consented to treatment: Yes Patient verbally consented to billing insurance company: Yes Patient informed of any privacy concerns related to visit: Yes Assessment & Plan Assessment & Plan (1) Low testosterone: Code(s): R79.89 - Other specified abnormal findings of blood chemistry Category: Medical (2) Testosterone deficiency in male: Code(s): E29.1 - Testicular hypofunction Category: Medical (3) Erectile dysfunction: Code(s): N52.9 - Male erectile dysfunction, unspecified Category: Medical Plan - Consider discontinuing Cialis for two months to evaluate any changes in erectile function. - Focus on lifestyle modifications to aid in weight loss. - Schedule a follow-up visit in approximately four months to reassess symptoms. - he reports a long-standing nodule or cyst at the circumcision line, which occasionally becomes inflamed. evaluate on fu. Patient Instructions: The patient had an opportunity to ask questions regarding treatment plan. The patient expressed understanding and agreement with the above treatment plan. The patient is aware they should contact our office by phone for worsening of their current condition or the appearance of new symptoms. Compliance is encouraged with any medications and followup testing that is ordered. It is a privilege to be allowed the opportunity to participate in the urologic care of your patient. If you have any questions or concerns regarding treatment for the above conditions please do not hesitate to contact me. The office t elephone contact is [phone]. This note is constructed in part using voice recognition software. While every effort has been made to ensure accuracy pipe or steam fitter furnace installer errors may have been included. Yours sincerely, Fanta Blair MD Scribe Plan - Not visible on output: Patient was informed and verbally consented to the use of an ambient scribe for clinic note documentation during this visit. Coding Level of Care Code Tele Est Pt Level 3 (94001) Diagnoses Low testosterone R79.89 Testosterone deficiency in male E29.1 Erectile dysfunction N52.9
--- OUTSIDE RECORDS SUMMARY | 2024-11-24 17:03 | XMS_ITS | Data Portability ---
Author Organization [place] - [facility], Allergy Address [address] [address] Assessment Encounter Date Assessment Date Assessment LastModified [...] [place], modified barium swallow study 2023 024 [facility] Diagnosit Imaging Dept, [address] [place] [address], [place], [address], 10:20:27 Medication Orders None recorded. Patient TargetsNo targets recorded. Patient InstructionsNo instructions recorded. Reason for Referral None Reported. Results Created Date Observation Date Name Description Value Unit Range Abnormal Flag Note LastModifiedBy Organization Detail LastModifiedTime 05/10/2002/25/2023 jaylai ng/di agnos tic resul t No observ ation record ed. [email or web address] Not Available 01:35:02 08/24/20 24 08/24/2024 fabian elizabeth No observ ation record ed. 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 Problems Name Problem SNOMED Code Status Onset Date Resolution Date Notes Provider Name and Address Organization Details Recorded Time Gastroeso phageal reflux disease without esophagit is 503403562 Active 2022 Gastro-es ophageal reflux disease without esophagit is; Note: Date Diagnosed : 03/11/2023 10:29 AM (K21.9) Not Available [facility] 4 03:10:33 Deviated nasal septum 709291648 Active 2020 Deviated nasal septum; Note: Date Diagnosed : 1 9:27 AM (J34.2) Not Available [facility] 4 03:10:33 Chronic rhinitis 69101167 Active 2022 Chronic rhinitis; Note: Date Diagnosed : 03/11/2023 5:47 PM (J31.0) Not Available [facility] 4 03:10:33 Hypertrop hy of nasal turbinate s 38558857 Active 2020 Hypertrop hy of nasal turbinate s; Note: Date Diagnosed : 1 9:27 AM (J34.3) Not Available [facility] 4 03:10:34 Sensation of foreign body in throat 21352757367 9104 Active 2023 ROXANNA XAVIER PA-C [address] [facility],[place] [address], [place], [address] , [place] - [facility] 4 14:56:56 Dysphagia 24572080 Active 2023 ROXANNA XAVIER PA-C [address] [facility],[place] [address], [place], [address] , [place] - [facility] 14:57:39 Problem Notes None recorded. Procedures Surgical History None recorded. Imaging Results Imaging Date Name Status LastModified by Organiz ation Details LastModified Time 02/25/2023 imaging/diagnos tic result completed [email or web address] Information not available 05/10/2024 01:35:02 08/24/2024 procedures completed [address], [address], 08/24/2024 12:54:54 08/24/2024 xr barium swallow with video and speech completed [address], [address], 08/24/2024 13:40:58 Procedure Notes None recorded. Medical [...] mg tablet 05/19 completed Medicati on ID: [id number] B rand Name: meclizin e Send Method: E-Prescr ibed Sub s Allowed: subs OK Medic ationGen ericName : meclizin e Not Available Not Available Not Available simvastat in 5 mg tablet 05/19 completed Medicati on ID: [id number] B rand Name: simvasta tin Send Method: [...] mometason e 50 mcg/actua tion nasal spray [place] 2 spray into both nostrils once a day 2022 active Medicati on ID: [id number] D uration Value: 30 Brand Name: marlyn [...] mg tablet 05/19 completed Medicati on ID: [id number] B rand Name: Jardianc e Send Method: [...] Updated DateTime 05/19/2024 167.64 cm 36.3 kg/m2 974767.28 g Arina Mosquera [place] - [facility] 05/19/2024 13:03:47 Social History None recorded. Functional Status None recorded. Mental Status None recorded. Family History Nothing Reported. Medical History No medical history recorded. Past Encounters Encounter ID Performer Location Encounter Start Date Encounter Closed Date Diagnosis/Indication Diagnosis SNOMED-CT Code Diagnosis ICD10 Code Diagnosis Note [id number] YEMI TANG MD [facility] [address] [place] [address] 05/19/2024 12:56:43 05/19/2024 13:21:52 Sensation of foreign body in throat 8564747892 35722 R09.A2 Health Concerns Section Related Observation LastModified by Organization Detai ls LastModified Time None Recorded Concern Status LastModified by Organization Details LastModified Time None Recorded Advance Directives Directive None Recorded Payers Encounter Date Sequence Insurance Name Policy Number Policy Patel Covered Member ID Patel Member ID Guarantor Name 05/19/2024 1 [facility] (MEDICAID REPLACEMENT - HMO) [id number] Viviana Damon [id number] Viviana Damon Notes Date Note Type [...] April were benign. CT neck performed at [place] 02/2023 without abnormality. There was concern for [...] immunotherapy was not recommended. YEMI MARIE MD [address] [place] [address], [phone], [facility] - [facility] 05/19/2024 16:01:17
--- OUTSIDE RECORDS SUMMARY | 2024-11-24 17:03 | XMS_ITS | Clinical Summary ---
Author Organization [facility] [place] [address] Care Team Providers Care Java Sybase Developer Name Role Phone Zafar Georges MD Primary Care Provider [phone] Social History Tobacco Use Types Packs/Day Years Used Date Smoking Tobacco: Never Assessed Sex and Gender Information Value Date Recorded Sex Assigned at Not on file Legal Sex Male 6:32 PM EDT Gender Identity Not on file Sexual Orientation Not on file Plan of Treatment Health [...] patient's age to complete this topic Meningococcal B Vacine Aged Out No lo nger eligible based on patient's age to complete [...] on patient's age to complete this topic [place] [address] Care Teams Java Sybase Developer Relationship Specialty Start Date End Date Zafar Georges MD [address] [place] [address] PCP - General Internal Medicine 08/24/24
== END 2024-11-24 16:30 | disposition home or self-care (01) ==
LOC: HO.HUSH 15:34
PROVIDERS: PCP Internal Medicine; Visit Provider Urology
DX: R79.89 Other specified abnormal findings of blood chemistry (principal); E29.1 Testicular hypofunction; N52.9 Male erectile dysfunction, unspecified
CPT/HCPCS: 99213

== ENCOUNTER → 2024-11-24 15:34 | Outpatient (BNVA) | payer OTHER, SELFPAY | PROVIDERS: PCP Internal Medicine; Visit Provider Urology ==